=== PATIENT | female | born 1950 | race Caucasian/White ===

== ENCOUNTER 2020-04-28 13:29 | Inpatient (IN) | payer MEDICARE, OTHER ==
[~2020-04-28] VITALS: Ht 149 cm; Wt 90.7 kg
[~2020-04-28 13:29] MED LIST: CLN.1T PO; LISI1TAB46 PO; MTP25TSR PO; NF-METHI10 PO; OXYC1TAB87 PO; PROM25SU43 RC
[2020-04-28 13:55] LABS: BASOPHILS % (AUTO) 1 % (0-10); EOSINOPHILS # (AUTO) 0.2 10^3/uL (0.0-0.3); EOSINOPHILS % (AUTO) 2 % (0-10); HEMATOCRIT 46 % (35-52); HEMOGLOBIN 14.4 g/dL (11.5-16.0); LYMPHOCYTES % (AUTO) 31 % (12-44); MEAN CORPUSCULAR HEMOGLOBIN 28 pg (25-34); MEAN CORPUSCULAR HGB CONC 32 g/dL (32-36); MEAN CORPUSCULAR VOLUME 89 fL (80-99); MEAN PLATELET VOLUME 11.1 fL (9.0-12.2); MONOCYTES # (AUTO) 0.6 10^3/uL (0.0-1.0); MONOCYTES % (AUTO) 10 % (0-12); NEUTROPHILS # (AUTO) 3.7 10^3/uL (1.8-7.8); NEUTROPHILS % (AUTO) 56 % (42-75); PLATELET COUNT 276 10^3/uL (130-400); WHITE BLOOD COUNT 6.6 10^3/uL (4.3-11.0)
[2020-04-28 13:59] LABS: ALBUMIN 4.2 GM/DL (3.2-4.5); POTASSIUM 3.7 MMOL/L (3.6-5.0)
[2020-04-28 14:00] LABS: CALCIUM 9.6 MG/DL (8.5-10.1)
[2020-04-28 14:01] LABS: PROTHROMBIN TIME PATIENT 13.4 SEC (12.2-14.7)
[2020-04-28 14:02] LABS: TOTAL PROTEIN 7.5 GM/DL (6.4-8.2)
[2020-04-28 14:03] LABS: BILIRUBIN,TOTAL 0.3 MG/DL (0.1-1.0)
[2020-04-28 14:05] LABS: CREATININE SERUM 1.12 MG/DL (0.60-1.30)
--- NOTE | 2020-04-28 14:05 | Diagnostic Imaging Report ---
PROCEDURE: CT head without contrast. TECHNIQUE: Multiple contiguous axial images were obtained through the brain without the use of intravenous contrast. Auto Exposure Controls were utilized during the CT exam to meet ALARA standards for radiation dose reduction. INDICATION: Right-sided strokelike symptoms difficulty walking slurred speech FINDINGS: Noncontrast CT scan the head demonstrates mass effect midline shift hemorrhage or extra-axial fluid collections. Mason-white matter differentiation is normal. Ventricles cortical sulci and basilar cisterns appear normal. Osseous structures are normal. IMPRESSION: Normal noncontrast CT scan the head. Dictated by: Dictated on workstation # [id number]
--- NOTE | 2020-04-28 14:14 | Diagnostic Imaging Report ---
INDICATION: Stroke-like symptoms. FINDINGS: Frontal view of the chest demonstrates heart size to be borderline enlarged with normal vascularity. The lungs are clear. There are no pleural effusions. IMPRESSION: There is borderline cardiomegaly. No acute findings are present. Dictated by: Dictated on workstation # [id number]
--- NOTE | 2020-04-28 14:37 | ED Neurological Problem ---
General Chief Complaint: Neuro-Stroke Like Symptoms Stated Complaint: STROKE Nursing Triage Note: PT PRESENTS TO ED VIA EMS FROM HOME WITH COMPLAINTS OF R HAND AND R FOOT WEAKNESS AND SLURRED SPEACH STARTING SOMETIME LAST NIGHT AFTER SHE WENT TO BED AROUND 1030. PT REPORTS SHE WOKE UP AT 0300 THIS AM TO USE THE RESTROOM AND NOTICED HER R ARM FELT NUMB. Nursing Sepsis Screen: No Definite Risk History of Present Illness Date Seen by Provider: Apr 28, 2020 Time Seen by Provider: 13:32 Initial Comments Patient is a 77-year-old female who presents to the emergency department today with a chief complaint of right arm and right leg weakness. Patient states that she went to bed at around 1030 feeling completely normal. She woke up at 3:00 in the morning to go to the bathroom and noticed that she had some right leg weakness and possibly some right arm weakness at that time. Patient states she went back to bed and got up at around 7:00 this morning and was able to go about her daily activities with a little bit of a limp and noticed that her right arm coordination was a little bit off. Her noted some slurred speech later in the day and decided that they should call an ambulance. Patient denies any type of headache. She denies any recent fevers, chills, congestion or URI symptoms. No Covid concerns. Patient denies any history of trauma. She denies any visual problems. She does note that her speech is a little off. All other review of systems reviewed and negative except as stated. Timing/Duration: other (Since at least 3 AM in the morning this morning) Severity: moderate Associated Symptoms: weakness (Focal weakness right arm and right leg) Allergies and Home Medications Allergies Coded Allergies: Fish Containing Products (Unverified Allergy, Unknown, Rash, 05/01/20) adhesive tape (Verified Allergy, Unknown, HIVES, 12/11/14) cheese (Unverified Allergy, Unknown, Rash, 05/01/20) peanut (Unverified Allergy, Unknown, Rash, 05/01/20) Home Medications Acetaminophen 500 Mg Tablet, 500 MG PO for PAIN-MILD (1-4), (Reported) Aspirin 81 Mg Tablet.dr, 81 MG PO DAILY, (Reported) Cholecalciferol (Vitamin D3) 50 Mcg Capsule, 50 MCG PO SAT, (Reported) Clonidine HCl 0.1 Mg Tablet, 0.1 MG PO HS, (Reported) Fenofibrate Nanocrystallized 145 Mg Tablet, 145 MG PO HS, (Reported) Levothyroxine Sodium 112 Mcg Tablet, 112 MCG PO DAILY, (Reported) Lisinopril 40 Mg Tablet, 40 MG PO DAILY, (Reported) Loratadine 10 Mg Tablet, 10 MG PO DAILY, (Reported) Metoprolol Succinate 25 Mg Tab.er.24h, 25 MG PO DAILY, (Reported) Patient Home Medication List Home Medication List Reviewed: Yes Review of Systems Review of Systems Constitutional: see HPI Eyes: No Symptoms Reported Ears, Nose, Mouth, Throat: no symptoms reported Respiratory: no symptoms reported Cardiovascular: no symptoms reported Gastrointestinal: no symptoms reported Genitourinary: no symptoms reported Musculoskeletal: no symptoms reported Skin: no symptoms reported Psychiatric/Neurological: Weakness (Focal weakness right arm right leg) Past Glptjtv-Mchvcl-Ggoawj Hx Patient Social History Alcohol Use: Denies Use Smoking Status: Never a Smoker Recent Infectious Disease Expo: No Past Medical History Surgeries: Yes (RIGHT KIDNEY REMOVED, L MASTECTOMY, ) Hysterectomy Respiratory: Yes Sleep Apnea Currently Using CPAP: Yes Cardiac: Yes High Cholesterol, Hypertension Neurological: No Reproductive Disorders: No Genitourinary: No Gastrointestinal: No Musculoskeletal: No Endocrine: No (GETTING THYROID CHECKED OUT 12/12/14) Hypothyroidsim Cancer: Yes Breast Psychosocial: No Integumentary: Yes (SENSITIVE SKIN) Blood Disorders: No Family Medical History Arthritis 19 MOTHER Cataracts 19 MOTHER Colon cancer 19 MOTHER G8 SISTER Diabetes mellitus 19 MOTHER Psychosocial problem G8 BROTHER Thyroid disease 19 MOTHER Physical Exam Vital Signs Vital Signs - First Documented 04/28/20 13:33 Temp 36.9 Pulse 86 Resp 18 B/P (MAP) 201/113 (142) Pulse Ox 96 Capillary Refill : Less Than 3 Seconds Height, Weight, BMI Height: 5'0.00" Weight: 195lbs. oz. 88.658102tl; 40.00 BMI Method: General Appearance: WD/WN, no apparent distress HEENT: PERRL/EOMI Neck: full range of motion Respiratory: lungs clear, normal breath sounds, no respiratory distress, no accessory muscle use Cardiovascular: regular rate, rhythm, no murmur Gastrointestinal: non tender, soft Back: normal inspection Extremities: normal inspection, no pedal edema, no calf tenderness Neurologic/Psychiatric: alert, normal mood/affect, oriented x 3, abnormal cerebellar tests, motor weakness (Right arm right leg) Crainal Nerves: normal hearing, abnormal speech (Very mild dysarthria), tongue deviation to L Coordination/Gait: negative Romberg's sign, ABN nose to finger (R) Motor/Sensory: no sensory deficit, no pronator drift, negative Babinski's sign Skin: normal color, warm/dry Stroke NIH Stroke Scale Assessment Level of Consciousness: 0=Alert (0), Level of Consciousness-Questions: 0=Answers both month/age (0), LOC Commands: 0=Performs both tasks (0), Visual Ureña: 0=No visual loss (0), Facial Movement (Facial Paresis): 0=Normal symmetrical mnt (0), Motor Function-Arms Right: 1=Drift (1), Motor Function- Arms Left: 0=No drift (0), Motor Function-Legs Right: 2=Some effort/gravity (2), Motor Function-Legs Left: 0=No drift (0), Limb Ataxia: 1=Present in one limb (1), Sensory: 0=Normal:no loss (0), Best Language: 0=No aphasia (0), Dysarthria: 1=Mild to moderate loss (1), Extinction & Inattention: 0=No abnormality (0), Total: 5 Progress/Results/Core Measures Results/Orders Lab Results Laboratory Tests Test 04/28/20 13:35 04/28/20 13:39 Range/Units Glucometer 116 H 70-110 MG/DL White Blood Count 6.6 4.3-11.0 10^3/uL Red Blood Count 5.11 3.80-5.11 10^6/uL Hemoglobin 14.4 11.5-16.0 g/dL Hematocrit 46 35-52 % Mean Corpuscular Volume 89 80-99 fL Mean Corpuscular Hemoglobin 28 25-34 pg Mean Corpuscular Hemoglobin Concent 32 32-36 g/dL Red Cell Distribution Width 13.2 10.0-14.5 % Platelet Count 276 130-400 10^3/uL Mean Platelet Volume 11.1 9.0-12.2 fL Immature Granulocyte % (Auto) 1 % Neutrophils (%) (Auto) 56 42-75 % Lymphocytes (%) (Auto) 31 12-44 % Monocytes (%) (Auto) 10 0-12 % Eosinophils (%) (Auto) 2 0-10 % Basophils (%) (Auto) 1 0-10 % Neutrophils # (Auto) 3.7 1.8-7.8 10^3/uL Lymphocytes # (Auto) 2.0 1.0-4.0 10^3/uL Monocytes # (Auto) 0.6 0.0-1.0 10^3/uL Eosinophils # (Auto) 0.2 0.0-0.3 10^3/uL Basophils # (Auto) 0.0 0.0-0.1 10^3/uL Immature Granulocyte # (Auto) 0.0 0.0-0.1 10^3/uL Prothrombin Time 13.4 12.2-14.7 SEC INR Comment 1.0 0.8-1.4 Activated Partial Thromboplast Time 22 L 24-35 SEC Sodium Level 139 135-145 MMOL/L Potassium Level 3.7 3.6-5.0 MMOL/L Chloride Level 106 98-107 MMOL/L Carbon Dioxide Level 22 21-32 MMOL/L Anion Gap 11 5-14 MMOL/L Blood Urea Nitrogen 16 7-18 MG/DL Creatinine 1.12 0.60-1.30 MG/DL Estimat Glomerular Filtration Rate 48 BUN/Creatinine Ratio 14 Glucose Level 167 H 70-105 MG/DL Calcium Level 9.6 8.5-10.1 MG/DL Corrected Calcium 9.4 8.5-10.1 MG/DL Total Bilirubin 0.3 0.1-1.0 MG/DL Aspartate Amino Transf (AST/SGOT) 38 H 5-34 U/L Alanine Aminotransferase (ALT/SGPT) 58 H 0-55 U/L Alkaline Phosphatase 73 40-136 U/L Total Protein 7.5 6.4-8.2 GM/DL Albumin 4.2 3.2-4.5 GM/DL Triglycerides Level 231 H <150 MG/DL Cholesterol Level 186 < 200 MG/DL LDL Cholesterol Direct 132 H 1-129 MG/DL VLDL Cholesterol 46 H 5-40 MG/DL HDL Cholesterol 41 40-60 MG/DL My Orders Orders - JEREMIAH CASTANON MD Ct Head Wo (04/28/20 13:48) Cbc With Automated Diff (04/28/20 13:48) Comprehensive Metabolic Panel (04/28/20 13:48) Ekg Tracing (04/28/20 13:48) Chest 1 View, Ap/Pa Only (04/28/20 13:48) Protime With Inr (04/28/20 13:48) Partial Thromboplastin Time (04/28/20 13:48) Aspirin Tablet (Aspirin Tablet) (04/28/20 15:00) Ns (Ivpb) (Sodium C... W/Nicardipine Iv (04/28/20 15:00) Medications Given in ED Vital Signs/I&O 04/28/20 13:33 Temp 36.9 Pulse 86 Resp 18 B/P (MAP) 201/113 (142) Pulse Ox 96 Blood Pressure Mean: 142 Progress Progress Note : Time: 14:34 Progress Note Case discussed with Dr. Foster at neurology. Patient at this time she believes has a very low likelihood of large vessel occlusion. And as the patient is so far outside any TPA window at this time would have nothing to offer this patient. She recommends MRI of the head and MRA of the head and neck tomorrow. She also cautioned on any significant interventions regarding her blood pressure. Case will be discussed with Dr. Dave on for the hospitalist service. Patient's blood pressure is currently 201/113 Initial ECG Impression Date: Apr 28, 2020 Initial ECG Impression Time: 14:15 Initial ECG Rate: 79 Initial ECG Rhythm: Normal Sinus Initial ECG Intervals: Normal Initial ECG Impression: Nonspecific Changes Diagnostic Imaging Diagonstic Imaging: CT Plain Films/CT/US/NM/MRI: head Comments [place], [place] NAME: ADE PIÑA [facility] REC#: [id number] PT STATUS: REG ER : 1950 PHYSICIAN: JEREMIAH CASTANON MD ADMIT DATE: 04/28/20/ER Signed Date of Exam:04/28/20 CT HEAD WO PROCEDURE: CT head without contrast. TECHNIQUE: Multiple contiguous axial images were obtained through the brain without the use of intravenous contrast. Auto Exposure Controls were utilized during the CT exam to meet ALARA standards for radiation dose reduction. INDICATION: Right-sided strokelike symptoms difficulty walking slurred speech FINDINGS: Noncontrast CT scan the head demonstrates mass effect midline shift hemorrhage or extra-axial fluid collections. Mason-white matter differentiation is normal. Ventricles cortical sulci and basilar cisterns appear normal. Osseous structures are normal. IMPRESSION: Normal noncontrast CT scan the head. Dictated by: Dictated on workstation # [id number] Dict: 04/28/20 1404 Trans: 04/28/201403 [id number] Interpreted by: MIRELLA WOOD MD Electronically signed by: MIRELLA WOOD MD 04/28/20 1404 [facility] [place], [place] NAME: ADE PIÑA [facility] REC#: [id number] PT STATUS: REG ER : 1950 PHYSICIAN: JEREMIAH CASTANON MD ADMIT DATE: 04/28/20/ER Signed Date of Exam:04/28/20 CHEST 1 VIEW, AP/PA ONLY INDICATION: Stroke-like symptoms. FINDINGS: Frontal view of the chest demonstrates heart size to be borderline enlarged with normal vascularity. The lungs are clear. There are no pleural effusions. IMPRESSION: There is borderline cardiomegaly. No acute findings are present. Dictated by: Dictated on workstation # [id number] Dict: 04/28/20 140 Trans: 04/28/20 143 [facility] [id number] Interpreted by: MIRELLA WOOD MD Electronically signed by: MIRELLA WOOD MD 04/28/20 143 Departure Communication (Admissions) Time/Spoke to Admitting Phy: 14:[address] Dave Impression Primary Impression: Acute CVA (cerebrovascular accident) Additional Impression: Hypertension Qualified Codes: I10 - Essential (primary) hypertension Disposition: ADMITTED INPATIENT Condition: Stable Admissions Decision to Admit Reason: Admit from ER (General) Decision to Admit/Date: Apr 28, 2020 Time/Decision to Admit Time: 14:47 Departure-Patient Inst. Referrals: JOSETTE BIGGS MD (PCP) Primary Care Physician JEREMIAH CASTANON MD Apr 28, 2020 14:37
[2020-04-28] MEDS ORDERED: ASPIRIN 325 MG (5 GR) TABLET PO ONE (15:00)
[2020-04-28] MEDS ORDERED: niCARdipine IV 50 MG in NS (IVPB) 230 ML IV SCH (15:00)
[2020-04-28 16:00] VITALS: BP 173/97
[2020-04-28 16:23] LABS: TRIGLYCERIDES 231 MG/DL (<150); VLDL CHOLESTEROL 46 MG/DL (5-40)
[2020-04-28 16:28] LABS: CHOLESTEROL 186 MG/DL (< 200); HDL CHOLESTEROL 41 MG/DL (40-60)
[2020-04-28] MEDS ORDERED: LEVO112T55 PO (16:34)
[2020-04-28] MEDS ORDERED: ACETAMINOPHEN 325 MG TABLET PO ONE (20:00)
[2020-04-29] MEDS ORDERED: niCARdipine IV 50 MG in NS (IVPB) 230 ML IV SCH (02:00)
[2020-04-29 03:20] LABS: BASOPHILS % (AUTO) 0 % (0-10); EOSINOPHILS # (AUTO) 0.2 10^3/uL (0.0-0.3); EOSINOPHILS % (AUTO) 2 % (0-10); HEMATOCRIT 45 % (35-52); HEMOGLOBIN 14.3 g/dL (11.5-16.0); LYMPHOCYTES # (AUTO) 2.3 10^3/uL (1.0-4.0); LYMPHOCYTES % (AUTO) 25 % (12-44); MEAN CORPUSCULAR HEMOGLOBIN 28 pg (25-34); MEAN CORPUSCULAR HGB CONC 32 g/dL (32-36); MEAN CORPUSCULAR VOLUME 88 fL (80-99); MEAN PLATELET VOLUME 11.5 fL (9.0-12.2); MONOCYTES # (AUTO) 0.9 10^3/uL (0.0-1.0); MONOCYTES % (AUTO) 10 % (0-12); NEUTROPHILS # (AUTO) 5.6 10^3/uL (1.8-7.8); NEUTROPHILS % (AUTO) 63 % (42-75); PLATELET COUNT 274 10^3/uL (130-400); WHITE BLOOD COUNT 8.9 10^3/uL (4.3-11.0)
[2020-04-29 03:35] LABS: POTASSIUM 3.8 MMOL/L (3.6-5.0)
[2020-04-29 03:36] LABS: CALCIUM 9.5 MG/DL (8.5-10.1)
[2020-04-29 03:40] LABS: CREATININE SERUM 1.06 MG/DL (0.60-1.30); PHOSPHORUS 3.5 MG/DL (2.3-4.7)
[2020-04-29 03:43] LABS: MAGNESIUM 2.1 MG/DL (1.6-2.4)
--- NOTE | 2020-04-29 04:49 | Pulmonary Consultation ---
History of Present Illness History of Present Illness Date Seen by Provider: Apr 29, 2020 Time Seen by Provider: 04:45 Date of Admission Allergies and Home Medications Allergies Coded Allergies: adhesive tape (Verified Allergy, Unknown, HIVES, 12/11/14) Home Medications Clonidine HCl 0.1 Mg Tablet, 0.1 MG PO DAILY, (Reported) Levothyroxine Sodium 112 Mcg Tablet, 115 MCG PO DAILY, (Reported) Metoprolol Succinate 25 Mg Tab.er.24h, 25 MG PO DAILY, (Reported) Past Fieskky-Loewze-Dzaveb Hx Patient Social History Alcohol Use: Denies Use Smoking Status: Never a Smoker Recent Infectious Disease Expo: No Past Medical History Surgeries: Yes (RIGHT KIDNEY REMOVED, L MASTECTOMY, ) Hysterectomy Respiratory: Yes Sleep Apnea Currently Using CPAP: Yes Cardiac: Yes High Cholesterol, Hypertension Neurological: No Reproductive Disorders: No Genitourinary: No Gastrointestinal: No Musculoskeletal: No Endocrine: No (GETTING THYROID CHECKED OUT 12/12/14) Hypothyroidsim Cancer: Yes Breast Psychosocial: No Integumentary: Yes (SENSITIVE SKIN) Blood Disorders: No Family Medical History Arthritis 19 MOTHER Cataracts 19 MOTHER Colon cancer 19 MOTHER G8 SISTER Diabetes mellitus 19 MOTHER Psychosocial problem G8 BROTHER Thyroid disease 19 MOTHER Review of Systems Time Seen by Provider: 04:49 Sepsis Event Evaluation Height, Weight, BMI Height: 5'0.00" Weight: 195lbs. oz. 88.946310pb; 40.85 BMI Method: Exam Exam Vital Signs Date Time Temp Pulse Resp B/P (MAP) Pulse Ox O2 Delivery O2 Flow Rate FiO2 04/29/20 04:00 93 Room Air 04/29/20 01:00 83 04/29/20 00:04 37.0 04/29/20 00:00 97 Room Air 04/28/20 23:00 85 18 179/93 (121) 94 Room Air 04/28/20 21:00 89 29 161/98 (119) 95 Room Air 04/28/20 20:00 98 Room Air 04/28/20 20:00 96 32 152/93 (112) 94 Room Air 04/28/20 19:17 36.5 88 18 147/86 (106) 96 Room Air 04/28/20 19:00 94 04/28/20 19:00 94 30 145/95 (112) 96 Room Air 04/28/20 18:00 91 11 153/93 (113) 96 Room Air 04/28/20 17:05 87 04/28/20 17:00 86 24 135/80 (98) 98 Room Air 04/28/20 16:29 86 17 150/94 (112) 99 Room Air 04/28/20 16:00 36.9 84 18 173/97 (142) 96 04/28/20 16:00 98 Room Air 04/28/20 13:33 36.9 86 18 201/113 (142) 96 I & O 04/29/20 07:00 Intake Total 1000 ml Output Total 2950 ml Balance -1950 ml Height & Weight Height: 5'0.00" Weight: 195lbs. oz. 88.437180lg; 40.85 BMI Method: Capillary Refill: Less Than 3 Seconds Gastrointestinal: non tender, soft Results Lab Laboratory Tests 04/28/20 13:39 04/29/20 02:39 Assessment/Plan Assessment/Plan Acute CVA with right sided weakness -Was not a candidate for TPA -[facility] neurology consulted while in the ED -Head CT is negative -Head MRI head and neck scheduled for this morning -Speech and PT/ot consulted -Pt passed bedside swallow eval HTNE -Cardene gtt is now off -Monitor -Restart home meds Hypothyroid -home meds restart FRANCINE MIKE DO Apr 29, 2020 04:49
[2020-04-29] MEDS ORDERED: ACETAMINOPHEN 325 MG TABLET PO PRN (06:00)
--- NOTE | 2020-04-29 07:26 | Diagnostic Imaging Report ---
INDICATION: Dyspnea. COMPARISON: 04/28/2020 FINDINGS: Single frontal radiograph view of the chest was obtained and shows normal cardiac silhouette and pulmonary vasculature. Evaluation of lung damian show asymmetric elevation right hemidiaphragm. Lungs are otherwise clear. There is no large effusion or pneumothorax. Osseous structures show no acute adverse interval change. IMPRESSION: 1. No acute cardiopulmonary process. Dictated by: Dictated on workstation # [id number]
[2020-04-29] MEDS ORDERED: LISI40TA PO (08:27)
[2020-04-29] MEDS ORDERED: FENO145T26 PO (08:27)
[2020-04-29] MEDS ORDERED: ASPI-1238 PO (08:27)
[2020-04-29] MEDS ORDERED: LORA10TA76 PO (08:27)
[2020-04-29] MEDS ORDERED: CHOL20002 PO (08:27)
[2020-04-29] MEDS ORDERED: ACET-2267 PO (08:27)
--- NOTE | 2020-04-29 08:28 | NUR ---
SPOKE WITH THE PT AND WENT THRU THE EXT MED HISTORY TO COMPLETE THE MED REC PT WAS ABLE TO TELL ME HOW/WHEN SHE TAKES EACH MED OTC MEDS: CLARITIN TYLENOL EXTRA STRENGTH ASPIRIN 81MG VIT D3 2000IU ACCORDING TO THE PT SHE TAKES AN OTC VITAMIN D3 2000 ONCE WEEKLY ON WEDNESDAY
[2020-04-29] MEDS: ASPIRIN 325 MG (5 GR) TABLET PO SCH (08:32)
--- NOTE | 2020-04-29 09:04 | History & Physical-Hospitalist ---
GLORIA BAJWA,MED STUDENT 04/29/20 0904: History of Present Illness HPI/Chief Complaint Patient is a 69yo female with a PMH of hypertension, hyperlipidemia and hypothyroidism presenting to [facility] ED via EMS c/o right arm and leg weakness that began yesterday morning. She states she went to bed around 2230 the night before and felt normal. She got up around 0300 to go to the bathroom and noticed she "didn't feel right" and noticed weakness of her right arm and leg. She states she got up around 0700 to make breakfast and walk her dog and noticed her balance and coordination was slightly off. She also notes her noticed some slurred speech. She denies headache, changes in vision or hearing, dizziness or lightheadedness, or chest pain. Source: patient Exam Limitations: no limitations Date Seen 04/29/20 Attending Physician Dawna Dave MD PCP Elke Hood MD Referring Physician Date of Admission Apr 28, 2020 at 14:54 Home Medications & Allergies Home Medications Reviewed patient Home Medication Reconciliation performed by pharmacy medication reconciliations master automotive glass technician and/or nursing. Patients Allergies have been reviewed. Allergies Allergies Coded Allergies adhesive tape (Verified Allergy, Unknown, HIVES, 12/11/14) Past Gwpoeai-Pyszfc-Wrfrvn Hx Patient Social History Marrital Status: Alcohol Use: Denies Use Recreational Drug Use: No Smoking Status: Never a Smoker Recent Foreign Travel: No Contact w/other who traveled: No Recent Infectious Disease Expo: No Past Medical History Surgeries: Hysterectomy Currently Using CPAP: Yes Cardiac: High Cholesterol, Hypertension Reproductive: No Endocrine: Hypothyroidsim Cancer: Breast History of Blood Disorders: No Family History Arthritis 19 MOTHER Cataracts 19 MOTHER Colon cancer 19 MOTHER G8 SISTER Diabetes mellitus 19 MOTHER Psychosocial problem G8 BROTHER Thyroid disease 19 MOTHER Review of Systems Constitutional: see HPI; No chills, No dizziness, No fever; weakness EENTM: No hearing loss, No blurred vision, No double vision, No vision loss Respiratory: No cough, No short of breath, No wheezing Cardiovascular: No chest pain, No edema, No palpitations, No syncope Gastrointestinal: No abdominal pain, No constipation, No diarrhea, No nausea, No vomiting Genitourinary: No dysuria, No frequency, No hematuria Musculoskeletal: see HPI Skin: no symptoms reported Physical Exam Physical Exam Vital Signs Vital Signs - First Documented 04/28/20 13:33 Temp 36.9 Pulse 86 Resp 18 B/P (MAP) 201/113 (142) Pulse Ox 96 Capillary Refill : Less Than 3 Seconds Height, Weight, BMI Height: 5'0.00" Weight: 195lbs. oz. 88.233746uu; 40.85 BMI Method: General Appearance: No Apparent Distress, WD/WN HEENT: PERRL/EOMI, Pharynx Normal, Moist Mucous Membranes Neck: Full Range of Motion, Non Tender, Supple Respiratory: Lungs Clear, No Accessory Muscle Use, No Respiratory Distress Cardiovascular: Regular Rate, Rhythm, No Edema, No Murmur, Normal Peripheral Pulses Gastrointestinal: Normal Bowel Sounds, Non Tender, Soft Extremity: Normal Capillary Refill, Non Tender, No Calf Tenderness, No Pedal Edema Neurologic/Psychiatric: Alert, Oriented x3, Normal Mood/Affect; No Facial Droop; Motor Weakness; No Sensory Deficit Skin: Normal Color, Warm/Dry Results Results/Procedures Labs Laboratory Tests 04/28/20 13:39 04/29/20 02:39 Patient resulted labs reviewed. Assessment/Plan Assessment and Plan Acute CVA with right-sided motor weakness Not a candidate for TPA due to time from onset of symptoms Head CT negative for hemorrhage Scheduled for MRI this morning Passed bedside swallow evaluation [facility] neurology consulted, believed low likelihood of large vessel occlusion, did not recommend transfer PT and OT Telemetry Hypertension Now off Cardene Restart home medications Hypothyroidism Restart levothyroxine Hyperlipidemia Restart home medications CLOVIS REARDON MD 04/29/20 1657: History of Present Illness Time Seen by a Provider: 14:36 Past Vcsysag-Qlrnpe-Iakowf Hx Past Med/Social Hx: Reviewed Nursing Past Med/Soc Hx Family History Arthritis 19 MOTHER Cataracts 19 MOTHER Colon cancer 19 MOTHER G8 SISTER Diabetes mellitus 19 MOTHER Psychosocial problem G8 BROTHER Thyroid disease 19 MOTHER Results Results/Procedures Imaging: Reviewed Imaging Report Imaging [facility] [place], [place] NAME: ADE PIÑA MED REC#: [id number] PT STATUS: REG ER : 1950 PHYSICIAN: JEREMIAH CASTANON MD ADMIT DATE: 04/28/20/ER Signed Date of Exam:04/28/20 CT HEAD WO PROCEDURE: CT head without contrast. TECHNIQUE: Multiple contiguous axial images were obtained through the brain without the use of intravenous contrast. Auto Exposure Controls were utilized during the CT exam to meet ALARA standards for radiation dose reduction. INDICATION: Right-sided strokelike symptoms difficulty walking slurred speech FINDINGS: Noncontrast CT scan the head demonstrates mass effect midline shift hemorrhage or extra-axial fluid collections. Mason-white matter differentiation is normal. Ventricles cortical sulci and basilar cisterns appear normal. Osseous structures are normal. IMPRESSION: Normal noncontrast CT scan the head. Dictated by: Dictated on workstation # [id number] Dict: 04/28/20 1404 Trans: 04/28/20 140 [id number] Interpreted by: MIRELLA WOOD MD Electronically signed by: MIRELLA WOOD MD 04/28/20 1404 Assessment/Plan Admission Diagnosis Acute CVA Admission Status: Inpatient Order (span 2 midnights) Reason for Inpatient Admission: see below Assessment and Plan Pt admitted with acute onset right sided weakness. Unfortunately presented outside of the window for TPA. ER discussed the case with [facility] stroke neurology who agreed with management here as not interventions were recommended. MRI ordered for definitive diagnosis. PT/OT consulted. Passed bedside swallow evaluation. Continue aspirin. Will start on statin. IRU consult placed. BP improved off cardene gtt. Slowly return to normal range given acute infarct. Supervisory-Addendum Brief Verification & Attestation Participated in pt care: history, MDM, physical Personally performed: exam, history, MDM, supervision of care Care discussed with: Medical Student Procedures: n/a Results interpretation: Verified all documentation Verification and Attestation of Medical Student E/M Service A medical student performed and documented this service in my presence. I reviewed and verified all information documented by the medical student and made modifications to such information, when appropriate. I personally performed the physical exam and medical decision making. Clovis Reardon, Apr 30, 2020,14:37 GLORIA BAJWA,MED STUDENT Apr 29, 2020 09:04 CLOVIS REARDON MD Apr 29, 2020 16:57
--- NOTE | 2020-04-29 09:57 | Physical Therapy Evaluation ---
PT Evaluation-General Medical Diagnosis Admission Date Apr 28, 2020 at 14:54 Medical Diagnosis: acute CVA Onset Date: Apr 28, 2020 Therapy Diagnosis Therapy Diagnosis: generalized weakness/debility Height/Weight Height (Feet): 5 Height (Inches): 0.00 Weight (Pounds): 195 Precautions Precautions/Isolations: Fall Prevention, Standard Precautions Referral Physician: Jolie Reason for Referral: Evaluation/Treatment Medical History Pertinent Medical History: HTN, Hypothroidism Current History EMS secondary to right UE and LE weakness and slurred speech Reviewed History: Yes Social History Home: Single Level Current Living Status: Spouse Prior Prior Level of Function SCALE: Activities may be completed with or without assistive devices. 2-Hmkgrensyc-qykvmnj completes the activity by him/herself with no assistance from a helper. 5-Set-up or Clean-up Assistance-helper sets up or cleans up; patient completes activity. [place] assists only prior to or following the activity. 4-Supervision or Touching Assistance-helper provides verbal cues and/or touching/steadying and/or contact guard assistance as patient completes activity. Assistance may be provided throughout the activity or intermittently. 3-Partial/Moderate Assistance-helper does LESS THAN HALF the effort. [place] lifts, holds or supports trunk or limbs, but provides less than half the effort. 2-Substantial/Maximal Assistance-helper does MORE THAN HALF the effort. [place] lifts or holds trunk or limbs and provides more than half the effort. 3-Hqbhiclcj-opqqor does ALL the effort. Patient does none of the effort to complete the activity. Or, the assistance of 2 or more helpers is required for the patient to complete the activity. If activity was not attempted, code reason: 7-Patient Refused. 9-Not Applicable-not attempted and the patient did not perform the activity before the current illness, exacerbation or injury. 10-Not Attempted due to Environmental Limitations-(lack of equipment, weather restraints, etc.). 88-Not Attempted due to Medical Conditions or Safety Concerns. Bed Mobility: 6 Transfers (B,C,W/C): 6 Gait: 6 Stairs: 6 Indoor Mobility (Ambulation): Independent Stairs: Independent Prior Devices Use: None PT Evaluation-Current Subjective Patient agrees to PT. Objective Patient Orientation: Normal For Age ROM/Strength ROM Lower Extremities bilateral LE WFL Strength Lower Extremities left LE 4-/5 grossly/right knee flexion/extension 3-/5; hip flexion 2-/5; DF/PF 2/5 Integumentary/Posture Integumentary refer to nursing notes Bowel Incontinence: No Bladder Incontinence: Manrique Cath Posture WFL Neuromuscular (Tone, Coordination, Reflexes) severely diminished coordination and proprioception right UE/LE Sensory Vision: Functional Hearing: Functional Transfers Lying to Sitting/Side of Bed(Q: 3 Sit to Stand (QC): 2 Chair/Mpv-be-Hyixu Xfer(QC): 2 difficulty with weight bearing right LE with SPT Gait Does the Patient Walk?: No and Walking Goal IS indicated Balance Sitting Static: Fair Sitting Dynamic: Fair Standing Static: Poor Standing Dynamic: Poor Picking up an Object (QC): 88 Assessment/Needs 69 y.o. female, will benefit from skilled PT to address functional strength and mobility to improve current LOF to safely return to home with spouse at maximum LOF. Rehab Potential: Fair PT Short Term Goals Short Term Goals Time Frame: May 10, 2020 Roll Left & Right: 4 Sit to lyin Lying to sitting on side of be: 4 Sit to stand: 4 Chair/seb-wm-iagwl transfer: 4 Toilet transfer: 4 Walk 10 feet: 4 Walk 50 feet with two turns: 4 PT Mcc Goals Mcc Goals PT Mcc Goals Time Frame: May 18, 2020 Roll Left & Right (QC): 5 Sit to Lying (QC): 5 Lying-Sitting on Side/Bed(QC): 5 Sit to Stand (QC): 5 Chair/Enz-fv-Owrvo Xfer(QC): 5 Toilet Transfer (QC): 5 Car Transfer (QC): 5 Does the Patient Walk: Yes Walk 10 feet (QC): 5 Walk 50ft with 2 Turns (QC): 5 Walk 150 ft (QC): 5 PT Plan Problem List Problem List: Activity Tolerance, Functional Strength, Safety, Balance, Gait, Transfer, Bed Mobility Treatment/Plan Treatment Plan: Continue Plan of Care Treatment Plan: Bed Mobility, Education, Functional Strength, Gait, Safety, Therapeutic Exercise, Transfers Treatment Duration: May 18, 2020 Frequency: 6 times per week Estimated Hrs Per Day: .5 hour per day Patient and/or Family Agrees t: Yes Discharge Recommendations Therapy Discharge Recommendati: Other, See Comments (ARU) Time/GCodes Time In: 820 Time Out: 843 Total Billed Treatment Time: 23 Total Billed Treatment 1 visit EVMod 23 min JOHN ZAMORA PT Apr 29, 2020 09:57
--- NOTE | 2020-04-29 10:07 | Occ Therapy Progress Note ---
Therapy Progress Note OT talked with pt's nurse who states pt on hold at this time due to BP issues. OT will check back later today. [id number] ASHOK CORREIA OT Apr 29, 2020 10:07
[2020-04-29] MEDS ORDERED: VITAMIN D3 25 MCG (1,000 UNITS) TABLET PO SCH (10:15)
[2020-04-29] MEDS ORDERED: lisINopril 40 MG (PRINIVIL) TABLET ONE (10:23)
[2020-04-29] MEDS: lisINopril 40 MG (PRINIVIL) TABLET PO SCH (10:29)
--- NOTE | 2020-04-29 11:41 | NUR ---
Pt is Druze and consented to Communion but is currently going for test.
[2020-04-29] MEDS ORDERED: GADOBUTROL 10 MMOL/10 ML (GADAVIST) VIAL IV ONE (11:45)
[2020-04-29] MEDS ORDERED: LEVO112T68 PO (13:04)
--- NOTE | 2020-04-29 13:06 | Speech Therapy Progress Note ---
Therapy Progress Note ST attempted to complete evaluation order this afternoon. Patient does not exhibit facial droop at this time. Speech is also noted to be intelligible without slurring noted. Patient's ST order is being discharged at this time. ST will follow up on Wednesday. ANTHONY REY Apr 29, 2020 13:06
--- NOTE | 2020-04-29 13:16 | Diagnostic Imaging Report ---
PROCEDURE: MR imaging of the brain without contrast. TECHNIQUE: Multiplanar, multisequence MR imaging of the brain was performed without contrast. INDICATION: Acute CVA. No prior MRI brain studies are available for comparison. Diffusion weighted images demonstrate a small area of diffusion restriction just lateral to the thalamus on the left side consistent with an acute infarct. No other areas of diffusion restriction are seen. Ventricular size and sulcal pattern are normal. There is no midline shift. The normal expected flow-voids within the carotid siphons are seen. There is periventricular and subcortical white matter signal abnormalities consistent with chronic microvascular ischemia. No acute intra-axial or extra-axial hemorrhage is detected. Corpus callosum is unremarkable. The sella and parasellar structures are unremarkable. IMPRESSION: 1. Acute lacunar infarct just lateral to the left thalamus in the region of the posterior basal ganglia. No acute intercranial hemorrhage is detected. 2. Changes of chronic microvascular ischemia. Dictated by: Dictated on workstation # [id number]
--- NOTE | 2020-04-29 14:01 | Diagnostic Imaging Report ---
PROCEDURE: MR angiography of the brain without the use of contrast. TECHNIQUE: 3D emvt-vp-zuuniq non contrast enhanced MR angiography of the head was performed. A source data was reformatted into rotating MIP projections. INDICATION: Possible stroke. No prior studies are available for comparison. There is flow in the distal internal carotid arteries. There is normal visualization of the middle cerebral arteries bilaterally. Right and left anterior cerebral arteries are patent. Right and left posterior cerebral arteries as well as the basilar artery are patent. There is flow in the distal vertebral arteries. No definite intracranial stenosis is seen. No aneurysm is identified. IMPRESSION: Unremarkable MRA of the head. Dictated by: Dictated on workstation # [id number]
--- NOTE | 2020-04-29 14:17 | Occupational Therapy Eval ---
OT Evaluation-General/PLF Medical Diagnosis Admission Date Apr 28, 2020 at 14:54 Medical Diagnosis: acute CVA Onset Date: Apr 28, 2020 Therapy Diagnosis Therapy Diagnosis: weakness, decreased ADL status. Height/Weight Height (Feet): 5 Height (Inches): 0.00 Weight (Pounds): 195 Precautions Precautions/Isolations: Fall Prevention, Standard Precautions Referral Physician: Jolie Referral Reason: Evaluation/Treatment Medical History Pertinent Medical History: HTN, Hypothroidism Additional Medical History HTN, hyperlipidemia, hypothyroidism, breast cancer Current History ED with c/o R arm weakness. Reviewed History: Yes Social History Home: Single Level Current Living Status: Spouse ADL-Prior Level of Function SCALE: Activities may be completed with or without assistive devices. 4-Mznccyxjxk-jlncctp completes the activity by him/herself with no assistance from a helper. 5-Set-up or Clean-up Assistance-helper sets up or cleans up; patient completes activity. [place] assists only prior to or following the activity. 4-Supervision or Touching Assistance-helper provides verbal cues and/or touching/steadying and/or contact guard assistance as patient completes activity. Assistance may be provided throughout the activity or intermittently. 3-Partial/Moderate Assistance-helper does LESS THAN HALF the effort. [place] lifts, holds or supports trunk or limbs, but provides less than half the effort. 2-Substantial/Maximal Assistance-helper does MORE THAN HALF the effort. [place] lifts or holds trunk or limbs and provides more than half the effort. 6-Lgyyslhcq-zynlor does ALL the effort. Patient does none of the effort to complete the activity. Or, the assistance of 2 or more helpers is required for the patient to complete the activity. If activity was not attempted, code reason: 7-Patient Refused. 9-Not Applicable-not attempted and the patient did not perform the activity before the current illness, exacerbation or injury. 10-Not Attempted due to Environmental Limitations-(lack of equipment, weather restraints, etc.). 88-Not Attempted due to Medical Conditions or Safety Concerns. ADL PLOF Comments Pt reports being independent at PLOF with all ADLS and functional mobility, no AD. She has a walk in shower, no chair and she does not think that a shower chair will fit. Self Care: Independent Functional Cognition: Independent DME/Equipment: Shower OT Current Status Subjective Pt laying in bed, at bedside. Pt agreeable to OT evaluation and tx. Mental Status/Objective Patient Orientation: Person, Place, Time, Situation Current Glasses/Contacts: Yes Hearing Aids: No Dentures/Partials: No Hand Dominance: Right Upper Extremity ROM WFL BUEs. Pt's RUE slightly slower with movements but full ROM. Upper Extremity Coordination slightly decreased RUE. Upper Extremity Sensation pt denies tingling/numbness BUEs ADL-Treatment Eating (QC): 6 (Pt reports independent with eating, able to feed self using primarily non dominant hand, but also able to cut food as needed using bilateral UEs.) Other Treatments Pt laying in bed, agreeable to OT tx. Nurse states pt okay to be seen at this time at bed level as pt is fatigued from sitting up in chair this AM. OT educated pt on purpose and benefit of OT, she verbalized understanding. Pt provided information about PLOF and home setup, then participated in UE screen. OT educated pt on completing UE exercises in order to increase BUE strength and activity tolerance. OT instructed pt to complete throughout the day as tolerated, with the following AROM: shoulder flexion, elbow flexion/extension, wrist flexion/extension and finger flexion/extension. Pt demo'd understanding, completing x5 reps each. Post tx, pt laying in bed, call light in reach and all needs met. Education OT Patient Education: Correct positioning, Modified ADL techniques, Progress toward Goal/Update tx plan, Purpose of tx/functional activities, Rehab process Teaching Recipient: Patient, Significant Other Teaching Methods: Demonstration, Discussion Response to Teaching: Verbalize Understanding, Return Demonstration OT Detention Goals Detention Goals Time Frame: May 17, 2020 Eating (QC): 6 Oral Hygiene (QC): 6 Toileting Hygiene (QC): 4 Shower/Bathe Self (QC): 4 Upper Body Dressing (QC): 5 Lower Body Dressing (QC): 4 On/Off Footwear (QC): 4 Additional Goals: 1-Demonstrate ADL Tasks, 2-Verbalize Understanding, 3- ImproveStrength/Vanesa 1=Demonstrate adherence to instructed precautions during ADL tasks. 2=Patient will verbalize/demonstrate understanding of assistive devices/modifications for ADL. 3=Patient will improve strength/tolerance for activity to enable patient to perform ADL's. OT Education/Plan Problem List/Assessment Assessment: Decreased Activ Tolerance, Decreased UE Strength, Impaired Funct Balance, Impaired I ADL's, Impaired Self-Care Skills Discharge Recommendations Plan/Recommendations: Continue POC Therapy Discharge Recommendati: Post Acute OT Treatment Plan/Plan of Care Patient would benefit from OT for education, treatment and training to promote independence in ADL's, mobility, safety and/or upper extremity function for ADL's. Plan of Care: ADL Retraining, Functional Mobility, UE Funct Exercise/Act Treatment Duration: May 17, 2020 Frequency: 5 times per week Estimated Hrs Per Day: .25 hour per day Rehab Potential: Good Time/GCodes Start Time: 13:52 Stop Time: 14:00 Total Time Billed (hr/min): 8 Billed Treatment Time 1, ASHOK CHAMBERLAIN OT Apr 29, 2020 14:17
--- NOTE | 2020-04-29 14:30 | Diagnostic Imaging Report ---
PROCEDURE: MR angiography neck with contrast. TECHNIQUE: Contrast-enhanced MR angiography of the neck was performed. Source data was reformatted into rotating MIP projection. INDICATION: Possible stroke. Both common carotid arteries appeared widely patent. Carotid bifurcations are unremarkable. The internal carotid arteries appear to be patent with no definite carotid stenosis is seen. Bilateral vertebral arteries appear to be patent. No vertebral stenosis is identified. Basilar artery is patent. IMPRESSION: Unremarkable MRA of the neck with contrast. Dictated by: Dictated on workstation # [id number]
--- NOTE | 2020-04-29 15:49 | NUR ---
Anointed by Fr Valera.
[2020-04-29] MEDS ORDERED: cloNIDine 0.1 MG (CATAPRES) TAB PO SCH (21:00)
[2020-04-29] MEDS ORDERED: FENOFIBRATE 134 MG (LOFIBRA) CAPSULE PO SCH (21:00)
--- NOTE | 2020-04-30 03:43 | Pulmonary Progress Note ---
ALEX LYN MED STUDENT 04/30/20 0343: Subjective Date Seen by a Provider: Apr 30, 2020 Time Seen by a Provider: 03:38 Subjective/Events-last exam Pt denies headache this morning. Pt states she feels stronger than yesterday. Sepsis Event Evaluation Height, Weight, BMI Height: 5'0.00" Weight: 195lbs. oz. 88.140954ma; 40.85 BMI Method: Exam Exam Vital Signs Date Time Temp Pulse Resp B/P (MAP) Pulse Ox O2 Delivery O2 Flow Rate FiO2 04/30/20 02:00 90 26 152/90 (110) 92 Room Air 04/30/20 01:00 94 37 145/84 (104) 92 Room Air 04/30/20 01:00 94 04/30/20 00:00 91 37 143/82 (102) 93 Room Air 04/29/20 23:00 88 30 137/82 (100) 94 Room Air 04/29/20 22:00 85 12 141/101 (114) 93 Room Air 04/29/20 21:00 93 Room Air 04/29/20 21:00 87 153/82 (105) 94 Room Air 04/29/20 20:30 91 34 165/83 (110) 93 Room Air 04/29/20 19:29 36.0 04/29/20 19:00 101 13 180/102 (128) 95 Room Air 04/29/20 19:00 101 04/29/20 18:00 101 9 169/140 (150) 96 Room Air 04/29/20 17:00 98 25 182/113 (136) 94 Room Air 04/29/20 16:12 36.4 04/29/20 16:00 91 7 175/106 (129) 97 Room Air 04/29/20 15:00 98 22 177/114 (135) 98 Room Air 04/29/20 14:00 93 16 170/97 (121) 98 Room Air 04/29/20 13:00 89 14 193/112 (139) 97 Room Air 04/29/20 12:39 90 04/29/20 12:00 93 25 185/114 (137) 98 Room Air 04/29/20 11:00 98 25 190/133 (152) 98 Room Air 04/29/20 08:00 92 20 165/95 (118) 95 Room Air 04/29/20 08:00 97 Room Air 04/29/20 07:54 35.9 04/29/20 06:38 86 04/29/20 06:00 82 12 153/95 (114) 93 Room Air 04/29/20 05:00 85 22 149/97 (114) 92 Room Air 04/29/20 04:00 87 23 151/92 (111) 93 Room Air 04/29/20 04:00 93 Room Air I & O 04/30/20 07:00 Intake Total 2150 ml Output Total 1800 ml Balance 350 ml Height & Weight Height: 5'0.00" Weight: 195lbs. oz. 88.947947um; 40.85 BMI Method: General Appearance: No Apparent Distress, WD/WN HEENT: PERRL/EOMI, Pharynx Normal, Moist Mucous Membranes Neck: Full Range of Motion, Non Tender, Supple Respiratory: Lungs Clear, No Accessory Muscle Use, No Respiratory Distress Cardiovascular: Regular Rate, Rhythm, No Edema, No Murmur, Normal Peripheral Pulses Capillary Refill: Less Than 3 Seconds Gastrointestinal: non tender, soft Extremity: Normal Capillary Refill, Non Tender, No Calf Tenderness, No Pedal Edema Neurologic/Psychiatric: Alert, Oriented x3, Normal Mood/Affect; No Facial Droop; Motor Weakness (Right arm and leg); No Sensory Deficit Skin: Normal Color, Warm/Dry Results Lab Laboratory Tests 04/28/20 13:39 04/29/20 02:39 Assessment/Plan Assessment/Plan Acute CVA with right sided weakness -Was not a candidate for TPA -[facility] neurology consulted while in the ED -MRI brain -Acute lacunar infarct lateral to left thalamus in posterior basal ganglia -Head CT is negative -Head and neck MRA unremarkable -Speech and PT/ot consulted -Pt passed bedside swallow eval HTNE -Cardene gtt is now off -Monitor -Restart home meds Hypothyroid -home meds restart FRANCINE MIKE DO 04/30/20 0401: Assessment/Plan Assessment/Plan Acute CVA with right sided weakness -Was not a candidate for TPA -[facility] neurology consulted while in the ED -MRI brain -Acute lacunar infarct lateral to left thalamus in posterior basal ganglia -Head CT is negative -Head and neck MRA unremarkable -Speech and PT/ot consulted -Pt passed bedside swallow eval HTNE -Cardene gtt is now off -Monitor -Restart home meds Hypothyroid -home meds restart Supervisory-Addendum Brief Verification & Attestation Participated in pt care: history, MDM, physical Personally performed: exam, history, MDM, supervision of care Care discussed with: Medical Student Procedures: n/a Results interpretation: Verified all documentation Verification and Attestation of Medical Student E/M Service A medical student performed and documented this service in my presence. I reviewed and verified all information documented by the medical student and made modifications to such information, when appropriate. I personally performed the physical exam and medical decision making. Francine Mike, Apr 30, 2020,04:01 ALEX LYN MED STUDENT Apr 30, 2020 03:43 FRANCINE MIKE DO Apr 30, 2020 04:01
[2020-04-30 03:46] LABS: BASOPHILS % (AUTO) 0 % (0-10); EOSINOPHILS # (AUTO) 0.1 10^3/uL (0.0-0.3); EOSINOPHILS % (AUTO) 1 % (0-10); HEMATOCRIT 44 % (35-52); LYMPHOCYTES # (AUTO) 2.2 10^3/uL (1.0-4.0); LYMPHOCYTES % (AUTO) 23 % (12-44); MEAN CORPUSCULAR HEMOGLOBIN 28 pg (25-34); MEAN CORPUSCULAR HGB CONC 32 g/dL (32-36); MEAN CORPUSCULAR VOLUME 88 fL (80-99); MEAN PLATELET VOLUME 11.1 fL (9.0-12.2); MONOCYTES # (AUTO) 0.9 10^3/uL (0.0-1.0); MONOCYTES % (AUTO) 9 % (0-12); NEUTROPHILS # (AUTO) 6.3 10^3/uL (1.8-7.8); NEUTROPHILS % (AUTO) 66 % (42-75); PLATELET COUNT 264 10^3/uL (130-400); WHITE BLOOD COUNT 9.6 10^3/uL (4.3-11.0)
[2020-04-30 03:59] LABS: POTASSIUM 3.9 MMOL/L (3.6-5.0)
[2020-04-30 04:00] LABS: CALCIUM 8.9 MG/DL (8.5-10.1)
[2020-04-30 04:05] LABS: CREATININE SERUM 1.04 MG/DL (0.60-1.30); PHOSPHORUS 3.6 MG/DL (2.3-4.7)
[2020-04-30] MEDS ORDERED: LEVOTHYROXINE 112 MCG (LEVOTHROID) TAB PO SCH (06:30)
--- NOTE | 2020-04-30 07:01 | NUR ---
PT TRANSFERRED FROM ICU VIA BED.CALL LIGHT WITHIN REACH. VOICES NOT NEED AT THIS TIME
[2020-04-30] MEDS: lisINopril 40 MG (PRINIVIL) TABLET PO SCH (08:10)
[2020-04-30] MEDS: ASPIRIN 325 MG (5 GR) TABLET PO SCH (08:10)
--- NOTE | 2020-04-30 08:28 | Diagnostic Imaging Report ---
CHEST 1 VIEW, AP/PA ONLY Indication: Dyspnea Comparison: 04/29/2020 Findings: Stable asymmetric elevation right hemidiaphragm. Visualized portions of the lungs are clear. Posterior lower lobes are poorly evaluated by portable radiography. No pleural effusion or pneumothorax. Stable cardiomediastinal silhouette. Impression: 1. No acute cardiopulmonary process by portable radiography. Dictated by: Dictated on workstation # [id number]
[2020-04-30] MEDS ORDERED: lisINopril 40 MG (PRINIVIL) TABLET PO SCH (09:00)
[2020-04-30] MEDS ORDERED: LORATADINE (CLARITIN) 10 MG TAB PO SCH (09:00)
[2020-04-30] MEDS ORDERED: ATOR40TA PO (09:28)
--- NOTE | 2020-04-30 09:40 | Physical Therapy Daily Note ---
PT Daily Note-Current Subjective Patient much improved from yesterday. Very alert and agreeable to participate with therapy. Mental Status Patient Orientation: Normal For Age Transfers SCALE: Activities may be completed with or without assistive devices. 7-Pcyrzbfuae-kozapju completes the activity by him/herself with no assistance from a helper. 5-Set-up or Clean-up Assistance-helper sets up or cleans up; patient completes activity. [place] assists only prior to or following the activity. 4-Supervision or Touching Assistance-helper provides verbal cues and/or touching/steadying and/or contact guard assistance as patient completes activity. Assistance may be provided throughout the activity or intermittently. 3-Partial/Moderate Assistance-helper does LESS THAN HALF the effort. [place] lifts, holds or supports trunk or limbs, but provides less than half the effort. 2-Substantial/Maximal Assistance-helper does MORE THAN HALF the effort. [place] lifts or holds trunk or limbs and provides more than half the effort. 3-Tzmvaunia-hkpbog does ALL the effort. Patient does none of the effort to complete the activity. Or, the assistance of 2 or more helpers is required for the patient to complete the activity. If activity was not attempted, code reason: 7-Patient Refused. 9-Not Applicable-not attempted and the patient did not perform the activity before the current illness, exacerbation or injury. 10-Not Attempted due to Environmental Limitations-(lack of equipment, weather restraints, etc.). 88-Not Attempted due to Medical Conditions or Safety Concerns. Sit to Stand (QC): 3 Gait Training Does the Patient Walk?: Yes Distance: 100' Walk 10 feet (QC): 3 Walk 50 ft with 2 Turns(QC): 3 Walk 150 ft (QC): 88 Gait Assistive Device: FWW right LE lag due to weakness with FWW Assessment Patient requires time to complete tasks. From a PT standpoint, patient would benefit from ARU to return to home with family safely. PT Short Term Goals Short Term Goals Time Frame: May 10, 2020 Roll Left & Right: 4 Sit to lyin Lying to sitting on side of be: 4 Sit to stand: 4 Chair/fuh-zx-dtlsm transfer: 4 Toilet transfer: 4 Walk 10 feet: 4 Walk 50 feet with two turns: 4 PT Jail Goals Jail Goals PT Jail Goals Time Frame: May 18, 2020 Roll Left & Right (QC): 5 Sit to Lying (QC): 5 Lying-Sitting on Side/Bed(QC): 5 Sit to Stand (QC): 5 Chair/Mtx-gd-Rgmjr Xfer(QC): 5 Toilet Transfer (QC): 5 Car Transfer (QC): 5 Does the Patient Walk: Yes Walk 10 feet (QC): 5 Walk 50ft with 2 Turns (QC): 5 Walk 150 ft (QC): 5 PT Plan Treatment/Plan Treatment Plan: Continue Plan of Care Treatment Plan: Bed Mobility, Education, Functional Strength, Gait, Safety, Therapeutic Exercise, Transfers Treatment Duration: May 18, 2020 Frequency: 6 times per week Estimated Hrs Per Day: .5 hour per day Patient and/or Family Agrees t: Yes Time/GCodes Time In: 845 Time Out: 900 Total Billed Treatment Time: 15 Total Billed Treatment 1 visit GT 15 min JOHN ZAMORA PT Apr 30, 2020 09:40
--- NOTE | 2020-04-30 10:19 | NUR ---
IRF Evaluation Determination: Accepted Chart review complete and findings discussed with Dr. Mays - patient accepted. Dr. Reardon notified. Met with patient to discuss details related to rehabilitation program. Patient is agreeable to admission and required therapy regimen. Anticipate admission, 04/30/20. Thank you for this referral.
--- NOTE | 2020-04-30 10:39 | NUR ---
provided prayer and Communion.
--- NOTE | 2020-04-30 10:41 | Consultation-Cardiology ---
HPI-Cardiology Cardiology Consultation: Date of Consultation 04/30/20 Time Seen by a Provider: 10:30 Date of Admission 04-28-20 Attending Physician Dawna Dave MD Admitting Physician Elke Hood MD Consulting Physician Hong Reyes MD HPI: Chief Complaint: Cryptogenic CVA Ms. Reed is a 69 yr old female who I have seen in 418. She reports on Wednesday she woke up early in the morning to use the BR and she felt a little unsteady, but went back to bed. As the day progressed on she continued to have progressive right UE and LE weakness. She then presented to the ED and was found to have had a CVA. She denies any c/o CP or SOB. She reports for the last 6 months she has had episodes of palpitations which last for approx 10-15 sec. The episodes present typically with activity and resolve on their own. S he has them several times a week. No syncope or near syncope. She feels her right sided weakness is improving. Review of Systems-Cardiology Review of Systems Constitutional: No chills, No fever Eyes: No vision change Ears/Nose/Throat: No epistaxis, No recent hearing loss Respiratory: As described under HPI Cardiovascular: As described under HPI Gastrointestinal: No constipation, No diarrhea, No nausea, No vomiting Genitourinary: No dysuria, No hematuria Musculoskeletal: no symptoms reported Skin: No rash on exposed areas, No ulcerations on exposed areas Psychiatric/Neurological: As described under HPI Hematologic: No bleeding abnormalities AOP-Fgosqy-Yyytra Hx Patient Social History Marrital Status: Smoking Status: Never a Smoker Past Medical History PMH As described under Assessment. Family Medical History Family Medical History: She reports her mother had "heart trouble" but does not know any details. She reports a younger brother with CAD. Family History: Arthritis 19 MOTHER Cataracts 19 MOTHER Colon cancer 19 MOTHER G8 SISTER Diabetes mellitus 19 MOTHER Psychosocial problem G8 BROTHER Thyroid disease 19 MOTHER Allergies and Home Medications Allergies Coded Allergies: adhesive tape (Verified Allergy, Unknown, HIVES, 12/11/14) Home Medications Acetaminophen 500 Mg Tablet, 500 MG PO for PAIN-MILD (1-4), (Reported) Aspirin 81 Mg Tablet., 81 MG PO DAILY, (Reported) Atorvastatin Calcium 40 Mg Tablet, 40 MG PO HS Prescribed by: CLOVIS MADRID on 04/30/20927 Cholecalciferol (Vitamin D3) 50 Mcg Capsule, 50 MCG PO SAT, (Reported) Clonidine HCl 0.1 Mg Tablet, 0.1 MG PO HS, (Reported) Fenofibrate Nanocrystallized 145 Mg Tablet, 145 MG PO HS, (Reported) Levothyroxine Sodium 112 Mcg Tablet, 112 MCG PO DAILY, (Reported) Lisinopril 40 Mg Tablet, 40 MG PO DAILY, (Reported) Loratadine 10 Mg Tablet, 10 MG PO DAILY, (Reported) Metoprolol Succinate 25 Mg Tab.er.24h, 25 MG PO DAILY, (Reported) Patient Home Medication List Home Medication List Reviewed: Yes Physical Exam-Cardiology Physical Exam Vital Signs/I&O 04/29/20 04/30/20 04/30/20 04/30/20 23:00 00:00 01:00 01:00 Pulse 88 91 94 94 Resp 30 37 37 B/P (MAP) 137/82 (100) 143/82 (102) 145/84 (104) Pulse Ox 94 93 92 O2 Delivery Room Air Room Air Room Air 04/30/20 04/30/20 04/30/20 04/30/20 02:00 03:00 04:00 05:00 Pulse 90 87 86 82 Resp 26 11 16 14 B/P (MAP) 152/90 (110) 136/82 (100) 148/83 (104) 152/91 (111) Pulse Ox 92 96 94 92 O2 Delivery Room Air Room Air Room Air Room Air 04/30/20 04/30/20 04/30/20 06:00 06:52 08:00 Temp 36.1 Pulse 84 89 85 Resp 16 16 B/P (MAP) 144/91 (108) 196/113 (140) Pulse Ox 95 91 O2 Delivery Room Air Room Air 04/29/20 23:59 Intake Total 1875 ml Output Total 1200 ml Balance 675 ml Capillary Refill : Less Than 3 Seconds Constitutional: AAO x 3, well-developed, well-nourished HEENT: PERRL, hearing is well preserved, oral hygience is good Neck: No carotid bruit; carotid pulses are 2 + bilaterally Respiratory: No accessory muscle use; chest expansion is symmetric, chest is bilaterally symmetric, lungs clear to auscultation Cardiovascular: regular rate-rhythm; No JVD; S1 and S2 Gastrointestinal: No tender; soft, round, audible bowel sounds Extremities: no lower extremity edema bilateral Neurologic/Psychiatric: other (RUE and RLE 3/5) Skin: No rash on exposed areas, No ulcerations on exposed areas Data Review Labs Laboratory Tests 04/30/20 03:33: White Blood Count 9.6, Red Blood Count 4.98, Hemoglobin 14.0, Hematocrit 44, Mean Corpuscular Volume 88, Mean Corpuscular Hemoglobin 28, Mean Corpuscular Hemoglobin Concent 32, Red Cell Distribution Width 13.2, Platelet Count 264, Mean Platelet Volume 11.1, Immature Granulocyte % (Auto) 0, Neutrophils (%) (Au to) 66, Lymphocytes (%) (Auto) 23, Monocytes (%) (Auto) 9, Eosinophils (%) (Auto) 1, Basophils (%) (Auto) 0, Neutrophils # (Auto) 6.3, Lymphocytes # (Auto) 2.2, Monocytes # (Auto) 0.9, Eosinophils # (Auto) 0.1, Basophils # (Auto) 0.0, Immature Granulocyte # (Auto) 0.0, Sodium Level 139, Potassium Level 3.9, Chloride Level 108H, Carbon Dioxide Level 21, Anion Gap 10, Blood Urea Nitrogen 14, Creatinine 1.04, Estimat Glomerular Filtration Rate 52, BUN/Creatinine Ratio 13, Glucose Level 134H, Calcium Level 8.9, Phosphorus Level 3.6, Magnesium Level 2.0 Microbiology 04/28/20 MRSA Screen - Final, Complete MRSA not isolated Laboratory Tests 04/28/20 13:39 04/29/20 02:39 04/30/20 03:33 A/P-Cardiology Assessment/Admission Diagnosis 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 Mays Continue current regimen We would like to thank Dr. Mays for this consult MILE WHEAT Apr 30, 2020 10:41
--- NOTE | 2020-04-30 11:32 | Discharge Summary ---
Diagnosis/Chief Complaint Date of Admission Apr 28, 2020 at 14:54 Date of Discharge Discharge Date: Apr 30, 2020 Admission Diagnosis Acute CVA Primary Care Elke Hood MD Discharge Summary Discharge Physical Exam Allergies: Coded Allergies: adhesive tape (Verified Allergy, Unknown, HIVES, 12/11/14) Vitals & I&Os Vital Signs Date Time Temp Pulse Resp B/P (MAP) Pulse Ox O2 Delivery O2 Flow Rate FiO2 04/30/20 09:00 Room Air 04/30/20 08:00 36.1 85 16 196/113 (140) 91 General Appearance: No Apparent Distress, WD/WN HEENT: PERRL/EOMI, Pharynx Normal Respiratory: Lungs Clear, No Accessory Muscle Use, No Respiratory Distress Cardiovascular: Regular Rate, Rhythm, No Edema, No Murmur, Normal Peripheral Pulses Gastrointestinal: Normal Bowel Sounds, Non Tender, Soft Extremity: Normal Capillary Refill, No Calf Tenderness, No Pedal Edema Skin: Normal Color, Warm/Dry Neurologic/Psychiatric: Alert, Oriented x3, Normal Mood/Affect, Motor Weakness (Right side) Hospital Course Patient is a 69yo female with a PMH of hypertension, hyperlipidemia and hypothyroidism who presented to [facility] ED on 04/28 due to right arm and leg weakness that began the morning before. She had gone to bed feeling normal and woke up with right arm and leg weakness and mild dysarthria. Her called EMS when he noticed the slight dysarthria. She was diagnosed with a suspected stroke, and neurology was consulted. She was well outside the window for TPA, and did not recommend intervention due to the low likelihood of a large vessel occlusion. MRI confirmed the presence of an acute lacunar infarct lateral to the left thalamus in the posterior basal ganglia. She was started on statin therapy, and blood pressure continued to improve off Cardene gtt. She passed a bedside swallow evaluation, began working with PT and OT, and will be evaluated for admission to IRF. Labs (last 24 hrs) Laboratory Tests 04/30/20 03:33: White Blood Count 9.6, Red Blood Count 4.98, Hemoglobin 14.0, Hematocrit 44, Mean Corpuscular Volume 88, Mean Corpuscular Hemoglobin 28, Mean Corpuscular Hemoglobin Concent 32, Red Cell Distribution Width 13.2, Platelet Count 264, Mean Platelet Volume 11.1, Immature Granulocyte % (Auto) 0, Neutrophils (%) (Auto) 66, Lymphocytes (%) (Auto) 23, Monocytes (%) (Auto) 9, Eosinophils (%) (Auto) 1, Basophils (%) (Auto) 0, Neutrophils # (Auto) 6.3, Lymphocytes # (Auto) 2.2, Monocytes # (Auto) 0.9, Eosinophils # (Auto) 0.1, Basophils # (Auto) 0.0, Immature Granulocyte # (Auto) 0.0, Sodium Level 139, Potassium Level 3.9, Chloride Level 108H, Carbon Dioxide Level 21, Anion Gap 10, Blood Urea Nitrogen 14, Creatinine 1.04, Estimat Glomerular Filtration Rate 52, BUN/Creatinine Ratio 13, Glucose Level 134H, Calcium Level 8.9, Phosphorus Level 3.6, Magnesium Level 2.0 Microbiology 04/28/20 MRSA Screen - Final, Complete MRSA not isolated Patient resulted labs reviewed. Pending Labs Laboratory Tests 04/30/20 03:33: White Blood Count 9.6, Red Blood Count 4.98, Hemoglobin 14.0, Hematocrit 44, Mean Corpuscular Volume 88, Mean Corpuscular Hemoglobin 28, Mean Corpuscular Hemoglobin Concent 32, Red Cell Distribution Width 13.2, Platelet Count 264, Mean Platelet Volume 11.1, Immature Granulocyte % (Auto) 0, Neutrophils (%) (Auto) 66, Lymphocytes (%) (Auto) 23, Monocytes (%) (Auto) 9, Eosinophils (%) (Auto) 1, Basophils (%) (Auto) 0, Neutrophils # (Auto) 6.3, Lymphocytes # (Auto) 2.2, Monocytes # (Auto) 0.9, Eosinophils # (Auto) 0.1, Basophils # (Auto) 0.0, Immature Granulocyte # (Auto) 0.0, Sodium Level 139, Potassium Level 3.9, Chlo ride Level 108, Carbon Dioxide Level 21, Anion Gap 10, Blood Urea Nitrogen 14, Creatinine 1.04, Estimat Glomerular Filtration Rate 52, BUN/Creatinine Ratio 13, Glucose Level 134, Calcium Level 8.9, Phosphorus Level 3.6, Magnesium Level 2.0 Discharge Home Medications: Active Scripts Active Lipitor (Atorvastatin Calcium) 40 Mg Tablet 40 Mg PO HS Reported Euthyrox (Levothyroxine Sodium) 112 Mcg Tablet 112 Mcg PO DAILY Aspirin EC (Aspirin) 81 Mg Tablet.dr 81 Mg PO DAILY Tylenol Extra Strength (Acetaminophen) 500 Mg Tablet 500 Mg PO PRN Claritin (Loratadine) 10 Mg Tablet 10 Mg PO DAILY Vitamin D3 (Cholecalciferol (Vitamin D3)) 50 Mcg Capsule 50 Mcg PO SAT Lisinopril 40 Mg Tablet 40 Mg PO DAILY Fenofibrate (Fenofibrate Nanocrystallized) 145 Mg Tablet 145 Mg PO HS Clonidine HCl 0.1 Mg Tablet 0.1 Mg PO HS Metoprolol Succinate 25 Mg Tab.er.24h 25 Mg PO DAILY Instructions to patient/family Please see electronic discharge instructions given to patient. GLORIA BAJWA,MED STUDENT Apr 30, 2020 11:32
--- NOTE | 2020-04-30 17:46 | Consultation-Cardiology ---
HPI-Cardiology Cardiology Consultation: Date of Consultation 04/30/20 Time Seen by a Provider: 17:10 Date of Admission Attending Physician Dawna Dave MD Admitting Physician Elke Hood MD Consulting Physician TERRI BECKHAM MD, MA, FACP, FACC, FSCAI, CCDS HPI: Chief Complaint: Reason for Cardiology consultation: Cryptogenic CVA Physician requesting consult: Dr Reardon HPI Ms. Reed is a 69 yr old female who I have seen in 418. She reports on Wednesday she woke up early in the morning to use the BR and she felt a little unsteady, but went back to bed. As the day progressed on she continued to have progressi ve right UE and LE weakness. She then presented to the ED and was found to have had a CVA. She denies any c/o CP or SOB. She reports for the last 6 months she has had episodes of palpitations which last for approx 10-15 sec. The episodes present typically with activity and resolve on their own. She has them several times a week. No syncope or near syncope. She feels her right sided weakness is improving. Review of Systems-Cardiology Review of Systems Constitutional: No chills, No fever Eyes: No vision change Ears/Nose/Throat: No epistaxis, No recent hearing loss Respiratory: As described under HPI Cardiovascular: As described under HPI Gastrointestinal: No constipation, No diarrhea, No nausea, No vomiting Genitourinary: No dysuria, No hematuria Musculoskeletal: no symptoms reported Skin: No rash on exposed areas, No ulcerations on exposed areas Psychiatric/Neurological: As described under HPI Hematologic: No bleeding abnormalities [id number] Hx Patient Social History Marrital Status: Smoking Status: Never a Smoker Past Medical History PMH As described under Assessment. Family Medical History Family Medical History: She reports her mother had "heart trouble" but does not know any details. She reports a younger brother with CAD. Family History: Arthritis 19 MOTHER Cataracts 19 MOTHER Colon cancer 19 MOTHER G8 SISTER Diabetes mellitus 19 MOTHER Psychosocial problem G8 BROTHER Thyroid disease 19 MOTHER Allergies and Home Medications Allergies Coded Allergies: adhesive tape (Verified Allergy, Unknown, HIVES, 12/11/14) Home Medications Acetaminophen 500 Mg Tablet, 500 MG PO for PAIN-MILD (1-4), (Reported) Aspirin 81 Mg Tablet., 81 MG PO DAILY, (Reported) Atorvastatin Calcium 40 Mg Tablet, 40 MG PO HS Prescribed by: CLOVIS REARDON on 04/30/20927 Cholecalciferol (Vitamin D3) 50 Mcg Capsule, 50 MCG PO SAT, (Reported) Clonidine HCl 0.1 Mg Tablet, 0.1 MG PO HS, (Reported) Fenofibrate Nanocrystallized 145 Mg Tablet, 145 MG PO HS, (Reported) Levothyroxine Sodium 112 Mcg Tablet, 112 MCG PO DAILY, (Reported) Lisinopril 40 Mg Tablet, 40 MG PO DAILY, (Reported) Loratadine 10 Mg Tablet, 10 MG PO DAILY, (Reported) Metoprolol Succinate 25 Mg Tab.er.24h, 25 MG PO DAILY, (Reported) Patient Home Medication List Home Medication List Reviewed: Yes Physical Exam-Cardiology Physical Exam Vital Signs/I&O 04/30/20 04/30/20 04/30/20 04/30/20 06:00 06:52 08:00 09:00 Temp 36.1 Pulse 84 89 85 Resp 16 16 B/P (MAP) 144/91 (108) 196/113 (140) Pulse Ox 95 91 O2 Delivery Room Air Room Air Room Air 04/30/20 00:00 Intake Total 1875 ml Output Total 1200 ml Balance 675 ml Capillary Refill : Less Than 3 Seconds Constitutional: AAO x 3, well-developed, well-nourished HEENT: PERRL, hearing is well preserved, oral hygience is good Neck: No carotid bruit; carotid pulses are 2 + bilaterally Respiratory: No accessory muscle use; chest expansion is symmetric, chest is bilaterally symmetric, lungs clear to auscultation Cardiovascular: regular rate-rhythm; No JVD; S1 and S2 Gastrointestinal: No tender; soft, round, audible bowel sounds Extremities: no lower extremity edema bilateral Neurologic/Psychiatric: other (RUE and RLE 3/5) Skin: No rash on exposed areas, No ulcerations on exposed areas Data Review Labs Laboratory Tests 04/30/20 03:33: White Blood Count 9.6, Red Blood Count 4.98, Hemoglobin 14.0, Hematocrit 44, Mean Corpuscular Volume 88, Mean Corpuscular Hemoglobin 28, Mean Corpuscular Hemoglobin Concent 32, Red Cell Distribution Width 13.2, Platelet Count 264, Mean Platelet Volume 11.1, Immature Granulocyte % (Auto) 0, Neutrophils (%) (Auto) 66, Lymphocytes (%) (Auto) 23, Monocytes (%) (Auto) 9, Eosinophils (%) (Auto) 1, Basophils (%) (Auto) 0, Neutrophils # (Auto) 6.3, Lymphocytes # (Auto) 2.2, Monocytes # (Auto) 0.9, Eosinophils # (Auto) 0.1, Basophils # (Auto) 0.0, Immature Granulocyte # (Auto) 0.0, Sodium Level 139, Potassium Level 3.9, Chloride Level 108H, Carbon Dioxide Level 21, Anion Gap 10, Blood Urea Nitrogen 14, Creatinine 1.04, Estimat Glomerular Filtration Rate 52, BUN/Creatinine Ratio 13, Glucose Level 134H, Calcium Level 8.9, Phosphorus Level 3.6, Magnesium Level 2.0 Microbiology 04/28/20 MRSA Screen - Final, Complete MRSA not isolated Laboratory Tests 04/29/20 02:39 04/30/20 03:33 A/P-Cardiology Assessment/Admission Diagnosis 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
--- NOTE | 2020-04-30 18:06 | Physician Query Clarification ---
"Physician Query-General Query to Physician: The medical record reflects the following clinical scenario: History/Risk factors: Sedentary, Hypothyroid Clinical Findings: Ht. 149 CM Wt 90.7 KG BMI 40.9 Treatment: Weight monitoring, Heart healthy diet/Recommendation for Wt. loss Question: What condition best reflects the above clinical scenario? Please document response in the Progress notes or Discharge Summary. 1. Obesity with BMI greater than 40 2. BMI 40.85 (as currently documented) 3. Other , with explanation of the clinical findings 4. Clinically undetermined, no explanation for the clinical findings Please remember a lack of response to the above will prompt a phone page by CDI/coding staff In responding to this query, please exercise your independent professional judgment. The purpose of this communication is to more accurately reflect the complexity of your patients condition. The fact that a question is asked does not imply that any particular answer is desired or expected. Thank you for timely response to this clarification. Salina Back, MSN, RN RN Specialist-Clinical Doc Improvement CD -Health Info Mgmt Operations [address] [facility] t: [phone] | f: [phone] If you are unable to reach me at my extension, I may be working from home. Please contact me at [phone] PHYSICIAN RESPONSE: Based on the clinical findings in the record, please respond to the query above on this document as an addendum. Physician Response: Physician Response 1 If you have questions please contact: Zookeeper: Ext: Thank you for your time and cooperation. Clinical Commodity Broker/Zookeeper This is a permanent part of the medical record SALINA BACK Apr 30, 2020 18:06 CLOVIS MADRID MD May 01, 2020 15:16"
--- NOTE | 2020-04-30 18:13 | Physician Query Clarification ---
"Physician Query-General Query to Physician: The medical record reflects the following clinical scenario: History/Risk factors: CVA, HTN Clinical Findings: BP on admission 201/113 Treatment: BP monitoring, Cardene gtt, oral AntiHypertensives Question: What condition best reflects the above clinical scenario? Please document response in the Progress notes or Discharge Summary. 1. Hypertensive Emergency 2. Hypertension (as currently documented) 3. Other , with explanation of the clinical findings 4. Clinically undetermined, no explanation for the clinical findings Please remember a lack of response to the above will prompt a phone page by CDI/coding staff In responding to this query, please exercise your independent professional judgment. The purpose of this communication is to more accurately reflect the complexity of your patients condition. The fact that a question is asked does not imply that any particular answer is desired or expected. Thank you for timely response to this clarification. Salina Back, MSN, RN RN Specialist-Clinical Doc Improvement CD -Health Info Mgmt Operations [address] [facility] t: [phone] | f: [phone] If you are unable to reach me at my extension, I may be working from home. Please contact me at [phone] PHYSICIAN RESPONSE: Based on the clinical findings in the record, please respond to the query above on this document as an addendum. Physician Response: Physician Response 1 If you have questions please contact: Can Dragger: Ext: Thank you for your time and cooperation. Clinical Pit Furnace Melter/Can Dragger This is a permanent part of the medical record SALINA BACK Apr 30, 2020 18:13 CLOVIS MADRID MD May 01, 2020 15:18"
== END 2020-04-30 11:25 | DRG 65 ==
LOC: EDUNIT# 13:29 → ER 13:30 → ICU 14:54 → 4TH 04-29 11:52 → ICU 04-29 11:54 → 4TH 04-30 06:41
PROVIDERS: ADMIT Internal Medicine; ATTEND Internal Medicine
DX: I63.9 Cerebral infarction, unspecified (principal); I16.1 Hypertensive emergency; Z68.41 Body mass index [BMI] 40.0-44.9, adult; G81.91 Hemiplegia, unspecified affecting right dominant side; Q60.0 Renal agenesis, unilateral; E66.9 Obesity, unspecified; I10 Essential (primary) hypertension; E03.9 Hypothyroidism, unspecified; E78.00 Pure hypercholesterolemia, unspecified; Z85.3 Personal history of malignant neoplasm of breast; Z90.12 Acquired absence of left breast and nipple; Z90.49 Acquired absence of other specified parts of digestive tract
CPT/HCPCS: 36415; 70450; 70544; 70548; 70551; 71045; 80048; 80053; 80061; 82962; 83735; 84100; 85025; 85610; 85730; 87081; 93005

== ENCOUNTER 2020-04-30 09:49 | Inpatient (IN) | payer MEDICARE, OTHER ==
[~2020-04-30] VITALS: Ht 149 cm; Wt 90.7 kg
[~2020-04-30 09:49] MED LIST changes: +ACET-2267 PO; +ASPI-1238 PO; +ATOR40TA PO; +CHOL20002 PO; +FENO145T26 PO; +LEVO112T55 PO; +LEVO112T68 PO; +LISI40TA9 PO; +LORA10TA76 PO
[2020-04-30 11:00] VITALS: BP 164/93
[2020-04-30] MEDS ORDERED: LACTULOSE SYRUP 10GM/15ML (ENULOSE) 30ML UDC PO PRN (11:00)
[2020-04-30] MEDS ORDERED: MELATONIN 3 MG TABLET PO PRN (11:00)
[2020-04-30] MEDS ORDERED: diphenhydrAMINE 25 MG TAB (BENADRYL) PO PRN (11:00)
[2020-04-30] MEDS ORDERED: FLEET ENEMA ADULT 1 EA BTL PR PRN (11:00)
[2020-04-30] MEDS ORDERED: CALCIUM CARBONATE 500 MG (TUMS) TAB.CHEW PO PRN (11:00)
[2020-04-30] MEDS ORDERED: BISACODYL 10 MG SUPP (DULCOLAX) PR PRN (11:00)
[2020-04-30] MEDS ORDERED: DOCUSATE SODIUM 100 MG (COLACE) CAP PO PRN (11:00)
[2020-04-30] MEDS ORDERED: ONDANSETRON 4 MG (ZOFRAN) ORAL DISSOLVE TAB PO PRN (11:00)
[2020-04-30] MEDS ORDERED: ACETAMINOPHEN 500 MG TAB (TYLENOL) PO PRN (11:00)
[2020-04-30] MEDS ORDERED: LOPERAMIDE 2 MG (IMODIUM) TABLET PO PRN (11:00)
[2020-04-30] MEDS ORDERED: guaiFENesin/CODEINE (ROBITUSSIN AC) 10ML UDC PO PRN (11:00)
[2020-04-30] MEDS ORDERED: ALPRAZolam 0.25 MG (XANAX) TAB PO PRN (11:00)
--- NOTE | 2020-04-30 11:13 | PM&R Post Admission Assessment ---
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 Cardiology was consulted and she suffered right sided weakness due to acute CVA. Pt is in need of strengthening the right side arm and leg and she will be admitted to inpatient rehab to return to baseline. Prior level of functioning was the use of no assistive devices and independent and working. Past Hgdftvx-Zylsvf-Xoplth Hx Past Med/Social Hx: Reviewed Nursing Past Med/Soc Hx, Reviewed and Corrections made Patient Social History Marrital Status: single Employed/Student: employed Alcohol Use: Denies Use Smoking Status: Never a Smoker Past Medical History Surgeries: Hysterectomy Currently Using CPAP: Yes Cardiac: High Cholesterol, Hypertension Reproductive: No Endocrine: Hypothyroidsim Cancer: Breast History of Blood Disorders: No Family History Arthritis 19 MOTHER Cataracts 19 MOTHER Colon cancer 19 MOTHER G8 SISTER Diabetes mellitus 19 MOTHER Psychosocial problem G8 BROTHER Thyroid disease 19 MOTHER PM&R Allergy/Meds/Data Review Allergies Coded Allergies: adhesive tape (Verified Allergy, Unknown, HIVES, 12/11/14) Home Medications Scheduled Aspirin (Aspirin EC), 81 MG PO DAILY, (Reported) Atorvastatin Calcium (Lipitor), 40 MG PO HS Cholecalciferol (Vitamin D3) (Vitamin D3), 50 MCG PO SAT, (Reported) Clonidine HCl (Clonidine HCl), 0.1 MG PO HS, (Reported) Fenofibrate Nanocrystallized (Fenofibrate), 145 MG PO HS, (Reported) Levothyroxine Sodium (Euthyrox), 112 MCG PO DAILY, (Reported) Lisinopril (Lisinopril), 40 MG PO DAILY, (Reported) Loratadine (Claritin), 10 MG PO DAILY, (Reported) Metoprolol Succinate (Metoprolol Succinate), 25 MG PO DAILY, (Reported) Scheduled PRN Acetaminophen (Tylenol Extra Strength), 500 MG PO for PAIN-MILD (1-4), (Reported) Discontinued Medications Levothyroxine Sodium (Levothyroxine Sodium), 115 MCG PO DAILY, (Reported) Discontinued Reason: Duplicate Order Lisinopril/Hydrochlorothiazide (Lisinopril-Hctz 20-12.5 mg Tab), 1 EACH PO DAILY, (Reported) Discontinued Reason: No Longer Taking Methimazole (Methimazole), 20 MG PO DAILY, (Reported) Discontinued Reason: No Longer Taking Oxycodone HCl/Acetaminophen (Percocet 5-325 mg Tablet), 2 EACH PO Q4H Discontinued Reason: No Longer Taking Promethazine HCl (Phenergan), 25 MG RC Q8H Discontinued Reason: No Longer Taking Current Medications Current Medications Reviewed Review of Systems Constitutional: see HPI, malaise, weakness EENTM: no symptoms reported Respiratory: no symptoms reported Cardiovascular: no symptoms reported Gastrointestinal: no symptoms reported Genitourinary: no symptoms reported Musculoskeletal: back pain Skin: no symptoms reported Psychiatric/Neurological: Weakness All Other Systems Reviewed Negative Unless Noted: Yes Physical Exam Physical Exam Vital Signs Capillary Refill : Height, Weight, BMI Height: 5'0.00" Weight: 195lbs. oz. 88.475343tn; 40.85 BMI Method: General Appearance: No Apparent Distress, WD/WN, Chronically ill, Obese Eyes: Bilateral Eye Normal Inspection, Bilateral Eye PERRL HEENT: PERRL/EOMI, Normal ENT Inspection, Pharynx Normal Neck: Full Range of Motion, Normal Inspection, Non Tender, Supple, Carotid Bruit Respiratory: Chest Non Tender, Lungs Clear, Normal Breath Sounds, No Accessory Muscle Use, No Respiratory Distress Cardiovascular: Regular Rate, Rhythm, No Edema, No Gallop, No JVD, No Murmur, Normal Peripheral Pulses Gastrointestinal: Normal Bowel Sounds, No Organomegaly, No Pulsatile Mass, Non Tender, Soft Back: Normal Inspection, No CVA Tenderness, No Vertebral Tenderness Extremity: Normal Capillary Refill, Normal Inspection, Normal Range of Motion, Non Tender, No Calf Tenderness, No Pedal Edema Neurologic/Psychiatric: Alert, Oriented x3, Normal Mood/Affect, Abnormal Gait, Motor Weakness (right upper extremity 3/5, right lower extremity 4/5) Skin: Normal Color, Warm/Dry Lymphatic: No Adenopathy PM&R Medical Assessment & Plan REHAB/MEDICAL ASSESSMENT AND PLAN: REHAB IMPAIRMENT GROUP: CVA ETIOLOGIC DIAGNOSIS: CVA The comorbidities that impact the patients function and/or functional outcome by: severe HTN, right side dominant weakness, fall risk REHAB PLAN: The patient is being admitted to our comprehensive inpatient rehabilitation facility and can tolerate the intensity of service consisting of at least: 180 minutes of therapy a day, 5 out of 7 days a week Rehab treatment will consist of: PT OT will focus on regaining function of right dominant side and use assistive devices in order to return home to live independently The patient/family has a good understanding of our discharge process and will benefit from an interdisciplinary inpatient rehabilitation program. The patient has potential to make improvement and is in need of at least two of the following multidisciplinary therapies including but not limited to physical, occupational, speech, and prosthetics and orthotics. Additionally the patient will need services from respiratory, nutritional services, wound care, psychology, etc. (Customize this to each patient). Given the patients complex condition and risk of further medical complications, rehabilitation services cannot be safely or effectively provided at a lower level of care such as a fci facility. BARRIERS TO DISCHARGE: Right side dominant weakness ESTIMATED LOS: 14 days DISPOSITION: Home RELEVANT CHANGES SINCE PREADMISSION SCREENING: I have compared the patients medical and functional status at the time of the preadmission screening and there are: no changes PROGNOSIS: Good REHABILITATION GOALS: 1. PT OT will focus on regaining function of right dominant side and use assistive devices in order to return home to live independently All the above goals were reviewed with the patient and he/she is in agreement. By signing this document, I acknowledge that I have personally performed a full physical examination on this patient within 24 hours of admission to this inpatient rehabilitation facility and have determined the patient to be able to tolerate the above course of treatment at an intensive level for a reasonable period of time. I will be completing a detailed individualized Plan of Care for this patient by day #4 of the patients stay based upon the Preadmission Screen, the Post-Admission Evaluation, and the therapy evaluations. Admission Dx/Comorbidities: (1) Acute CVA (cerebrovascular accident) Status: Acute ICD Codes: I63.9 - Cerebral infarction, unspecified (2) Hypertension Status: Acute ICD Codes: I10 - Essential (primary) hypertension Assessment/Plan Assessment and Plan Assess & Plan/Chief Complaint Assessment: CVA with right sided weakness HTN malignant type Hypothyroidism HLP Obesity Plan: IRF protocol Monitor BP Fall risk SUSI BAR DO Apr 30, 2020 11:13
[2020-04-30] MEDS ORDERED: ACETAMINOPHEN 325 MG TABLET PO PRN ×2 (12:00→19:15)
--- NOTE | 2020-04-30 12:26 | Occupational Therapy Eval ---
OT Evaluation-General/PLF Medical Diagnosis Admission Date Apr 30, 2020 at 11:20 Medical Diagnosis: CVA; R side weakness Onset Date: Apr 28, 2020 Therapy Diagnosis Therapy Diagnosis: Decreased ADL status Height/Weight Height (Feet): 5 Height (Inches): 0.00 Weight (Pounds): 195 Precautions Precautions/Isolations: Fall Prevention, Standard Precautions Weight Bear Status Weight Bearing Restriction: Weight Bearing/Tolerated Referral Physician: Tabatha Referral Reason: Activity Tolerance, Self Care, Evaluation/Treatment, Strengthening/ROM Medical History Pertinent Medical History: HTN, Hypothroidism Additional Medical History Hysterectomy, hihg cholesterol, HTN, hypothyroidism, breast ca. Current History Pt admits Friday 04/28 with R side weakness. L side CVA found. Reviewed History: Yes Social History Home: Single Level Current Living Status: Spouse Pt lives with spouse (retired) and grandson who has Autism. Pt's grandson high- level, works outside the home and does not require ADL assistance. However, requires transportation needs. ADL-Prior Level of Function SCALE: Activities may be completed with or without assistive devices. 3-Opjmvkzxpz-oeclnnd completes the activity by him/herself with no assistance from a helper. 5-Set-up or Clean-up Assistance-helper sets up or cleans up; patient completes activity. [place] assists only prior to or following the activity. 4-Supervision or Touching Assistance-helper provides verbal cues and/or touching/steadying and/or contact guard assistance as patient completes activity. Assistance may be provided throughout the activity or intermittently. 3-Partial/Moderate Assistance-helper does LESS THAN HALF the effort. [place] lifts, holds or supports trunk or limbs, but provides less than half the effort. 2-Substantial/Maximal Assistance-helper does MORE THAN HALF the effort. [place] lifts or holds trunk or limbs and provides more than half the effort. 2-Afrnfnhez-ayvoqa does ALL the effort. Patient does none of the effort to complete the activity. Or, the assistance of 2 or more helpers is required for the patient to complete the activity. If activity was not attempted, code reason: 7-Patient Refused. 9-Not Applicable-not attempted and the patient did not perform the activity before the current illness, exacerbation or injury. 10-Not Attempted due to Environmental Limitations-(lack of equipment, weather restraints, etc.). 88-Not Attempted due to Medical Conditions or Safety Concerns. ADL PLOF Comments Pt states IND without use of AD. Drives, works, cleans/ cooks. Self Care: Independent Functional Cognition: Independent DME/Equipment: Shower, Tub/Shower DME/Equipment Comments Has tub/shower and walk in. Pt is questioned on sc/ tub transfer bench, states the shower is too small for sc. Pt has room for tub transfer bench in tub/ shower bathroom. No gbs and no extended shower sprayer- pt is educated on use of these and pt states son is in town and can complete. Has walker available. Occupation: [employer] Self: Yes OT Current Status Subjective [id number]: Pt seen on 4th. AxO, sitting upright in chair. Pt denies pain, agrees to OT tx. [id number]: Pt seen with lunch in front of pt. Pt agrees to tx. Pt denies pain. OT/ PT co-treat from [id number] (15 min) to address higher level fx activity/ balance tasks in stance. OT addresses UE movement/ scanning/ problem solving; PT addresses gait/ balance/ LE movement. Mental Status/Objective Patient Orientation: Person, Place, Situation, Normal For Age Current Glasses/Contacts: Yes Hearing Aids: No Dentures/Partials: No Hand Dominance: Right Upper Extremity ROM WLF BUE Upper Extremity Coordination R side delay: 9 hole peg test: R 70.1 sec with 2 instances of dropping; L: 28.06 sec. Upper Extremity Sensation decreased Bilateral thumb per pt at PLOF. WFL/ no change since CVA. Upper Extremity Strength WFL BUE shoulder flexion: 4/5 bilaterally elbow flexion: 4/5 bilaterally rigger third strength: R: 52/48/47 lbs with 49 lb avg; L: 44/50/54 with 49.3 lb average. pinch strength: 3 jaw/ lateral pinch/ tip to tip: R: ; L: Edema: none ADL-Treatment Eating (QC): 6 (completes eating, requires assist from LUE to press through RUE intermittently for strength. ) Oral Hygiene (QC): 6 (seated, per clinical judgment.) Shower/Bathe Self (QC): 4 (SBA/ CGA in stance. Per pt and clinical judgement as pt refuses shower this afternoon (pt has already showered).) Upper Body Dressing (QC): 5 (per clinical judgment) Lower Body Dressing (QC): 3 (Pt able to thread BLE with increased time, requires min A to rod puller and coiler R hip. ) On/Off Footwear (QC): 3 (min A to stabilize RLE ) Toileting Hygiene (QC): 4 (CGA in stance per clinical judgment.) Other Treatments Pt completes SPT from chair to L side with CGA. Pt is pushed to 2nd floor ARU, completes hx and MMT/ ROM. Pt is brought to room, introduced to surroundings. Pt ambulates to gym (R LE slight delay) though requires rest break once in gym (w/c follows, pt sits). Pt states R LE fatigues. Sits EOM, completes rigger third/ pinch/ 9 hole peg test as outlined prior. Pt is educated on each result, educated on CVA and recovery process. Pt educated on ARU expectations and OT role. Pt states has ordered lunch for 1215, OT to return after lunch. Pt agrees, left with PT EOM end of session. [id number]: Pt completes feeding task (R assisted by L intermittently). Pt denies fatigue of RUE. Pt educated on HEP/ theraband and rigger third sponge task while feeding. Pt states no questions. Pt completes dressing task as outlined above, requiring min A for stabilization of RLE while dressing sock and hiking over R hip. Pt ambulates to gym, completing R UE reaching/ balance task/ midline crossing in stance with PT assist. Pt requires rest breaks intermittently. Pt leaning more on R side than L side, slight LOB at times though able to self regulate. Pt left with PT end of session. Education OT Patient Education: Correct positioning, Disease process, Exercise program, Purpose of tx/functional activities, Rehab process, Safety issues, Transfer techniques Teaching Recipient: Patient Teaching Methods: Demonstration, Discussion Response to Teaching: Verbalize Understanding, Return Demonstration, Reinforcement Needed OT Short Term Goals Short Term Goals Toileting hygiene: 5 Shower/bathe self: 5 Upper body dressin Lower body dressin Putting on/taking off footwear: 4 OT Console Attendant Goals Console Attendant Goals Time Frame: May 14, 2020 Eating (QC): 6 Oral Hygiene (QC): 6 Toileting Hygiene (QC): 6 Shower/Bathe Self (QC): 6 Upper Body Dressing (QC): 6 Lower Body Dressing (QC): 6 On/Off Footwear (QC): 6 Additional Goals: 1-Demonstrate ADL Tasks, 2-Verbalize Understanding, 3- ImproveStrength/Vanesa 1=Demonstrate adherence to instructed precautions during ADL tasks. 2=Patient will verbalize/demonstrate understanding of assistive devices/modifications for ADL. 3=Patient will improve strength/tolerance for activity to enable patient to perform ADL's. OT Education/Plan Problem List/Assessment Assessment: Decreased Activ Tolerance, Decreased UE Strength, Dependent Transfers, Impaired Coordination, Impaired Funct Balance, Impaired I ADL's, Impaired Self-Care Skills Discharge Recommendations Plan/Recommendations: Continue POC Therapy Discharge Recommendati: Home & Family, Post Acute OT Equpiment Recommendations-D/C: Extended Bath Bench, Rails on Tub/Shower, Extended Shower Sprayer Treatment Plan/Plan of Care Treatment,Training & Education: Yes Patient would benefit from OT for education, treatment and training to promote independence in ADL's, mobility, safety and/or upper extremity function for ADL's. Plan of Care: ADL Retraining, Caregiver Training, Concurrent Therapy, Functional Mobility, Group Exercise/Act as Ind, Orthotic Fitting/Training, UE Funct Exercise/Act, UE Neuromus Re-Ed/Coord Treatment Duration: May 14, 2020 Frequency: At least 5 of 7 days/Wk (IRF) Estimated Hrs Per Day: 1.5 hours per day Agreement: Yes Rehab Potential: Good Time/GCodes Start Time: 11:20 (1235) Stop Time: 12:00 (1325) Total Time Billed (hr/min): 90 (40+50) Billed Treatment Time [id number]: 1, EVM (10), EX 2 (30)=40 4062-6366: 1, ADL 2, NM (50) OT/ PT co-treat from [id number] (15 min) to address higher level fx activity/ balance tasks in stance. OT addresses UE movement/ scanning/ problem solving; PT addresses gait/ balance/ LE movement. Total: 90 KANG ODONNELL OTR Apr 30, 2020 12:26
--- NOTE | 2020-04-30 14:57 | Physical Therapy Evaluation ---
PT Evaluation-General Medical Diagnosis Admission Date Apr 30, 2020 at 11:20 Medical Diagnosis: CVA Onset Date: Apr 28, 2020 Therapy Diagnosis Therapy Diagnosis: impaired mobility, strength, endurance, balance Height/Weight Height (Feet): 5 Height (Inches): 0.00 Weight (Pounds): 195 Precautions Precautions/Isolations: Fall Prevention, Standard Precautions Referral Physician: Norma Mays DO Reason for Referral: Evaluation/Treatment Medical History Pertinent Medical History: HTN, Hypothroidism Reviewed History: Yes Social History Home: Single Level Current Living Status: Spouse Entry Into Home: Stairs Without Railing PT Steps Into Home: 1 Prior Prior Level of Function SCALE: Activities may be completed with or without assistive devices. 5-Iyusaadieg-plpxlzb completes the activity by him/herself with no assistance from a helper. 5-Set-up or Clean-up Assistance-helper sets up or cleans up; patient completes activity. [place] assists only prior to or following the activity. 4-Supervision or Touching Assistance-helper provides verbal cues and/or touching/steadying and/or contact guard assistance as patient completes activity. Assistance may be provided throughout the activity or intermittently. 3-Partial/Moderate Assistance-helper does LESS THAN HALF the effort. [place] lift s, holds or supports trunk or limbs, but provides less than half the effort. 2-Substantial/Maximal Assistance-helper does MORE THAN HALF the effort. [place] lifts or holds trunk or limbs and provides more than half the effort. 0-Yigusajap-nypccr does ALL the effort. Patient does none of the effort to complete the activity. Or, the assistance of 2 or more helpers is required for the patient to complete the activity. If activity was not attempted, code reason: 7-Patient Refused. 9-Not Applicable-not attempted and the patient did not perform the activity before the current illness, exacerbation or injury. 10-Not Attempted due to Environmental Limitations-(lack of equipment, weather restraints, etc.). 88-Not Attempted due to Medical Conditions or Safety Concerns. Bed Mobility: 6 Transfers (B,C,W/C): 6 Gait: 6 Stairs: 6 Indoor Mobility (Ambulation): Independent Stairs: Independent PT Evaluation-Current Subjective Patient in therapy gym pre tx, agrees to PT, has no complaints of pain. Pt/Family Goals to be independent at home Objective Patient Orientation: Person, Place, Situation ROM/Strength ROM Lower Extremities WNL Strength Lower Extremities LLE (hip flexion 4/5, knee flexion 5/5, knee extension 5/5, dorsiflexion 5/5), RLE (hip flexion 3/5, knee flexion 4/5, knee extension 5/5, dorsiflexion 5/5) Neuromuscular (Tone, Coordination, Reflexes) Patient has intact peripheral vision, good tracking Sensory Vision: Wears Glasses Hearing: Functional Hand Dominance: Right Sensation Right Lower Extremit: Intact Sensation Left Lower Extremity: Intact Transfers Roll Left & Right (QC): 6 Sit to Lying (QC): 6 Lying to Sitting/Side of Bed(Q: 3 Sit to Stand (QC): 4 Chair/Qdy-qk-Sxvjo Xfer(QC): 4 Toilet Transfer (QC): 4 Car Transfer (QC): 4 Patient performs bed mobility with independence, supine to sit min assist, sit t o supine independent, sit <-> stand CGA, transfers CGA, car transfer CGA. Occasional cue for safety and hand placement. Patient seems to have mild right neglect, her right hand has less of a environmental studies professor on walker and other surfaces during functional mobility. Gait Does the Patient Walk?: Yes Mode of Locomotion: Walk Anticipated Mode of Locomotion: Walk Walk 10 feet (QC): 4 Walk 50 ft with 2 Turns(QC): 4 Walk 150 ft (QC): 88 Walking 10ft/uneven surface-QC: 4 Distance: 120' Gait Assistive Device: FWW Comments/Gait Description Patient can ambulate 120' with a rolling walker with CGA (including 50' with at least 2 turns of 90 degrees and 10' over an uneven surface). Patient has occasional difficulty advancing her right foot, tends to lean a little to the right side. Wheelchair Training Does the Pt Use a Wheelchair?: No Wheel 50 ft with 2 turns (QC): 9 Wheel 150 ft (QC): 9 Stairs #of Steps: 1 1 Step (curb) (QC): 4 4 Steps (QC): 88 12 Steps (QC): 88 Walking Assistive Device: Walker Patient can go up and down 1 step using a rolling walker with CGA, with slow detailed cues for foot placement and safety. Balance Sitting Static: Normal Sitting Dynamic: Normal Standing Static: Fair Standing Dynamic: Fair Picking up an Object (QC): 4 Assessment/Needs Patient has impaired mobility, strength, endurance, balance. Patient in chair at bedside post tx with nurse call, phone, ariana, all needs met, patient instructed to use nurse call if she needed to get up due to her impaired balance, patient said she understood and would comply. Patient has mild right neglect and leans to the right with standing and ambulation. Rehab Potential: Fair PT Short Term Goals Short Term Goals Time Frame: May 07, 2020 Roll Left & Right: 6 Sit to lyin Lying to sitting on side of be: 6 Sit to stand: 4 Chair/jqd-rg-djczr transfer: 4 Walk 10 feet: 4 Walk 50 feet with two turns: 4 Walk 150 feet: 4 PT Retirement Goals Imaging Science Professor Goals PT Retirement Goals Time Frame: May 21, 2020 Roll Left & Right (QC): 6 Sit to Lying (QC): 6 Lying-Sitting on Side/Bed(QC): 6 Sit to Stand (QC): 6 Chair/Dcn-np-Yzpef Xfer(QC): 6 Toilet Transfer (QC): 6 Car Transfer (QC): 6 Does the Patient Walk: Yes Walk 10 feet (QC): 6 Walk 50ft with 2 Turns (QC): 6 Walk 150 ft (QC): 6 Walking 10ft on Uneven Surface: 6 1 Step (curb) (QC): 4 4 Steps (QC): 4 12 Steps (QC): 88 Picking up an Object (QC): 5 Wheel 50 feet with 2 turns (QC: 9 Wheel 150 feet: 9 PT Plan Problem List Problem List: Activity Tolerance, Functional Strength, Safety, Balance, Gait, Transfer, Bed Mobility, ROM Treatment/Plan Treatment Plan: Continue Plan of Care Treatment Plan: Bed Mobility, Education, Functional Activity Vanesa, Functional Strength, Group Therapy, Gait, Safety, Therapeutic Exercise, Transfers Treatment Duration: May 21, 2020 Frequency: At least 5 of 7 days/Wk (IRF) Estimated Hrs Per Day: 1.5 hours per day Patient and/or Family Agrees t: Yes Safety Risks/Education Patient Education: Gait Training, Transfer Techniques, Steps, Correct Positioning, Safety Issues Teaching Recipient: Patient Teaching Methods: Demonstration, Discussion Response to Teaching: Reinforcement Needed Discharge Recommendations Plan Patient will perform bed mobility and transfer training, balance and endurance training, functional strengthening, stair training, gait training, and education, to improve functional mobility and independence at home. Therapy Discharge Recommendati: Home & Family Time/GCodes Time In: 1200 Time Out: 1220 Total Billed Treatment Time: 20 Total Billed Treatment 1 visit ELIZ 20' ELISABETH RODRIGUEZ PT Apr 30, 2020 14:57
--- NOTE | 2020-04-30 15:12 | Physical Therapy Daily Note ---
PT Daily Note-Current Subjective Patient in room pre tx, agrees to PT, no complaints of pain, will be co-treating with OT for part of tx for balance training, and due to poor patient mobility, strength, endurance, balance, coordinate UE and LE during activity, safety and reduce risk of falls. Appearance Patient in chair at bedside post tx with family in the room, has nurse call, phone, tray, all needs met. Mental Status Patient Orientation: Person, Place, Situation Transfers SCALE: Activities may be completed with or without assistive devices. 8-Cwqriqcvhm-znecslf completes the activity by him/herself with no assistance from a helper. 5-Set-up or Clean-up Assistance-helper sets up or cleans up; patient completes activity. [place] assists only prior to or following the activity. 4-Supervision or Touching Assistance-helper provides verbal cues and/or touching/steadying and/or contact guard assistance as patient completes activity. Assistance may be provided throughout the activity or intermittently. 3-Partial/Moderate Assistance-helper does LESS THAN HALF the effort. [place] lifts, holds or supports trunk or limbs, but provides less than half the effort. 2-Substantial/Maximal Assistance-helper does MORE THAN HALF the effort. [place] lifts or holds trunk or limbs and provides more than half the effort. 2-Cwifumlkg-xcylul does ALL the effort. Patient does none of the effort to complete the activity. Or, the assistance of 2 or more helpers is required for the patient to complete the activity. If activity was not attempted, code reason: 7-Patient Refused. 9-Not Applicable-not attempted and the patient did not perform the activity b efore the current illness, exacerbation or injury. 10-Not Attempted due to Environmental Limitations-(lack of equipment, weather restraints, etc.). 88-Not Attempted due to Medical Conditions or Safety Concerns. Sit to Stand (QC): 4 Chair/Tqk-co-Zpasm Xfer(QC): 4 cues for safety and balance Gait Training Distance: 300', 120' Walk 10 feet (QC): 4 Walk 50 ft with 2 Turns(QC): 4 Walk 150 ft (QC): 4 Gait Persons Needed: 1 Gait Assistive Device: FWW right hand occasionally slips off walker, leans to the right side, occasionally drifts to the right side Exercises Standing: Hip Abduction, Hamstring curls, Heel/toe raises, Marching, Mini squats Standing Reps: 15 LAQ alternating for 5 min NuStep Minutes: 15 NuStep Workload: 4 Neuromuscular standing balance training in parallel bars reaching for rings with one hand, switching hands, working on limits of stability Treatments OT worked on balance training, PT worked on balance training, functional strengthening, gait training, and transfers Assessment Current Status: Fair Progress Patient needs rest breaks between exercises due to fatigue PT Short Term Goals Short Term Goals Time Frame: May 07, 2020 Roll Left & Right: 6 Sit to lyin Lying to sitting on side of be: 6 Sit to stand: 4 Chair/yhn-iq-fsdrl transfer: 4 Walk 10 feet: 4 Walk 50 feet with two turns: 4 Walk 150 feet: 4 PT Media Marketing Manager Goals Shelter Goals PT Shelter Goals Time Frame: May 21, 2020 Roll Left & Right (QC): 6 Sit to Lying (QC): 6 Lying-Sitting on Side/Bed(QC): 6 Sit to Stand (QC): 6 Chair/Lhc-ep-Bvppr Xfer(QC): 6 Toilet Transfer (QC): 6 Car Transfer (QC): 6 Does the Patient Walk: Yes Walk 10 feet (QC): 6 Walk 50ft with 2 Turns (QC): 6 Walk 150 ft (QC): 6 Walking 10ft on Uneven Surface: 6 1 Step (curb) (QC): 4 4 Steps (QC): 4 12 Steps (QC): 88 Picking up an Object (QC): 5 Wheel 50 feet with 2 turns (QC: 9 Wheel 150 feet: 9 PT Plan Problem List Problem List: Activity Tolerance, Functional Strength, Safety, Balance, Gait, Transfer, Bed Mobility, ROM Treatment/Plan Treatment Plan: Continue Plan of Care Treatment Plan: Bed Mobility, Education, Functional Activity Vanesa, Functional Strength, Group Therapy, Gait, Safety, Therapeutic Exercise, Transfers Treatment Duration: May 21, 2020 Frequency: At least 5 of 7 days/Wk (IRF) Estimated Hrs Per Day: 1.5 hours per day Patient and/or Family Agrees t: Yes Safety Risks/Education Patient Education: Gait Training, Transfer Techniques, Correct Positioning, Safety Issues Teaching Recipient: Patient Teaching Methods: Demonstration, Discussion Response to Teaching: Reinforcement Needed Time/GCodes Time In: 1310 Time Out: 1420 Total Billed Treatment Time: 70 Total Billed Treatment 1 visit NM 15' EX 30' GT 25' co-treat with OT from [id number], PT tx from [id number] ELISABETH RODRIGUEZ PT Apr 30, 2020 15:12
[2020-04-30 16:00] VITALS: BP 179/102
[2020-04-30 18:41] VITALS: BP 189/106
[2020-04-30] MEDS ORDERED: cloNIDine 0.1 MG (CATAPRES) TAB PO PRN (19:15)
[2020-04-30] MEDS ORDERED: amLODIPine 5 MG (NORVASC) TAB PO NR (19:15)
[2020-04-30] MEDS ORDERED: hydrALAZINE (APRESOLINE) 25 MG TAB PO PRN (19:15)
[2020-04-30] MEDS: polyethylene glycoL POWDER 17 GM (MIRALAX) PACK PO SCH (20:44)
[2020-04-30] MEDS: FENOFIBRATE 134 MG (LOFIBRA) CAPSULE PO SCH (20:46)
[2020-04-30] MEDS: SENNA W/DOCUSATE (SENOKOT S) TABLET PO SCH (20:50)
[2020-04-30] MEDS: DOCUSATE SODIUM 100 MG (COLACE) CAP PO SCH (20:50)
[2020-04-30] MEDS ORDERED: cloNIDine 0.1 MG (CATAPRES) TAB PO SCH (21:00)
[2020-05-01 05:35] LABS: BASOPHILS % (AUTO) 0 % (0-10); EOSINOPHILS # (AUTO) 0.2 10^3/uL (0.0-0.3); EOSINOPHILS % (AUTO) 3 % (0-10); HEMATOCRIT 43 % (35-52); HEMOGLOBIN 13.7 g/dL (11.5-16.0); LYMPHOCYTES # (AUTO) 2.4 10^3/uL (1.0-4.0); LYMPHOCYTES % (AUTO) 29 % (12-44); MEAN CORPUSCULAR HEMOGLOBIN 28 pg (25-34); MEAN CORPUSCULAR HGB CONC 32 g/dL (32-36); MEAN CORPUSCULAR VOLUME 88 fL (80-99); MEAN PLATELET VOLUME 12.3 fL (9.0-12.2); MONOCYTES % (AUTO) 12 % (0-12); NEUTROPHILS # (AUTO) 4.7 10^3/uL (1.8-7.8); NEUTROPHILS % (AUTO) 56 % (42-75); PLATELET COUNT 217 10^3/uL (130-400); WHITE BLOOD COUNT 8.4 10^3/uL (4.3-11.0)
[2020-05-01] MEDS: LEVOTHYROXINE 112 MCG (LEVOTHROID) TAB PO SCH (05:39)
[2020-05-01 05:42] LABS: ALBUMIN 3.6 GM/DL (3.2-4.5); POTASSIUM 3.9 MMOL/L (3.6-5.0)
[2020-05-01 05:43] LABS: CALCIUM 8.9 MG/DL (8.5-10.1)
[2020-05-01 05:45] LABS: TOTAL PROTEIN 6.2 GM/DL (6.4-8.2)
[2020-05-01 05:46] LABS: BILIRUBIN,TOTAL 0.3 MG/DL (0.1-1.0)
[2020-05-01 05:48] LABS: CREATININE SERUM 1.02 MG/DL (0.60-1.30)
[2020-05-01 05:55] VITALS: BP 156/79
[2020-05-01 08:00] VITALS: BP 158/99
[2020-05-01] MEDS: polyethylene glycoL POWDER 17 GM (MIRALAX) PACK PO SCH ×2 (09:00→20:25)
[2020-05-01] MEDS: SENNA W/DOCUSATE (SENOKOT S) TABLET PO SCH ×2 (09:00→20:25)
[2020-05-01] MEDS: DOCUSATE SODIUM 100 MG (COLACE) CAP PO SCH ×2 (09:00→20:25)
--- NOTE | 2020-05-01 09:08 | Occupational Ther Daily Note ---
OT Current Status-Daily Note Subjective Pt in bathroom upon entry. BM completed and self cleaning with IND. Pt AxO, denies pain, states feels better (energy/ movement) than yesterday. Pt states she desires to d/c as soon as she safely can. Pt and OT discuss home environment and home modifications this date and needs prior to d/c. Mental Status/Objective Patient Orientation: Person, Place, Situation, Normal For Age Attachments: Telemetry ADL-Treatment Therapy Code Descriptions/Definitions Functional [place] Measure: 0=Not Assessed/NA 4=Minimal Assistance 1=Total Assistance 5=Supervision or Setup 2=Maximal Assistance 6=Modified [place] 3=Moderate Assistance 7=Complete IndependenceSCALE: Activities may be completed with or without assistive devices. 8-[place]-ctdfhqu completes the activity by him/herself with no assistance from a helper. 5-Set-up or Clean-up Assistance-helper sets up or cleans up; patient completes activity. [place] assists only prior to or following the activity. 4-Supervision or Touching Assistance-helper provides verbal cues and/or touching/steadying and/or contact guard assistance as patient completes activity. Assistance may be provided throughout the activity or intermittently. 3-Partial/Moderate Assistance-helper does LESS THAN HALF the effort. [place] lifts, holds or supports trunk or limbs, but provides less than half the effort. 2-Substantial/Maximal Assistance-helper does MORE THAN HALF the effort. [place] lifts or holds trunk or limbs and provides more than half the effort. 8-Muirtimnl-vedgho does ALL the effort. Patient does none of the effort to complete the activity. Or, the assistance of 2 or more helpers is required for the patient to complete the activity. If activity was not attempted, code reason: 7-Patient Refused. 9-Not Applicable-not attempted and the patient did not perform the activity before the current illness, exacerbation or injury. 10-Not Attempted due to Environmental Limitations-(lack of equipment, weather restraints, etc.). 88-Not Attempted due to Medical Conditions or Safety Concerns. Eating (QC): 6 (states ate breakfast with use of R UE only. ) Shower/Bathe Self (QC): 7 Upper Body Dressing (QC): 5 (s/u) Lower Body Dressing (QC): 4 (completes threading with IND, sit to stand and pulls over hips with SBA> ) On/Off Footwear: 4 (SUP) Toileting Hygiene (QC): 6 (IND in sit on standard toilet. ) Toilet Transfer (QC): 4 (SBA, use of walker. ) Other Treatment Pt completes toileting and hand washing with SBA. Use of walker for transfer, increased stabilization noted this date/ less RLE dragging. Pt ambulates to chair, dresses as outlined. Pt and OT discuss home environment (states has garden tub, tall (ledge ~5" taller than our standard tub/ shower ledge), pt is educated on use of tub transfer bench vs shower chair. Recommendations of grab bars in tub/ shower at first. Pt then completes ambulation to laundry room, educated on use of RUE support on washer and walker positioning during task. SUP during this. Pt ambulates to shower room, completes tub transfer bench with cues and CGA (increased difficulty bringing LEs over ledge, increased difficulty noted during 5" increase at home). Pt educated on in/out with help/ use of sc inside shower and gbs. Completes this with CGA and cues in/out with clearance of ~1/2" ledge. Pt states limited room in walk in shower, however, OT/ pt discuss that this may be the safest/ most appropriate option with asssist, sc placed, and gb outside of shower. Pt agrees. Plans to shower in stance during next shower with SBA. Pt completes ambulation to gym, CGA. Completes 15 min min-mod resistance arm bike ex with intermittent R hand slipping from handle. Pt educated on reaching/ dynamic balance task within kitchen, minimal cues for stabilizing while reaching at counter level/ opens fridge to reach different shelving. Pt is educated on use of Tupperware and walker basket/ bag to bring food items to table safely. Pt completes ~4-5 min of this ambulation/ dynamic balance task, then has slight LOB, requiring rest break. Pt sits in chair, states fatigue was "all of a sudden," pt educated on pt's standing tolerance and insurance that pt takes rest break/ checks energy level every 5 min or so. Pt rests, returns to room. Dynamic IADL/ bed making task completed with CGA on one side of bed. no LOB. Pt returns to chair, educated on red theraputty ex, all needs met, call light in reach. Education OT Patient Education: Correct positioning, Energy conservation, Exercise program, Home exercise program, Modified ADL techniques, Progress toward Goal/Update tx plan, Purpose of tx/functional activities, Reviewed precautions, Rehab process, Safety issues, Transfer techniques, Use of adapted equipment Teaching Recipient: Patient Teaching Methods: Demonstration, Discussion Response to Teaching: Verbalize Understanding, Return Demonstration, Reinforcement Needed OT Short Term Goals Short Term Goals Toileting hygiene: 5 Shower/bathe self: 5 Upper body dressin Lower body dressin Putting on/taking off footwear: 4 OT Care Home Goals Care Home Goals Time Frame: May 14, 2020 Eating (QC): 6 Oral Hygiene (QC): 6 Toileting Hygiene (QC): 6 Shower/Bathe Self (QC): 6 Upper Body Dressing (QC): 6 Lower Body Dressing (QC): 6 On/Off Footwear (QC): 6 Additional Goals: 1-Demonstrate ADL Tasks, 2-Verbalize Understanding, 3- ImproveStrength/Vanesa 1=Demonstrate adherence to instructed precautions during ADL tasks. 2=Patient will verbalize/demonstrate understanding of assistive devices/modifications for ADL. 3=Patient will improve strength/tolerance for activity to enable patient to perform ADL's. OT Education/Plan Problem List/Assessment Assessment: Decreased Activ Tolerance, Decreased UE Strength, Dependent Transfers, Impaired Funct Balance, Impaired I ADL's, Impaired Self-Care Skills Discharge Recommendations Plan/Recommendations: Continue POC Therapy Discharge Recommendati: Home & Family Treatment Plan/Plan of Care Treatment,Training & Education: Yes Patient would benefit from OT for education, treatment and training to promote independence in ADL's, mobility, safety and/or upper extremity function for ADL's. Plan of Care: ADL Retraining, Caregiver Training, Concurrent Therapy, Functional Mobility, Group Exercise/Act as Ind, Orthotic Fitting/Training, UE Funct Exercise/Act, UE Neuromus Re-Ed/Coord Treatment Duration: May 14, 2020 Frequency: At least 5 of 7 days/Wk (IRF) Estimated Hrs Per Day: 1.5 hours per day Agreement: Yes Rehab Potential: Fair Time/GCodes Start Time: 08:00 Stop Time: 09:30 Total Time Billed (hr/min): 90 Billed Treatment Time 1, ADL 3 (45), EX 3 (45)= 90 KANG ODONNELL OTR May 01, 2020 09:08
--- NOTE | 2020-05-01 09:23 | PM&R Progress Note ---
Subjective HPI/CC On Admission Date Seen by Provider: May 01, 2020 Time Seen by Provider: 09:30 Subjective/Events-last exam 05/01/20: Pt doing pretty well BP 158/99 On telemetry Voiding okay after catheter removed Right arm is improved, was able to eat breakfast with her arm and hand Cardiology appreciated Review of Systems General: Fatigue, Malaise Neurological: Weakness, Incoordination Objective Exam Vital Signs Vital Signs Date Time Temp Pulse Resp B/P (MAP) Pulse Ox O2 Delivery O2 Flow Rate FiO2 05/02/20 01:00 88 05/01/20 20:00 94 Room Air 05/01/20 17:59 36.6 18 156/94 (114) Capillary Refill : General Appearance: No Apparent Distress, WD/WN, Chronically ill, Obese HEENT: PERRL/EOMI, Normal ENT Inspection, Pharynx Normal Neck: Full Range of Motion, Normal Inspection, Non Tender, Supple, Carotid Bruit Respiratory: Chest Non Tender, Lungs Clear, Normal Breath Sounds, No Accessory Muscle Use, No Respiratory Distress Cardiovascular: Regular Rate, Rhythm, No Edema, No Gallop, No JVD, No Murmur, Normal Peripheral Pulses Gastrointestinal: Normal Bowel Sounds, No Organomegaly, No Pulsatile Mass, Non Tender, Soft Back: Normal Inspection, No CVA Tenderness, No Vertebral Tenderness Extremity: Normal Capillary Refill, Normal Inspection, Normal Range of Motion, Non Tender, No Calf Tenderness, No Pedal Edema Neurologic/Psychiatric: Alert, Oriented x3, Normal Mood/Affect, Abnormal Gait, Motor Weakness (right upper extremity 3/5, right lower extremity 4/5) Skin: Normal Color, Warm/Dry Lymphatic: No Adenopathy Results/Procedures Lab Patient resulted labs reviewed. FIM Transfers Therapy Code Descriptions/Definitions Functional [place] Measure: 0=Not Assessed/NA 4=Minimal Assistance 1=Total Assistance 5=Supervision or Setup 2=Maximal Assistance 6=Modified [place] 3=Moderate Assistance 7=Complete IndependenceSCALE: Activities may be completed with or without assistive devices. 1-Mkrdkjkbyo-wwqktww completes the activity by him/herself with no assistance from a helper. 5-Set-up or Clean-up Assistance-helper sets up or cleans up; patient completes activity. [place] assists only prior to or following the activity. 4-Supervision or Touching Assistance-helper provides verbal cues and/or touching/steadying and/or contact guard assistance as patient completes activity. Assistance may be provided throughout the activity or intermittently. 3-Partial/Moderate Assistance-helper does LESS THAN HALF the effort. [place] lifts, holds or supports trunk or limbs, but provides less than half the effort. 2-Substantial/Maximal Assistance-helper does MORE THAN HALF the effort. [place] lifts or holds trunk or limbs and provides more than half the effort. 6-Tqypxqygm-dcjhqy does ALL the effort. Patient does none of the effort to complete the activity. Or, the assistance of 2 or more helpers is required for the patient to complete the activity. If activity was not attempted, code reason: 7-Patient Refused. 9-Not Applicable-not attempted and the patient did not perform the activity before the current illness, exacerbation or injury. 10-Not Attempted due to Environmental Limitations-(lack of equipment, weather restraints, etc.). 88-Not Attempted due to Medical Conditions or Safety Concerns. Roll Left to Right (QC): 6 Sit to Lying (QC): 6 Sit to Stand (QC): 4 Chair/Jme-td-Kaqlb Xfer(QC): 4 Car Transfer (QC): 4 Gait Training Does the Patient Walk?: Yes Distance: 300', 120' Walk 10 feet (QC): 4 Walk 50 ft with 2 Turns(QC): 4 Walk 150 ft (QC): 4 Walking 10ft/uneven surface-QC: 4 Gait Persons Needed: 1 Gait Assistive Device: FWW Wheelchair Training Does the Pt Use a Wheelchair?: No Wheel 50 ft with 2 turns (QC): 9 Wheel 150 ft (QC): 9 Stair Training #of Steps: 1 1 Step (curb) (QC): 4 4 Steps (QC): 88 12 Steps (QC): 88 Balance Picking up an Object (QC): 4 ADL-Treatment Eating (QC): 6 (states ate breakfast with use of R UE only. ) Oral Hygiene (QC): 6 (seated, per clinical judgment.) Shower/Bathe Self (QC): 7 Upper Body Dressing (QC): 5 (s/u) Lower Body Dressing (QC): 4 (completes threading with IND, sit to stand and pulls over hips with SBA> ) On/Off Footwear (QC): 4 (SUP) Toileting Hygiene (QC): 6 (IND in sit on standard toilet. ) Toilet Transfer (QC): 4 (SBA, use of walker. ) Assessment/Plan Assessment and Plan Assess & Plan/Chief Complaint Assessment: CVA with right sided weakness HTN malignant type Hypothyroidism HLP Obesity Plan: IRF protocol Monitor BP Fall risk 05/01/20: Progressing rapidly Doing well Monitor BP Tely (1) Acute CVA (cerebrovascular accident) Status: Acute (2) Hypertension Status: Acute SUSI BAR DO May 01, 2020 09:23
--- NOTE | 2020-05-01 09:24 | Individualized Plan of Care ---
Individualized Plan of Care Rehab Nursing IPOC Order Admission Date Apr 30, 2020 at 11:20 Current Orders Orders Admission Order(Inpt,Obs,Sdc) (04/30/20 10:55) Vital Signs: Per Unit Policy ( 16,00 (04/30/20 10:55) Yosvany Delong (04/30/20 10:55) Sequential Compression Device Q4H (04/30/20 10:55) Video Game Maker-Inpt Rehab Con (04/30/20 10:55) Rehab Nursing Orders-Ipoc (04/30/20 10:55) Physical Therapy Rehab Orders (04/30/20 10:55) Occupational Therapy Rehab Ord (04/30/20 10:55) Speech Therapy Rehab Orders (04/30/20 10:55) Cbc With Automated Diff (05/01/20 06:00) Comprehensive Metabolic Panel (05/01/20 06:00) Intake & Output 06,14,22 (04/30/20 10:55) Precautions (Aru) (04/30/20 10:55) Weekly Weight WEEK (04/30/20 10:55) Rehab-Intensity Of Therapy (04/30/20 10:55) Initiate Admission Nursing Pro .admission (04/30/20 10:55) Acetaminophen Tablet (Tylenol Tablet) (04/30/20 11:00) Alprazolam Tablet (Xanax Tablet) (04/30/20 11:00) Calcium Carbonate Chew Tablet (Antacid C (04/30/20 11:00) Diphenhydramine Tablet (Benadryl Tablet) (04/30/20 11:00) Docusate Sodium Capsule (Colace Capsule) (04/30/20 21:00) Docusate Sodium Capsule (Colace Capsule) (04/30/20 11:00) Bisacodyl Suppository (Dulcolax Supposit (04/30/20 11:00) Lactulose Oral Solution (Enulose Oral So (04/30/20 11:00) Na Phos/Na Biphos Enema (Fleet Enema Idris (04/30/20 11:00) Guaifenesin/Codeine Syrup (Robitussin Ac (04/30/20 11:00) Loperamide Tablet (Imodium Tablet) (04/30/20 11:00) Melatonin Tablet (Melatonin Tablet) (04/30/20 11:00) Polyethylene Glycol Powder Pkt (Miralax (04/30/20 21:00) Ondansetron Oral Dissolve Tab (Zofran (04/30/20 11:00) Senna S Tablet (Senokot S Tablet) (04/30/20 21:00) Code/Resuscitation (04/30/20 10:55) Initiate Admission Nursing Pro .admission (04/30/20 10:55) Telemetry (04/30/20 10:55) Telemetry Nursing Assessment ( (04/30/20 10:55) Admission Arrival Bed Request (04/30/20 11:37) Acetaminophen Tablet/Caplet (Tylenol T (04/30/20 12:00) General/Regular (04/30/20 Lunch) Patient Visit (04/30/20 ) Pt Eval Moderate Complexity (04/30/20 ) Ex Neuromuscular, Ea 15 Min (04/30/20 ) Exercise Therap, Ea 15 Min (04/30/20 ) Gait Training, Ea 15 Min (04/30/20 ) Code/Resuscitation (04/30/20 19:05) Sequential Compression Device Q4H (04/30/20 19:05) Telemetry (04/30/20 19:05) General/Regular (04/30/20 Dinner) Acetaminophen Tablet/Caplet (Tylenol T (04/30/20 19:15) Aspirin Tablet (Aspirin Tablet) (05/01/20 09:00) Atorvastatin Tablet (Lipitor) (04/30/20 21:00) Fenofibrate,Micronized Capsule (Lofibra (04/30/20 21:00) Levothyroxine Tablet (Synthroid Tablet) (05/01/20 06:30) Loratadine Tablet (Claritin Tablet) (05/01/20 09:00) Clonidine Tablet (Catapres Tablet) (04/30/20 21:00) Lisinopril Tablet (Zestril Tablet) (05/01/20 09:00) Metoprolol Succinate (Xl) Tab (Toprol Xl (05/01/20 09:00) Consult Cardiology (04/30/20 19:05) Telemetry Nursing Assessment ( (04/30/20 19:05) Amlodipine Tablet (Norvasc Tablet) (04/30/20 19:15) Amlodipine Tablet (Norvasc Tablet) (05/01/20 09:00) Clonidine Tablet (Catapres Tablet) (04/30/20 19:15) Hydralazine Tablet (Apresoline Tablet) (04/30/20 19:15) Cholecalciferol Capsule/Tablet (Vitamin (05/04/20 09:00) Metoprolol Succinate (Xl) Tab (Toprol Xl (05/02/20 09:00) Metoprolol Succinate (Xl) Tab (Toprol Xl (05/01/20 11:30) Patient Visit (05/01/20 ) Gait Training, Ea 15 Min (05/01/20 ) Exercise Therap, Ea 15 Min (05/01/20 ) Functional Activities, Ea 15 (05/01/20 ) Patient Visit (05/01/20 ) Speech Sound Lang Comp (05/01/20 ) Sodium Chloride Flush (Catheter Flush Sy (05/01/20 16:45) Sodium Chloride Flush (Catheter Flush Sy (05/01/20 22:00) Rehab Nursing Orders: Ongoing Assess. of Function Status, Disease Management & Educaiton, Fall Prevention, Safety Management Intensity of Therapy to be met Patient to be seen: Min.3h per day/5 of 7d PT IPOC Problem List: Activity Tolerance, Functional Strength, Safety, Balance, Gait, Transfer, Bed Mobility, ROM Treatment Plan: Continue Plan of Care Bed Mobility, Education, Functional Activity Vanesa, Functional Strength, Group Therapy, Gait, Safety, Therapeutic Exercise, Transfers Treatment Duration: May 21, 2020 Frequency: At least 5 of 7 days/Wk (IRF) Estimated Hrs Per Day: 1.5 hours per day OT IPOC Problems: Decreased Safety Aware, Impaired Coordination, Impaired I ADL's, Impaired Self-Care Skills OT Treatment, Training and Edu: Yes Plan of Care: ADL Retraining, Caregiver Training, Concurrent Therapy, Functional Mobility, Group Exercise/Act as Ind, Orthotic Fitting/Training, UE Funct Exercise/Act, UE Neuromus Re-Ed/Coord Treatment Duration: May 14, 2020 Frequency: At least 5 of 7 days/Wk (IRF) Estimated Hrs Per Day: 1.[address] IPOC Speech Therapy Treatment Plan: Discontinue ST Treatment Duration: May 01, 2020 Frequency: Modified Program (IRF) Estimated Hrs Per Day: Other Video Game Maker/Case Mgmt Video Game Maker/Case Managemen: Discharge Planning Dietitian/Patient Case Coordinator Dietitian/Patient Case Coordinator to monitor nutritional status and make changes and/or recommendations as needed and work with speech pathology on dietary upgrades as the occur. Physician IPOC Medical Issues being managed closely and that require the 24 hour availability of a physician: Recent CVA from HTN urgency will require close monitoring for recurrent expansion of CVA Medical Issues: Falls Precautions Brief Synthesis of Preadmission Screen, Post-Admission Evaluation, and Therapy Evaluations: PT OT will focus on regaining function and increasing ambulation and ADL independence Medical Prognosis: Good Anticipated Length of Stay: 7 days SUSI BAR DO May 01, 2020 09:24
[2020-05-01] MEDS: lisINopril 40 MG (PRINIVIL) TABLET PO SCH (11:13)
[2020-05-01] MEDS: ASPIRIN 325 MG (5 GR) TABLET PO SCH (11:13)
[2020-05-01] MEDS: LORATADINE (CLARITIN) 10 MG TAB PO SCH (11:13)
[2020-05-01] MEDS: amLODIPine 5 MG (NORVASC) TAB PO SCH (11:14)
--- NOTE | 2020-05-01 11:25 | ST Cognitive Linguistic Eval ---
Speech Evaluation-General Medical Diagnosis CVA Onset Date: Apr 28, 2020 Therapy Diagnosis Therapy Diagnosis: Cognitive-communication Precautions Precautions/Isolations: Fall Prevention, Standard Precautions Referral Referring Physician: Dr. Mays Medical History Pertinent Medical History: HTN, Hypothroidism Reviewed History: Yes Social History Current Living Status: Spouse Speech PLF-Current Status Prior Level of Function Patient lived at home with her where she was independent for her daily needs. Subjective Patient was pleasant and cooperative with the cognitive assessment. Language Eval: Auditory Comprehends Simple Yes/No Ques: Functional Indent/Objects Multiple Ureña: Functional Ident/Pics in Multiple Ureña: Functional Follows 1-Step Commands: Functional Follows Complex Directions: Functional Follows General Conversations: Functional Language Eval: Verbal Language Completes Spontaneous Greeting: Functional Produces Auto, Serial Info: Functional Imitates Simple Words/Phrases: Functional Word Finding: Functional Requests Basic Needs: Functional States Basic Personal Info: Functional Expresses Complex Ideas: Functional Objective Cognitive Domain Attention: WNL Memory: WNL Problem Solving: Functional Executive Functions: WNL Visuospatial Skills: WNL Composite Severity Rating: WNL Clock Drawing Severity Rating: WNL Objective Formal/Standardized Tests [facility] Status ([facility]) Results 29/30, within normal range of function Oral Motor/Speech Production Within normal limits Impression The patient is a 69 y/o female who was admitted to the ARU s/p CVA. Patient's speech and cognitive function are WNL. The patient was given the SLUMS with a score of 29/30 obtained. This score is within normal range of function and does not indicate further need for ST. Speech Patient Assess Expression of Ideas/Wants: Expression (4) Understanding Verbal Content: Understands (4) Brief Interview-Mental Status: Yes Repetition of Three Words: Three (3) Temporal Orientation: Year: Correct (3) Temporal Orientation: Month: Accurate within 5 days(2) Temporal Orientation: Day: Correct (1) Recall : Wear to say "Sock": Yes, no cue required (2) Recall : Color: Yes, no cue required (2) Recall : Bed: Yes, no cue required (2) Memory/Recall Ability: Current season, Location of own room, Staff names and faces, That he or she is in a hsp/hsp unit Speech-Plan Patient/Family Goals Patient/Family Goals: Patient plans on discharging to her home where she lives with her . Treatment Plan Speech Therapy Treatment Plan: Discontinue ST Treatment Duration: May 01, 2020 Frequency: 1 time per week Estimated Hrs Per Day: .25 hour per day Rehab Potential: Fair Barriers to Learning: None identified Pt/Family Agrees to Plan: Yes Safety Risks/Education Teaching Recipient: Patient Teaching Methods: Discussion Response to Teaching: Verbalize Understanding Education Topics Provided: Safety within her room and communication of wants/needs Time Speech Therapy Time In: 11:00 Speech Therapy Time Out: 11:15 Total Billed Time: 15 Billed Treatment Time 1, SPSNDCOMP ANTHONY Omer May 01, 2020 11:25
--- NOTE | 2020-05-01 11:29 | Progress Note - Cardiology ---
Cardiology SOAP Progress Note Objective: I&O/Vital Signs 05/02/20 05/02/20 05/02/20 05/02/20 01:00 06:05 07:43 09:17 Temp 36.3 Pulse 88 88 100 Resp 20 B/P (MAP) 156/97 (116) Pulse Ox 97 94 O2 Delivery Room Air Room Air 05/02/20 00:00 Intake Total 1520 ml Balance 1520 ml Weight (Pounds): 195 Weight (Calculated Kilograms): 88.144498 Constitutional: AAO x 3, well-developed, well-nourished Cardiovascular: regular rate-rhythm Gastrointestional: No tender; soft, round, audible bowel sounds Extremities: no lower extremity edema bilateral Neurologic/Psychiatric: other (RUE and RLE 4/5) Skin: No rash on exposed areas, No ulcerations on exposed areas Results/Procedures: Labs Laboratory Tests 05/01/20 11:00: Glucometer 103 A/P: Assessment: 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
--- NOTE | 2020-05-01 12:12 | Physical Therapy Daily Note ---
PT Daily Note-Current Subjective Pt sitting in recliner upon arrival. Pt agrees to PT and asks to use BR. Pain Location: No Pain Reported Mental Status Patient Orientation: Person, Place, Situation Transfers SCALE: Activities may be completed with or without assistive devices. 6-Klchnxprng-uszscbd completes the activity by him/herself with no assistance from a helper. 5-Set-up or Clean-up Assistance-helper sets up or cleans up; patient completes activity. [place] assists only prior to or following the activity. 4-Supervision or Touching Assistance-helper provides verbal cues and/or touching/steadying and/or contact guard assistance as patient completes activity. Assistance may be provided throughout the activity or intermittently. 3-Partial/Moderate Assistance-helper does LESS THAN HALF the effort. [place] lifts, holds or supports trunk or limbs, but provides less than half the effort. 2-Substantial/Maximal Assistance-helper does MORE THAN HALF the effort. [place] lifts or holds trunk or limbs and provides more than half the effort. 2-Rpbkcvquq-gnjzmp does ALL the effort. Patient does none of the effort to complete the activity. Or, the assistance of 2 or more helpers is required for the patient to complete the activity. If activity was not attempted, code reason: 7-Patient Refused. 9-Not Applicable-not attempted and the patient did not perform the activity before the current illness, exacerbation or injury. 10-Not Attempted due to Environmental Limitations-(lack of equipment, weather restraints, etc.). 88-Not Attempted due to Medical Conditions or Safety Concerns. Sit to Stand (QC): 5 Toilet Transfer (QC): 5 Weight Bearing Full Weight Bearing Full Weight Bearing Gait Training Does the Patient Walk?: Yes Distance: 125' x2 Walk 10 feet (QC): 5 Walk 50 ft with 2 Turns(QC): 5 Walk 150 ft (QC): 5 Gait Persons Needed: 1 Gait Assistive Device: FWW Exercises Seated Therapy Exercises: Ankle pumps, Long arc quads, Hip flexion, Kicking activity Seated Reps: 15 Standing: Hamstring curls, Marching Standing Reps: 15 NuStep Minutes: 15 NuStep Workload: 4 Treatments TF to standing and uses BR. Pt amb. in hallway then uses NuStep for 15m at WL 4. Pt completes Standing EX at //bars then Seated Ex in chair before returning to room to rest in chair. All needs met, call light in hand. Assessment Current Status: Good Progress Pt betito. tx well. PT Short Term Goals Short Term Goals Time Frame: May 07, 2020 Roll Left & Right: 6 Sit to lyin Lying to sitting on side of be: 6 Sit to stand: 4 Chair/bry-qm-fqkki transfer: 4 Walk 10 feet: 4 Walk 50 feet with two turns: 4 Walk 150 feet: 4 PT Fci Goals Smoking Tobacco Cutter Operator Goals PT Smoking Tobacco Cutter Operator Goals Time Frame: May 21, 2020 Roll Left & Right (QC): 6 Sit to Lying (QC): 6 Lying-Sitting on Side/Bed(QC): 6 Sit to Stand (QC): 6 Chair/Lkg-ld-Hufhp Xfer(QC): 6 Toilet Transfer (QC): 6 Car Transfer (QC): 6 Does the Patient Walk: Yes Walk 10 feet (QC): 6 Walk 50ft with 2 Turns (QC): 6 Walk 150 ft (QC): 6 Walking 10ft on Uneven Surface: 6 1 Step (curb) (QC): 4 4 Steps (QC): 4 12 Steps (QC): 88 Picking up an Object (QC): 5 Wheel 50 feet with 2 turns (QC: 9 Wheel 150 feet: 9 PT Plan Problem List Problem List: Activity Tolerance Treatment/Plan Treatment Plan: Continue Plan of Care Treatment Plan: Bed Mobility, Education, Functional Activity Vanesa, Functional Strength, Group Therapy, Gait, Safety, Therapeutic Exercise, Transfers Treatment Duration: May 21, 2020 Frequency: At least 5 of 7 days/Wk (IRF) Estimated Hrs Per Day: 1.5 hours per day Patient and/or Family Agrees t: Yes Safety Risks/Education Patient Education: Gait Training, Transfer Techniques, Correct Positioning, Safety Issues Teaching Recipient: Patient Teaching Methods: Discussion Response to Teaching: Verbalize Understanding Time/GCodes Time In: 1000 Time Out: 1100 Total Billed Treatment Time: 60 Total Billed Treatment 1, GT (15m), EX x2 (30m) & FA (15m) IVIS DUPREE PERFORMANCE ENGINEER May 01, 2020 12:12
--- NOTE | 2020-05-01 14:04 | Physical Therapy Daily Note ---
PT Daily Note-Current Subjective Pt sitting in chair visiting with SP upon arrival. Pt agrees to PT. Pain Location: No Pain Reported Mental Status Patient Orientation: Person, Place, Situation Transfers SCALE: Activities may be completed with or without assistive devices. 1-Udhheyelus-wprxbgc completes the activity by him/herself with no assistance from a helper. 5-Set-up or Clean-up Assistance-helper sets up or cleans up; patient completes activity. [place] assists only prior to or following the activity. 4-Supervision or Touching Assistance-helper provides verbal cues and/or touching/steadying and/or contact guard assistance as patient completes activity. Assistance may be provided throughout the activity or intermittently. 3-Partial/Moderate Assistance-helper does LESS THAN HALF the effort. [place] lifts, holds or supports trunk or limbs, but provides less than half the effort. 2-Substantial/Maximal Assistance-helper does MORE THAN HALF the effort. [place] lifts or holds trunk or limbs and provides more than half the effort. 1-Vcqjsjcor-kfzccu does ALL the effort. Patient does none of the effort to c omplete the activity. Or, the assistance of 2 or more helpers is required for the patient to complete the activity. If activity was not attempted, code reason: 7-Patient Refused. 9-Not Applicable-not attempted and the patient did not perform the activity before the current illness, exacerbation or injury. 10-Not Attempted due to Environmental Limitations-(lack of equipment, weather restraints, etc.). 88-Not Attempted due to Medical Conditions or Safety Concerns. Sit to Stand (QC): 5 Toilet Transfer (QC): 5 Weight Bearing Full Weight Bearing Full Weight Bearing Gait Training Does the Patient Walk?: Yes Distance: 250' Walk 10 feet (QC): 5 Walk 50 ft with 2 Turns(QC): 5 Walk 150 ft (QC): 5 Gait Persons Needed: 1 Treatments TF to standing then uses BR. Pt amb. in hallway before returning to room to rest. All needs met, call light in hand. Assessment Current Status: Good Progress Pt fatigues, needing a couple short standing RB but recovers quickly. PT Short Term Goals Short Term Goals Time Frame: May 07, 2020 Roll Left & Right: 6 Sit to lyin Lying to sitting on side of be: 6 Sit to stand: 4 Chair/adj-lr-exxon transfer: 4 Walk 10 feet: 4 Walk 50 feet with two turns: 4 Walk 150 feet: 4 PT Senior Living Goals Senior Living Goals PT Senior Living Goals Time Frame: May 21, 2020 Roll Left & Right (QC): 6 Sit to Lying (QC): 6 Lying-Sitting on Side/Bed(QC): 6 Sit to Stand (QC): 6 Chair/Rrj-yj-Mufia Xfer(QC): 6 Toilet Transfer (QC): 6 Car Transfer (QC): 6 Does the Patient Walk: Yes Walk 10 feet (QC): 6 Walk 50ft with 2 Turns (QC): 6 Walk 150 ft (QC): 6 Walking 10ft on Uneven Surface: 6 1 Step (curb) (QC): 4 4 Steps (QC): 4 12 Steps (QC): 88 Picking up an Object (QC): 5 Wheel 50 feet with 2 turns (QC: 9 Wheel 150 feet: 9 PT Plan Problem List Problem List: Activity Tolerance Treatment/Plan Treatment Plan: Continue Plan of Care Treatment Plan: Bed Mobility, Education, Functional Activity Vanesa, Functional Strength, Group Therapy, Gait, Safety, Therapeutic Exercise, Transfers Treatment Duration: May 21, 2020 Frequency: At least 5 of 7 days/Wk (IRF) Estimated Hrs Per Day: 1.5 hours per day Patient and/or Family Agrees t: Yes Safety Risks/Education Patient Education: Gait Training, Correct Positioning, Safety Issues Teaching Recipient: Patient Teaching Methods: Discussion Response to Teaching: Verbalize Understanding Time/GCodes Time In: 1330 Time Out: 1400 Total Billed Treatment Time: 30 Total Billed Treatment 1, FA (10m) & GT (20m) IVIS DUPREE PRICER BAGGER May 01, 2020 14:04
--- NOTE | 2020-05-01 14:09 | Physical Therapy Daily Note ---
PT Daily Note-Current Subjective Pt sitting in recliner upon arrival. Pt agrees to PT/OT co-treat to test for whether pt is capable of Ad chelsea in room. Transfers SCALE: Activities may be completed with or without assistive devices. 9-Rtbbrldxlh-ocjicuh completes the activity by him/herself with no assistance from a helper. 5-Set-up or Clean-up Assistance-helper sets up or cleans up; patient completes activity. [place] assists only prior to or following the activity. 4-Supervision or Touching Assistance-helper provides verbal cues and/or touching/steadying and/or contact guard assistance as patient completes activity. Assistance may be provided throughout the activity or intermittently. 3-Partial/Moderate Assistance-helper does LESS THAN HALF the effort. [place] lifts, holds or supports trunk or limbs, but provides less than half the effort. 2-Substantial/Maximal Assistance-helper does MORE THAN HALF the effort. [place] lifts or holds trunk or limbs and provides more than half the effort. 6-Vndkbneam-prjlvl does ALL the effort. Patient does none of the effort to complete the activity. Or, the assistance of 2 or more helpers is required for the patient to complete the activity. If activity was not attempted, code reason: 7-Patient Refused. 9-Not Applicable-not attempted and the patient did not perform the activity before the current illness, exacerbation or injury. 10-Not Attempted due to Environmental Limitations-(lack of equipment, weather restraints, etc.). 88-Not Attempted due to Medical Conditions or Safety Concerns. Weight Bearing Full Weight Bearing Full Weight Bearing PT Short Term Goals Short Term Goals Time Frame: May 07, 2020 Roll Left & Right: 6 Sit to lyin Lying to sitting on side of be: 6 Sit to stand: 4 Chair/bqd-bh-agvqm transfer: 4 Walk 10 feet: 4 Walk 50 feet with two turns: 4 Walk 150 feet: 4 PT Fish Boning Machine Feeder Goals Fish Boning Machine Feeder Goals PT Fish Boning Machine Feeder Goals Time Frame: May 21, 2020 Roll Left & Right (QC): 6 Sit to Lying (QC): 6 Lying-Sitting on Side/Bed(QC): 6 Sit to Stand (QC): 6 Chair/Niv-re-Dlkbz Xfer(QC): 6 Toilet Transfer (QC): 6 Car Transfer (QC): 6 Does the Patient Walk: Yes Walk 10 feet (QC): 6 Walk 50ft with 2 Turns (QC): 6 Walk 150 ft (QC): 6 Walking 10ft on Uneven Surface: 6 1 Step (curb) (QC): 4 4 Steps (QC): 4 12 Steps (QC): 88 Picking up an Object (QC): 5 Wheel 50 feet with 2 turns (QC: 9 Wheel 150 feet: 9 PT Plan Treatment/Plan Treatment Plan: Bed Mobility, Education, Functional Activity Vanesa, Functional Strength, Group Therapy, Gait, Safety, Therapeutic Exercise, Transfers Treatment Duration: May 21, 2020 Frequency: At least 5 of 7 days/Wk (IRF) Estimated Hrs Per Day: 1.5 hours per day Patient and/or Family Agrees t: Yes IVIS DUPREE PTA May 01, 2020 14:09
[2020-05-01] MEDS ORDERED: CATHETER FLUSH 10 ML SYR IV PRN (16:45)
[2020-05-01 17:59] VITALS: BP 156/94
--- NOTE | 2020-05-01 18:16 | Progress Note - Cardiology ---
Cardiology SOAP Progress Note Subjective: Gen malaise R-sided weakness No cp or palp or syncope or shortness of breath at rest No swelling No n/v/d Objective: I&O/Vital Signs 05/01/20 05/01/20 05/01/20 05/01/20 06:30 08:00 09:00 12:28 Pulse 93 95 101 B/P (MAP) 158/99 (118) O2 Delivery Room Air 05/01/20 17:59 Temp 36.6 Pulse 84 Resp 18 B/P (MAP) 156/94 (114) Pulse Ox 94 O2 Delivery Room Air 05/01/20 00:00 Intake Total 600 ml Output Total 700 ml Balance -100 ml Weight (Pounds): 195 Weight (Calculated Kilograms): 88.053305 Constitutional: AAO x 3, well-developed, well-nourished Cardiovascular: regular rate-rhythm Gastrointestional: No tender; soft, round, audible bowel sounds Extremities: no lower extremity edema bilateral Neurologic/Psychiatric: other (RUE and RLE 4/5) Skin: No rash on exposed areas, No ulcerations on exposed areas Results/Procedures: Labs Laboratory Tests 05/01/20 04:35: White Blood Count 8.4, Red Blood Count 4.85, Hemoglobin 13.7, Hematocrit 43, Mean Corpuscular Volume 88, Mean Corpuscular Hemoglobin 28, Mean Corpuscular Hem oglobin Concent 32, Red Cell Distribution Width 13.2, Platelet Count 217, Mean Platelet Volume 12.3H, Immature Granulocyte % (Auto) 0, Neutrophils (%) (Auto) 56, Lymphocytes (%) (Auto) 29, Monocytes (%) (Auto) 12, Eosinophils (%) (Auto) 3, Basophils (%) (Auto) 0, Neutrophils # (Auto) 4.7, Lymphocytes # (Auto) 2.4, Monocytes # (Auto) 1.0, Eosinophils # (Auto) 0.2, Basophils # (Auto) 0.0, Immature Granulocyte # (Auto) 0.0, Sodium Level 141, Potassium Level 3.9, Chlo ride Level 110H, Carbon Dioxide Level 21, Anion Gap 10, Blood Urea Nitrogen 18, Creatinine 1.02, Estimat Glomerular Filtration Rate 54, BUN/Creatinine Ratio 18, Glucose Level 136H, Calcium Level 8.9, Corrected Calcium 9.2, Total Bilirubin 0.3, Aspartate Amino Transf (AST/SGOT) 26, Alanine Aminotransferase (ALT/SGPT) 42, Alkaline Phosphatase 71, Total Protein 6.2L, Albumin 3.6 05/01/20 11:00: Glucometer 103 Laboratory Tests 05/01/20 04:35 A/P: Assessment: 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
[2020-05-01] MEDS: FENOFIBRATE 134 MG (LOFIBRA) CAPSULE PO SCH (20:28)
[2020-05-01] MEDS: CATHETER FLUSH 10 ML SYR IV SCH (20:28)
--- NOTE | 2020-05-02 05:55 | PM&R Progress Note ---
Subjective HPI/CC On Admission Date Seen by Provider: May 02, 2020 Time Seen by Provider: 10:00 Subjective/Events-last exam 05/02/20: Function has improved dramatically BP elevated still managed by Dr Reyes No pain reported Loop recorder discussed CPAP brought in from home 05/01/20: Pt doing pretty well BP 158/99 On telemetry Voiding okay after catheter removed Right arm is improved, was able to eat breakfast with her arm and hand Cardiology appreciated Review of Systems Neurological: Weakness, Incoordination Objective Exam Vital Signs Vital Signs Date Time Temp Pulse Resp B/P (MAP) Pulse Ox O2 Delivery O2 Flow Rate FiO2 05/03/20 01:00 70 05/02/20 20:15 Room Air 05/02/20 17:40 36.2 18 155/102 (119) 99 Capillary Refill : General Appearance: No Apparent Distress, WD/WN, Chronically ill, Obese HEENT: PERRL/EOMI, Normal ENT Inspection, Pharynx Normal Neck: Full Range of Motion, Normal Inspection, Non Tender, Supple, Carotid Bruit Respiratory: Chest Non Tender, Lungs Clear, Normal Breath Sounds, No Accessory Muscle Use, No Respiratory Distress Cardiovascular: Regular Rate, Rhythm, No Edema, No Gallop, No JVD, No Murmur, Normal Peripheral Pulses Gastrointestinal: Normal Bowel Sounds, No Organomegaly, No Pulsatile Mass, Non Tender, Soft Back: Normal Inspection, No CVA Tenderness, No Vertebral Tenderness Extremity: Normal Capillary Refill, Normal Inspection, Normal Range of Motion, Non Tender, No Calf Tenderness, No Pedal Edema Neurologic/Psychiatric: Alert, Oriented x3, Normal Mood/Affect, Abnormal Gait, Motor Weakness (right upper extremity 3/5, right lower extremity 4/5) Skin: Normal Color, Warm/Dry Lymphatic: No Adenopathy Results/Procedures Lab Patient resulted labs reviewed. FIM Transfers Therapy Code Descriptions/Definitions Functional [place] Measure: 0=Not Assessed/NA 4=Minimal Assistance 1=Total Assistance 5=Supervision or Setup 2=Maximal Assistance 6=Modified [place] 3=Moderate Assistance 7=Complete IndependenceSCALE: Activities may be completed with or without assistive devices. 8-Kacgdzbocp-uuefrcq completes the activity by him/herself with no assistance from a helper. 5-Set-up or Clean-up Assistance-helper sets up or cleans up; patient completes activity. [place] assists only prior to or following the activity. 4-Supervision or Touching Assistance-helper provides verbal cues and/or touching/steadying and/or contact guard assistance as patient completes activity. Assistance may be provided throughout the activity or intermittently. 3-Partial/Moderate Assistance-helper does LESS THAN HALF the effort. [place] lifts, holds or supports trunk or limbs, but provides less than half the effort. 2-Substantial/Maximal Assistance-helper does MORE THAN HALF the effort. [place] lifts or holds trunk or limbs and provides more than half the effort. 9-Nwomakqco-skvjql does ALL the effort. Patient does none of the effort to complete the activity. Or, the assistance of 2 or more helpers is required for the patient to complete the activity. If activity was not attempted, code reason: 7-Patient Refused. 9-Not Applicable-not attempted and the patient did not perform the activity before the current illness, exacerbation or injury. 10-Not Attempted due to Environmental Limitations-(lack of equipment, weather restraints, etc.). 88-Not Attempted due to Medical Conditions or Safety Concerns. Roll Left to Right (QC): 6 Sit to Lying (QC): 6 Sit to Stand (QC): 5 Chair/Imr-hl-Lioww Xfer(QC): 4 Car Transfer (QC): 4 Gait Training Does the Patient Walk?: Yes Distance: 250' Walk 10 feet (QC): 5 Walk 50 ft with 2 Turns(QC): 5 Walk 150 ft (QC): 5 Walking 10ft/uneven surface-QC: 4 Gait Persons Needed: 1 Gait Assistive Device: FWW Wheelchair Training Does the Pt Use a Wheelchair?: No Wheel 50 ft with 2 turns (QC): 9 Wheel 150 ft (QC): 9 Stair Training #of Steps: 1 1 Step (curb) (QC): 4 4 Steps (QC): 88 12 Steps (QC): 88 Balance Picking up an Object (QC): 4 ADL-Treatment Eating (QC): 6 (states ate breakfast with use of R UE only. ) Oral Hygiene (QC): 6 (seated, per clinical judgment.) Shower/Bathe Self (QC): 7 Upper Body Dressing (QC): 5 (s/u) Lower Body Dressing (QC): 4 (completes threading with IND, sit to stand and pulls over hips with SBA> ) On/Off Footwear (QC): 4 (SUP) Toileting Hygiene (QC): 6 (IND in sit on standard toilet. ) Toilet Transfer (QC): 4 (SBA, use of walker. ) Assessment/Plan Assessment and Plan Assess & Plan/Chief Complaint Assessment: CVA with right sided weakness HTN malignant type Hypothyroidism HLP Obesity SUBHA on CPAP Plan: IRF protocol Monitor BP Fall risk 05/01/20: Progressing rapidly Doing well Monitor BP Tely 05/02/20: CPAP Loop recorder? Monitor BP (1) Acute CVA (cerebrovascular accident) Status: Acute (2) Hypertension Status: Acute SUSI BAR DO May 02, 2020 05:55
[2020-05-02 06:05] VITALS: BP 156/97
[2020-05-02] MEDS: CATHETER FLUSH 10 ML SYR IV SCH ×3 (06:49→20:13)
[2020-05-02] MEDS: LEVOTHYROXINE 112 MCG (LEVOTHROID) TAB PO SCH (06:49)
[2020-05-02] MEDS: DOCUSATE SODIUM 100 MG (COLACE) CAP PO SCH ×2 (08:15→19:25)
[2020-05-02] MEDS: polyethylene glycoL POWDER 17 GM (MIRALAX) PACK PO SCH ×2 (08:15→19:25)
[2020-05-02] MEDS: SENNA W/DOCUSATE (SENOKOT S) TABLET PO SCH ×2 (08:16→19:26)
[2020-05-02] MEDS: ASPIRIN 325 MG (5 GR) TABLET PO SCH (08:23)
[2020-05-02] MEDS: LORATADINE (CLARITIN) 10 MG TAB PO SCH (08:23)
[2020-05-02] MEDS: amLODIPine 5 MG (NORVASC) TAB PO SCH (08:23)
[2020-05-02] MEDS: lisINopril 40 MG (PRINIVIL) TABLET PO SCH (08:23)
[2020-05-02] MEDS ORDERED: meTOproloL SUCCINATE 50 MG (TOPROL XL) TAB PO SCH ×2 (09:00→17:45)
--- NOTE | 2020-05-02 09:34 | Occupational Ther Daily Note ---
OT Current Status-Daily Note Subjective Pt AxO, agrees to tx. Pt denies pain, states feels stronger. Toward end of session pt states she is feeling fatigued (RLE tired/ weak) Mental Status/Objective Patient Orientation: Person, Place, Situation, Normal For Age Attachments: Telemetry ADL-Treatment Therapy Code Descriptions/Definitions Functional [place] Measure: 0=Not Assessed/NA 4=Minimal Assistance 1=Total Assistance 5=Supervision or Setup 2=Maximal Assistance 6=Modified [place] 3=Moderate Assistance 7=Complete IndependenceSCALE: Activities may be completed with or without assistive devices. 9-Yxaoxeirgm-eojnvpf completes the activity by him/herself with no assistance from a helper. 5-Set-up or Clean-up Assistance-helper sets up or cleans up; patient completes activity. [place] assists only prior to or following the activity. 4-Supervision or Touching Assistance-helper provides verbal cues and/or touching/steadying and/or contact guard assistance as patient completes activity. Assistance may be provided throughout the activity or intermittently. 3-Partial/Moderate Assistance-helper does LESS THAN HALF the effort. [place] lifts, holds or supports trunk or limbs, but provides less than half the effort. 2-Substantial/Maximal Assistance-helper does MORE THAN HALF the effort. [place] lifts or holds trunk or limbs and provides more than half the effort. 8-Nxinqmdhs-wwjfbn does ALL the effort. Patient does none of the effort to complete the activity. Or, the assistance of 2 or more helpers is required for the patient to complete the activity. If activity was not attempted, code reason: 7-Patient Refused. 9-Not Applicable-not attempted and the patient did not perform the activity before the current illness, exacerbation or injury. 10-Not Attempted due to Environmental Limitations-(lack of equipment, weather restraints, etc.). 88-Not Attempted due to Medical Conditions or Safety Concerns. Eating (QC): 6 Oral Hygiene (QC): 4 (SUP at sink. ) Bathing Location: L Arm, R Arm, L Upper Leg, R Upper Leg, L Lower Leg (including foot), R Lower Leg (including foot), Chest, Abdomen, Buttocks, Perineal Area Shower/Bathe Self (QC): 4 (SBA in stance. Pt completes all showering in stance as does not have room for sc in shower, however, pt also states unable to install grab bars in shower (utilizes gbs 2x during session). ) Upper Body Dressing (QC): 6 (gathers and completes ) Lower Body Dressing (QC): 4 (SBA (completes in sitting/ standing with no LOB)) On/Off Footwear: 6 (IND on sc.) Toileting Hygiene (QC): 6 (IND) Toilet Transfer (QC): 4 (SUP, use of walker on standard toilet.) Other Treatment Pt completes showering/ dressing as outlined. Pt is questioned on what needs to work on to go home, pt states mainly strength in RLE and balance tasks. Pt stands in front of mirror to complete BUE/ standing balance task while blow drying hair. Completes with SUP. Pt states difficulty with writing tasks, given adaptive handle for penitentiary writing to increase endurance/ accuracy. Pt states much easier to hold on to, writes signature 10x with no c/o fatigue. Pt ambulates around section, to gym. Completes standing/ midline crossing/ in hand manipulation and hand strengthening tasks with no LOB. Pt states feels better than prior. Cab Worker strength assessed with avg of 55 (5 lb increase since evaluation 2 days ago). Pt is educated on this, ambulates to room to complete toileting/ returns to chair with all needs met, call light in reach. Education OT Patient Education: Correct positioning, Energy conservation, Exercise program, Home exercise program, Modified ADL techniques, Progress toward G oal/Update tx plan, Purpose of tx/functional activities, Safety issues, Use of adapted equipment Teaching Recipient: Patient Teaching Methods: Demonstration, Discussion Response to Teaching: Verbalize Understanding, Return Demonstration OT Short Term Goals Short Term Goals Toileting hygiene: 5 Shower/bathe self: 5 Upper body dressin Lower body dressin Putting on/taking off footwear: 4 OT Correction Goals Correction Goals Time Frame: May 14, 2020 Eating (QC): 6 Oral Hygiene (QC): 6 Toileting Hygiene (QC): 6 Shower/Bathe Self (QC): 6 Upper Body Dressing (QC): 6 Lower Body Dressing (QC): 6 On/Off Footwear (QC): 6 Additional Goals: 1-Demonstrate ADL Tasks, 2-Verbalize Understanding, 3- ImproveStrength/Vanesa 1=Demonstrate adherence to instructed precautions during ADL tasks. 2=Patient will verbalize/demonstrate understanding of assistive devices/ modifications for ADL. 3=Patient will improve strength/tolerance for activity to enable patient to perform ADL's. OT Education/Plan Problem List/Assessment Assessment: Decreased Activ Tolerance, Decreased UE Strength, Impaired I ADL's, Impaired Self-Care Skills Discharge Recommendations Plan/Recommendations: Continue POC Therapy Discharge Recommendati: Home & Family Treatment Plan/Plan of Care Treatment,Training & Education: Yes Patient would benefit from OT for education, treatment and training to promote independence in ADL's, mobility, safety and/or upper extremity function for ADL's. Plan of Care: ADL Retraining, Caregiver Training, Concurrent Therapy, Functional Mobility, Group Exercise/Act as Ind, Orthotic Fitting/Training, UE Funct Exercise/Act, UE Neuromus Re-Ed/Coord Treatment Duration: May 14, 2020 Frequency: At least 5 of 7 days/Wk (IRF) Estimated Hrs Per Day: 1.5 hours per day Agreement: Yes Rehab Potential: Fair Time/GCodes Start Time: 08:00 Stop Time: 09:30 Total Time Billed (hr/min): 90 Billed Treatment Time 1, ADL 4 (60), EX 2 (30)= 90 KANG ODONNELL OTR May 02, 2020 09:34
--- NOTE | 2020-05-02 10:56 | Progress Note - Cardiology ---
Cardiology SOAP Progress Note Subjective: Up to chair at the bedside States she feels good today Feels right sided weakness is improving No c/o palpitations, CP or SOB Objective: I&O/Vital Signs 05/06/20 05/06/20 05/06/20 05/06/20 01:00 05:52 06:28 09:00 Temp 36.2 Pulse 71 77 71 Resp 16 B/P (MAP) 117/63 (81) Pulse Ox 95 O2 Delivery Room Air Room Air 05/06/20 00:00 Intake Total 1400 ml Balance 1400 ml Weight (Pounds): 195 Weight (Calculated Kilograms): 88.631067 Constitutional: AAO x 3, well-developed, well-nourished Cardiovascular: regular rate-rhythm Gastrointestional: No tender; soft, round, audible bowel sounds Extremities: no lower extremity edema bilateral Neurologic/Psychiatric: other (RUE and RLE 4/5) Skin: No rash on exposed areas, No ulcerations on exposed areas Results/Procedures: Labs Laboratory Tests 05/06/20 05:35: White Blood Count 8.2, Red Blood Count 5.10, Hemoglobin 14.4, Hematocrit 45, Mean Corpuscular Volume 89, Mean Corpuscular Hemoglobin 28, Mean Corpuscular Hemoglobin Concent 32, Red Cell Distribution Width 12.9, Platelet Count 242, Mean Platelet Volume 12.1, Immature Granulocyte % (Auto) 0, Neutrophils (%) (Auto) 63, Lymphocytes (%) (Auto) 25, Monocytes (%) (Auto) 9, Eosinophils (%) (Auto) 3, Basophils (%) (Auto) 0, Neutrophils # (Auto) 5.1, Lymphocytes # (Auto) 2.0, Monocytes # (Auto) 0.8, Eosinophils # (Auto) 0.2, Basophils # (Auto) 0.0, Immature Granulocyte # (Auto) 0.0, Sodium Level 140, Potassium Level 4.3, Chlori de Level 109H, Carbon Dioxide Level 21, Anion Gap 10, Blood Urea Nitrogen 20H, Creatinine 1.10, Estimat Glomerular Filtration Rate 49, BUN/Creatinine Ratio 18, Glucose Level 128H, Calcium Level 9.3, Corrected Calcium 9.5, Total Bilirubin 0.3, Aspartate Amino Transf (AST/SGOT) 29, Alanine Aminotransferase (ALT/SGPT) 51, Alkaline Phosphatase 73, Total Protein 6.9, Albumin 3.8 A/P: Assessment: 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
[2020-05-02] MEDS ORDERED: meTOproloL SUCCINATE 50 MG (TOPROL XL) TAB PO NR (11:00)
--- NOTE | 2020-05-02 11:15 | Physical Therapy Daily Note ---
PT Daily Note-Current Subjective Pt sitting in chair upon arrival. Pt agrees to PT. Pain Location: No Pain Reported Mental Status Patient Orientation: Person, Place, Time, Situation Transfers SCALE: Activities may be completed with or without assistive devices. 3-Ilbrwxljma-qznwdkh completes the activity by him/herself with no assistance from a helper. 5-Set-up or Clean-up Assistance-helper sets up or cleans up; patient completes activity. [place] assists only prior to or following the activity. 4-Supervision or Touching Assistance-helper provides verbal cues and/or touching/steadying and/or contact guard assistance as patient completes activity. Assistance may be provided throughout the activity or intermittently. 3-Partial/Moderate Assistance-helper does LESS THAN HALF the effort. [place] lifts, holds or supports trunk or limbs, but provides less than half the effort. 2-Substantial/Maximal Assistance-helper does MORE THAN HALF the effort. [place] lifts or holds trunk or limbs and provides more than half the effort. 1-Lcpzxhmli-vithsq does ALL the effort. Patient does none of the effort to complete the activity. Or, the assistance of 2 or more helpers is required for the patient to complete the activity. If activity was not attempted, code reason: 7-Patient Refused. 9-Not Applicable-not attempted and the patient did not perform the activity before the current illness, exacerbation or injury. 10-Not Attempted due to Environmental Limitations-(lack of equipment, weather restraints, etc.). 88-Not Attempted due to Medical Conditions or Safety Concerns. Sit to Stand (QC): 5 Toilet Transfer (QC): 5 Weight Bearing Full Weight Bearing Full Weight Bearing Gait Training Does the Patient Walk?: Yes Distance: 100', 175' Walk 10 feet (QC): 5 Walk 50 ft with 2 Turns(QC): 5 Walk 150 ft (QC): 5 Gait Persons Needed: 1 Gait Assistive Device: FWW Wheelchair Training Does the Pt Use a Wheelchair?: No Exercises NuStep Minutes: 15 NuStep Workload: 4 Treatments TF to standing and amb to BR. Pt then amb. in hallway. Pt uses NuStep for 15m at WL 4. Pt returns to room to rest at end of tx with all needs met, call light in hand. Assessment Current Status: Good Progress Pt betito. tx well. PT Short Term Goals Short Term Goals Time Frame: May 07, 2020 Roll Left & Right: 6 Sit to lyin Lying to sitting on side of be: 6 Sit to stand: 4 Chair/iwc-sm-qmmoh transfer: 4 Walk 10 feet: 4 Walk 50 feet with two turns: 4 Walk 150 feet: 4 PT Care Home Goals Internet Application Developer Goals PT Care Home Goals Time Frame: May 21, 2020 Roll Left & Right (QC): 6 Sit to Lying (QC): 6 Lying-Sitting on Side/Bed(QC): 6 Sit to Stand (QC): 6 Chair/Itu-fr-Qnqvd Xfer(QC): 6 Toilet Transfer (QC): 6 Car Transfer (QC): 6 Does the Patient Walk: Yes Walk 10 feet (QC): 6 Walk 50ft with 2 Turns (QC): 6 Walk 150 ft (QC): 6 Walking 10ft on Uneven Surface: 6 1 Step (curb) (QC): 4 4 Steps (QC): 4 12 Steps (QC): 88 Picking up an Object (QC): 5 Wheel 50 feet with 2 turns (QC: 9 Wheel 150 feet: 9 PT Plan Problem List Problem List: Activity Tolerance, Gait Treatment/Plan Treatment Plan: Continue Plan of Care Treatment Plan: Bed Mobility, Education, Functional Activity Vanesa, Functional Strength, Group Therapy, Gait, Safety, Therapeutic Exercise, Transfers Treatment Duration: May 21, 2020 Frequency: At least 5 of 7 days/Wk (IRF) Estimated Hrs Per Day: 1.5 hours per day Patient and/or Family Agrees t: Yes Time/GCodes Time In: 1030 Time Out: 1115 Total Billed Treatment Time: 45 Total Billed Treatment 1, GT (15m), FA (15m) & EX (15m) IVIS DUPREE SAND TEMPERER May 02, 2020 11:15
--- NOTE | 2020-05-02 16:35 | Physical Therapy Daily Note ---
PT Daily Note-Current Subjective Pt sitting in recliner visiting with son upon arrival. Pt agrees to PT. Pain Location: No Pain Reported Mental Status Patient Orientation: Person, Place, Time, Situation Transfers SCALE: Activities may be completed with or without assistive devices. 1-Ordjbsskcm-qqkyxre completes the activity by him/herself with no assistance f rom a helper. 5-Set-up or Clean-up Assistance-helper sets up or cleans up; patient completes activity. [place] assists only prior to or following the activity. 4-Supervision or Touching Assistance-helper provides verbal cues and/or touching/steadying and/or contact guard assistance as patient completes activity. Assistance may be provided throughout the activity or intermittently. 3-Partial/Moderate Assistance-helper does LESS THAN HALF the effort. [place] lifts, holds or supports trunk or limbs, but provides less than half the effort. 2-Substantial/Maximal Assistance-helper does MORE THAN HALF the effort. [place] lifts or holds trunk or limbs and provides more than half the effort. 3-Fmzrrwvug-dmnjpf does ALL the effort. Patient does none of the effort to complete the activity. Or, the assistance of 2 or more helpers is required for the patient to complete the activity. If activity was not attempted, code reason: 7-Patient Refused. 9-Not Applicable-not attempted and the patient did not perform the activity before the current illness, exacerbation or injury. 10-Not Attempted due to Environmental Limitations-(lack of equipment, weather restraints, etc.). 88-Not Attempted due to Medical Conditions or Safety Concerns. Sit to Stand (QC): 5 Toilet Transfer (QC): 5 Weight Bearing Full Weight Bearing Full Weight Bearing Gait Training Does the Patient Walk?: Yes Distance: 100', 450' Walk 10 feet (QC): 5 Walk 50 ft with 2 Turns(QC): 5 Walk 150 ft (QC): 5 Gait Persons Needed: 1 Gait Assistive Device: FWW Wheelchair Training Does the Pt Use a Wheelchair?: No Exercises Standing: Heel/toe raises, 3 way Ex=Flex, Abd, Ext, Marching, Mini squats, Sit to Stand Standing Reps: 15 Treatments TF to standing and amb. to BR. After using BR, amb. in hallway. Pt completes Standing EX at //bars. Am b extended distance in hallway then returns to room to rest in chair. All needs met, call light in hand. Assessment Current Status: Good Progress Pt betito. tx well. PT Short Term Goals Short Term Goals Time Frame: May 07, 2020 Roll Left & Right: 6 Sit to lyin Lying to sitting on side of be: 6 Sit to stand: 4 Chair/pfx-br-lvjpx transfer: 4 Walk 10 feet: 4 Walk 50 feet with two turns: 4 Walk 150 feet: [address] Mender Goals Halfway Goals PT Halfway Goals Time Frame: May 21, 2020 Roll Left & Right (QC): 6 Sit to Lying (QC): 6 Lying-Sitting on Side/Bed(QC): 6 Sit to Stand (QC): 6 Chair/Cta-hu-Ygllq Xfer(QC): 6 Toilet Transfer (QC): 6 Car Transfer (QC): 6 Does the Patient Walk: Yes Walk 10 feet (QC): 6 Walk 50ft with 2 Turns (QC): 6 Walk 150 ft (QC): 6 Walking 10ft on Uneven Surface: 6 1 Step (curb) (QC): 4 4 Steps (QC): 4 12 Steps (QC): 88 Picking up an Object (QC): 5 Wheel 50 feet with 2 turns (QC: 9 Wheel 150 feet: 9 PT Plan Problem List Problem List: Activity Tolerance Treatment/Plan Treatment Plan: Continue Plan of Care Treatment Plan: Bed Mobility, Education, Functional Activity Vanesa, Functional Strength, Group Therapy, Gait, Safety, Therapeutic Exercise, Transfers Treatment Duration: May 21, 2020 Frequency: At least 5 of 7 days/Wk (IRF) Estimated Hrs Per Day: 1.5 hours per day Patient and/or Family Agrees t: Yes Safety Risks/Education Patient Education: Gait Training, Transfer Techniques, Correct Positioning, Safety Issues Teaching Recipient: Patient Teaching Methods: Discussion Response to Teaching: Verbalize Understanding Time/GCodes Time In: 1330 Time Out: 1415 Total Billed Treatment Time: 45 Total Billed Treatment 1, GT (20m) & EX x2 (25m) IVIS DUPREE SALES AND MARKETING COORDINATOR May 02, 2020 16:35
[2020-05-02 17:40] VITALS: BP 155/102
--- NOTE | 2020-05-02 17:44 | Progress Note - Cardiology ---
Cardiology SOAP Progress Note Subjective: No cp or palp or syncope or shortness of breath at rest Some gen malaise No n/v/d R-sided weakness Objective: I&O/Vital Signs 05/02/20 05/02/20 05/02/20 05/02/20 06:05 07:43 09:17 13:00 Temp 36.3 Pulse 88 100 110 Resp 20 B/P (MAP) 156/97 (116) Pulse Ox 97 94 O2 Delivery Room Air Room Air 05/02/20 17:40 Temp 36.2 Pulse 80 Resp 18 B/P (MAP) 155/102 (119) Pulse Ox 99 O2 Delivery Room Air 05/02/20 00:00 Intake Total 1520 ml Balance 1520 ml Weight (Pounds): 195 Weight (Calculated Kilograms): 88.194561 Constitutional: AAO x 3, well-developed, well-nourished Cardiovascular: regular rate-rhythm Gastrointestional: No tender; soft, round, audible bowel sounds Extremities: no lower extremity edema bilateral Neurologic/Psychiatric: other (RUE and RLE 4/5) Skin: No rash on exposed areas, No ulcerations on exposed areas Results/Procedures: Labs Laboratory Tests 05/01/20 04:35 A/P: Assessment: 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
[2020-05-02] MEDS: FENOFIBRATE 134 MG (LOFIBRA) CAPSULE PO SCH (20:12)
[2020-05-03] MEDS: LEVOTHYROXINE 112 MCG (LEVOTHROID) TAB PO SCH (05:32)
[2020-05-03] MEDS: CATHETER FLUSH 10 ML SYR IV SCH ×3 (05:32→21:00)
[2020-05-03 06:00] VITALS: BP 166/107
[2020-05-03] MEDS: DOCUSATE SODIUM 100 MG (COLACE) CAP PO SCH ×2 (08:34→21:00)
[2020-05-03] MEDS: polyethylene glycoL POWDER 17 GM (MIRALAX) PACK PO SCH ×2 (08:34→21:00)
[2020-05-03] MEDS: SENNA W/DOCUSATE (SENOKOT S) TABLET PO SCH ×2 (08:34→21:00)
[2020-05-03] MEDS: meTOprolol SUCCINATE 100 MG (TOPROL XL) TAB PO SCH (08:36)
[2020-05-03] MEDS: ASPIRIN 325 MG (5 GR) TABLET PO SCH (08:36)
[2020-05-03] MEDS: LORATADINE (CLARITIN) 10 MG TAB PO SCH (08:36)
--- NOTE | 2020-05-03 10:06 | Physical Therapy Daily Note ---
PT Daily Note-Current Subjective Pt. agrees to Rx. States she feels ok but has had a report of high BP today...recorded at 170 /110 Pain Location: No Pain Reported Mental Status Patient Orientation: Normal For Age Transfers SCALE: Activities may be completed with or without assistive devices. 5-Cxjycmgtkx-vkwhaef completes the activity by him/herself with no assistance from a helper. 5-Set-up or Clean-up Assistance-helper sets up or cleans up; patient completes activity. [place] assists only prior to or following the activity. 4-Supervision or Touching Assistance-helper provides verbal cues and/or touching /steadying and/or contact guard assistance as patient completes activity. Assistance may be provided throughout the activity or intermittently. 3-Partial/Moderate Assistance-helper does LESS THAN HALF the effort. [place] lifts, holds or supports trunk or limbs, but provides less than half the effort. 2-Substantial/Maximal Assistance-helper does MORE THAN HALF the effort. [place] lifts or holds trunk or limbs and provides more than half the effort. 3-Gsjbsnwnr-snmqui does ALL the effort. Patient does none of the effort to complete the activity. Or, the assistance of 2 or more helpers is required for the patient to complete the activity. If activity was not attempted, code reason: 7-Patient Refused. 9-Not Applicable-not attempted and the patient did not perform the activity before the current illness, exacerbation or injury. 10-Not Attempted due to Environmental Limitations-(lack of equipment, weather restraints, etc.). 88-Not Attempted due to Medical Conditions or Safety Concerns. Roll Left & Right (QC): 6 Sit to Lying (QC): 6 Lying to Sitting/Side of Bed(Q: 6 Sit to Stand (QC): 6 Chair/Sei-jm-Hdaxk Xfer(QC): 6 Toilet Transfer (QC): 6 Weight Bearing Full Weight Bearing Full Weight Bearing Gait Training Does the Patient Walk?: Yes Walk 10 feet (QC): 5 Walk 50 ft with 2 Turns(QC): 5 Walk 150 ft (QC): 5 Gait Persons Needed: 1 Gait Assistive Device: FWW SBA to CGA 250, 150 no taj LOB Exercises Supine Ex: Bridging, Ankle pumps, Quad Set, Rolling, Glut sets, Heel Slides, Short Arc Quads, Scooting, Straight leg raise, Hip abd/add Supine Reps: 15 Seated Therapy Exercises: Ankle pumps, Sit to stand, Long arc quads, Hip flexion, Hip abd/add Seated Reps: 15 NuStep Minutes: 8 NuStep Workload: 4 Assessment Current Status: Good Progress PT Short Term Goals Short Term Goals Time Frame: May 07, 2020 Roll Left & Right: 6 Sit to lyin Lying to sitting on side of be: 6 Sit to stand: 4 Chair/wmt-ia-luepi transfer: 4 Walk 10 feet: 4 Walk 50 feet with two turns: 4 Walk 150 feet: 4 PT Communications Department Head Goals Alf Goals PT Alf Goals Time Frame: May 21, 2020 Roll Left & Right (QC): 6 Sit to Lying (QC): 6 Lying-Sitting on Side/Bed(QC): 6 Sit to Stand (QC): 6 Chair/Rxz-cz-Dnwhd Xfer(QC): 6 Toilet Transfer (QC): 6 Car Transfer (QC): 6 Does the Patient Walk: Yes Walk 10 feet (QC): 6 Walk 50ft with 2 Turns (QC): 6 Walk 150 ft (QC): 6 Walking 10ft on Uneven Surface: 6 1 Step (curb) (QC): 4 4 Steps (QC): 4 12 Steps (QC): 88 Picking up an Object (QC): 5 Wheel 50 feet with 2 turns (QC: 9 Wheel 150 feet: 9 PT Plan Treatment/Plan Treatment Plan: Continue Plan of Care Treatment Plan: Bed Mobility, Education, Functional Activity Vanesa, Functional Strength, Group Therapy, Gait, Safety, Therapeutic Exercise, Transfers Treatment Duration: May 21, 2020 Frequency: At least 5 of 7 days/Wk (IRF) Estimated Hrs Per Day: 1.5 hours per day Patient and/or Family Agrees t: Yes Safety Risks/Education Patient Education: Gait Training, Transfer Techniques, Correct Positioning, Disease Process, Safety Issues Teaching Recipient: Patient Teaching Methods: Demonstration, Discussion Response to Teaching: Verbalize Understanding, Return Demonstration, Reinforcement Needed Time/GCodes Time In: 900 Time Out: 1000 Total Billed Treatment Time: 60 Total Billed Treatment 1,GT25m,EX35m JORGE ALBERTO MCKENNA ENGRAVER HAND HARD METALS May 03, 2020 10:06
--- NOTE | 2020-05-03 10:17 | PM&R Progress Note ---
Subjective HPI/CC On Admission Date Seen by Provider: May 03, 2020 Time Seen by Provider: 10:15 Subjective/Events-last exam 05/03/20: Had a fall early this morning at 0500 when she was in bathroom with PCT at bedside today and I introduced myself BP still elevated and managed by Dr Reyes 05/02/20: Function has improved dramatically BP elevated still managed by Dr Reyes No pain reported Loop recorder discussed CPAP brought in from home 05/01/20: Pt doing pretty well BP 158/99 On telemetry Voiding okay after catheter removed Right arm is improved, was able to eat breakfast with her arm and hand Cardiology appreciated Review of Systems General: Fatigue, Malaise Neurological: Weakness, Incoordination Objective Exam Vital Signs Vital Signs Date Time Temp Pulse Resp B/P (MAP) Pulse Ox O2 Delivery O2 Flow Rate FiO2 05/03/20 20:58 7 164/91 (115) 05/03/20 20:16 Room Air 05/03/20 17:07 36.2 20 96 Capillary Refill : General Appearance: No Apparent Distress, WD/WN, Chronically ill, Obese HEENT: PERRL/EOMI, Normal ENT Inspection, Pharynx Normal Neck: Full Range of Motion, Normal Inspection, Non Tender, Supple, Carotid Bruit Respiratory: Chest Non Tender, Lungs Clear, Normal Breath Sounds, No Accessory Muscle Use, No Respiratory Distress Cardiovascular: Regular Rate, Rhythm, No Edema, No Gallop, No JVD, No Murmur, Normal Peripheral Pulses Gastrointestinal: Normal Bowel Sounds, No Organomegaly, No Pulsatile Mass, Non Tender, Soft Back: Normal Inspection, No CVA Tenderness, No Vertebral Tenderness Extremity: Normal Capillary Refill, Normal Inspection, Normal Range of Motion, Non Tender, No Calf Tenderness, No Pedal Edema Neurologic/Psychiatric: Alert, Oriented x3, Normal Mood/Affect, Abnormal Gait, Motor Weakness (right upper extremity 3/5, right lower extremity 4/5) Skin: Normal Color, Warm/Dry Lymphatic: No Adenopathy Results/Procedures Lab Patient resulted labs reviewed. FIM Transfers Therapy Code Descriptions/Definitions Functional [place] Measure: 0=Not Assessed/NA 4=Minimal Assistance 1=Total Assistance 5=Supervision or Setup 2=Maximal Assistance 6=Modified [place] 3=Moderate Assistance 7=Complete IndependenceSCALE: Activities may be completed with or without assistive devices. 9-Blhguqhuux-unpqmpb completes the activity by him/herself with no assistance from a helper. 5-Set-up or Clean-up Assistance-helper sets up or cleans up; patient completes activity. [place] assists only prior to or following the activity. 4-Supervision or Touching Assistance-helper provides verbal cues and/or touching/steadying and/or contact guard assistance as patient completes activity. Assistance may be provided throughout the activity or intermittently. 3-Partial/Moderate Assistance-helper does LESS THAN HALF the effort. [place] lifts, holds or supports trunk or limbs, but provides less than half the effort. 2-Substantial/Maximal Assistance-helper does MORE THAN HALF the effort. [place] lifts or holds trunk or limbs and provides more than half the effort. 2-Jhcenfcnz-gdysvn does ALL the effort. Patient does none of the effort to complete the activity. Or, the assistance of 2 or more helpers is required for the patient to complete the activity. If activity was not attempted, code reason: 7-Patient Refused. 9-Not Applicable-not attempted and the patient did not perform the activity before the current illness, exacerbation or injury. 10-Not Attempted due to Environmental Limitations-(lack of equipment, weather restraints, etc.). 88-Not Attempted due to Medical Conditions or Safety Concerns. Roll Left to Right (QC): 6 Sit to Lying (QC): 6 Sit to Stand (QC): 6 Chair/Fcy-za-Fthna Xfer(QC): 6 Car Transfer (QC): 4 Gait Training Does the Patient Walk?: Yes Distance: 100', 450' Walk 10 feet (QC): 5 Walk 50 ft with 2 Turns(QC): 5 Walk 150 ft (QC): 5 Walking 10ft/uneven surface-QC: 4 Gait Persons Needed: 1 Gait Assistive Device: FWW Wheelchair Training Does the Pt Use a Wheelchair?: No Wheel 50 ft with 2 turns (QC): 9 Wheel 150 ft (QC): 9 Stair Training #of Steps: 1 1 Step (curb) (QC): 4 4 Steps (QC): 88 12 Steps (QC): 88 Balance Picking up an Object (QC): 4 ADL-Treatment Eating (QC): 6 Oral Hygiene (QC): 4 (SUP at sink. ) Bathing Location: L Arm, R Arm, L Upper Leg, R Upper Leg, L Lower Leg (including foot), R Lower Leg (including foot), Chest, Abdomen, Buttocks, Perineal Area Shower/Bathe Self (QC): 4 (SBA in stance. Pt completes all showering in stance as does not have room for sc in shower, however, pt also states unable to install grab bars in shower (utilizes gbs 2x during session). ) Upper Body Dressing (QC): 6 (gathers and completes ) Lower Body Dressing (QC): 4 (SBA (completes in sitting/ standing with no LOB)) On/Off Footwear (QC): 6 (IND on sc.) Toileting Hygiene (QC): 6 (IND) Toilet Transfer (QC): 4 (SUP, use of walker on standard toilet.) Assessment/Plan Assessment and Plan Assess & Plan/Chief Complaint Assessment: CVA with right sided weakness HTN malignant type Hypothyroidism HLP Obesity SUBHA on CPAP Fall 05/03/20 at 0500 without injury Plan: IRF protocol Monitor BP Fall risk 05/01/20: Progressing rapidly Doing well Monitor BP Tely 05/02/20: CPAP Loop recorder? Monitor BP 05/03/20: Monitor for falls Monitor BP Monitor for pain (1) Acute CVA (cerebrovascular accident) Status: Acute (2) Hypertension Status: Acute SUSI BAR DO May 03, 2020 10:17
--- NOTE | 2020-05-03 11:03 | Occupational Ther Daily Note ---
OT Current Status-Daily Note Subjective Pt AxO. Pt agrees to tx. Denies pain, though states a fall this am when in bathroom. States she stood, then RLE gave out/ fatigued and pt fell R into shower/ on R elbow. Pt denies light headedness, states she is "okay, just need to think about where I am." Mental Status/Objective Patient Orientation: Person, Place, Situation, Normal For Age ADL-Treatment Therapy Code Descriptions/Definitions Functional [place] Measure: 0=Not Assessed/NA 4=Minimal Assistance 1=Total Assistance 5=Supervision or Setup 2=Maximal Assistance 6=Modified [place] 3=Moderate Assistance 7=Complete IndependenceSCALE: Activities may be completed with or without assistive devices. 7-Bbgulqwrxm-iuamylo completes the activity by him/herself with no assistance from a helper. 5-Set-up or Clean-up Assistance-helper sets up or cleans up; patient completes activity. [place] assists only prior to or following the activity. 4-Supervision or Touching Assistance-helper provides verbal cues and/or touching/steadying and/or contact guard assistance as patient completes acti vity. Assistance may be provided throughout the activity or intermittently. 3-Partial/Moderate Assistance-helper does LESS THAN HALF the effort. [place] lifts, holds or supports trunk or limbs, but provides less than half the effort. 2-Substantial/Maximal Assistance-helper does MORE THAN HALF the effort. [place] lifts or holds trunk or limbs and provides more than half the effort. 8-Eomitntrb-mjozme does ALL the effort. Patient does none of the effort to complete the activity. Or, the assistance of 2 or more helpers is required for the patient to complete the activity. If activity was not attempted, code reason: 7-Patient Refused. 9-Not Applicable-not attempted and the patient did not perform the activity before the current illness, exacerbation or injury. 10-Not Attempted due to Environmental Limitations-(lack of equipment, weather restraints, etc.). 88-Not Attempted due to Medical Conditions or Safety Concerns. Eating (QC): 6 Upper Body Dressing (QC): 6 (gathers bra and shirt. Dons with increased time (bra) and IND.) Lower Body Dressing (QC): 4 (SUP) On/Off Footwear: 6 (IND with shoes.) Other Treatment Pt completes dressing in chair. Pt ambulates to kitchen area, completing meal prep with electric skilled and bilateral UE stabilization/ manipulation with SBA throughout. Pt's RUE requires min cues for shoulder stabilization, states fatigues more easily, one rest break during 15 min meal prep task. Pt able to stir/ whisk/ stabilize with RUE with increased time. Good safety awareness. Pt completes feeding task (opening containers, prepping food/ utilizing utensils to spread and eat) with IND. Pt completes clean up with SBA. Pt ambulates through hallway with SBA-CGA. Pt sits EOM, completes sitting balance tasks with wiggle cushion placed under pt and exercises for core strength/ stability. Pt completes standing balance/ reaching tasks (floor to shoulder-height) returns to room. Pt requests bathroom, toilet transfer SBA and use of walker. Pt denies needs, encouraged to pull cord end of BM. Pt agrees. Nursing notified of pt's position. Education OT Patient Education: Correct positioning, Energy conservation, Exercise program, Home exercise program, Modified ADL techniques, Progress toward Goal/Update tx plan, Purpose of tx/functional activities, Safety issues Teaching Recipient: Patient Teaching Methods: Demonstration, Discussion Response to Teaching: Verbalize Understanding, Return Demonstration OT Short Term Goals Short Term Goals Toileting hygiene: 5 Shower/bathe self: 5 Upper body dressin Lower body dressin Putting on/taking off footwear: 4 OT Correction Goals Avionics Safety Inspector Goals Time Frame: May 14, 2020 Eating (QC): 6 Oral Hygiene (QC): 6 Toileting Hygiene (QC): 6 Shower/Bathe Self (QC): 6 Upper Body Dressing (QC): 6 Lower Body Dressing (QC): 6 On/Off Footwear (QC): 6 Additional Goals: 1-Demonstrate ADL Tasks, 2-Verbalize Understanding, 3- ImproveStrength/Vanesa 1=Demonstrate adherence to instructed precautions during ADL tasks. 2=Patient will verbalize/demonstrate understanding of assistive devices/modifications for ADL. 3=Patient will improve strength/tolerance for activity to enable patient to perform ADL's. OT Education/Plan Problem List/Assessment Assessment: Decreased Activ Tolerance, Decreased UE Strength, Dependent Transfers, Impaired Coordination, Impaired Funct Balance, Impaired I ADL's, Impaired Self-Care Skills Discharge Recommendations Plan/Recommendations: Continue POC Therapy Discharge Recommendati: Home & Family Treatment Plan/Plan of Care Treatment,Training & Education: Yes Patient would benefit from OT for education, treatment and training to promote independence in ADL's, mobility, safety and/or upper extremity function for ADL's. Plan of Care: ADL Retraining, Caregiver Training, Concurrent Therapy, Functional Mobility, Group Exercise/Act as Ind, Orthotic Fitting/Training, UE Funct Exercise/Act, UE Neuromus Re-Ed/Coord Treatment Duration: May 14, 2020 Frequency: At least 5 of 7 days/Wk (IRF) Estimated Hrs Per Day: 1.5 hours per day Agreement: Yes Rehab Potential: Fair Time/GCodes Start Time: 07:00 Stop Time: 08:30 Total Time Billed (hr/min): 90 Billed Treatment Time 1, ADL 4 (60), EX 2 (30)= 90 KANG ODONNELL OTR May 03, 2020 11:03
--- NOTE | 2020-05-03 14:31 | Physical Therapy Daily Note ---
PT Daily Note-Current Subjective Patient in chair at bedside pre tx, agrees to PT, has no complaints of pain. Appearance Patient in chair at bedside post tx with nurse call, phone, tray, all needs met. Mental Status Patient Orientation: Person, Place, Situation Transfers SCALE: Activities may be completed with or without assistive devices. 5-Ijssazxyxx-drbquhm completes the activity by him/herself with no assistance from a helper. 5-Set-up or Clean-up Assistance-helper sets up or cleans up; patient completes activity. [place] assists only prior to or following the activity. 4-Supervision or Touching Assistance-helper provides verbal cues and/or touching/steadying and/or contact guard assistance as patient completes activity. Assistance may be provided throughout the activity or intermittently. 3-Partial/Moderate Assistance-helper does LESS THAN HALF the effort. [place] lifts, holds or supports trunk or limbs, but provides less than half the effort. 2-Substantial/Maximal Assistance-helper does MORE THAN HALF the effort. [place] lifts or holds trunk or limbs and provides more than half the effort. 9-Cruzpxfbf-xaunna does ALL the effort. Patient does none of the effort to complete the activity. Or, the assistance of 2 or more helpers is required for the patient to complete the activity. If activity was not attempted, code reason: 7-Patient Refused. 9-Not Applicable-not attempted and the patient did not perform the activity before the current illness, exacerbation or injury. 10-Not Attempted due to Environmental Limitations-(lack of equipment, weather restraints, etc.). 88-Not Attempted due to Medical Conditions or Safety Concerns. Sit to Stand (QC): 4 Chair/Lmr-qr-Abkuq Xfer(QC): 4 Car Transfer (QC): 4 close SBA, occasional cues for positioning or safety Weight Bearing Full Weight Bearing Full Weight Bearing Gait Training Distance: 120'x2 Walk 10 feet (QC): 4 Walk 50 ft with 2 Turns(QC): 4 Gait Assistive Device: FWW slow, occasional moments of unsteadiness but no LOB Exercises Standing: Hip Abduction, Hamstring curls, Heel/toe raises, Marching, Mini squats Standing Reps: 15 LAQ alternating for 3 min Treatments transfers, ambulation, LE strengthening Assessment Current Status: Fair Progress slowly improving balance and endurance during functional mobility PT Short Term Goals Short Term Goals Time Frame: May 07, 2020 Roll Left & Right: 6 Sit to lyin Lying to sitting on side of be: 6 Sit to stand: 4 Chair/mmf-ns-uehgr transfer: 4 Walk 10 feet: 4 Walk 50 feet with two turns: 4 Walk 150 feet: 4 PT Nursing Home Goals Equip Maint Eng Goals PT Equip Maint Eng Goals Time Frame: May 21, 2020 Roll Left & Right (QC): 6 Sit to Lying (QC): 6 Lying-Sitting on Side/Bed(QC): 6 Sit to Stand (QC): 6 Chair/Spj-fo-Wgbzs Xfer(QC): 6 Toilet Transfer (QC): 6 Car Transfer (QC): 6 Does the Patient Walk: Yes Walk 10 feet (QC): 6 Walk 50ft with 2 Turns (QC): 6 Walk 150 ft (QC): 6 Walking 10ft on Uneven Surface: 6 1 Step (curb) (QC): 4 4 Steps (QC): 4 12 Steps (QC): 88 Picking up an Object (QC): 5 Wheel 50 feet with 2 turns (QC: 9 Wheel 150 feet: 9 PT Plan Problem List Problem List: Activity Tolerance, Functional Strength, Safety, Balance, Gait, Transfer, Bed Mobility, ROM Treatment/Plan Treatment Plan: Continue Plan of Care Treatment Plan: Bed Mobility, Education, Functional Activity Vanesa, Functional Strength, Group Therapy, Gait, Safety, Therapeutic Exercise, Transfers Treatment Duration: May 21, 2020 Frequency: At least 5 of 7 days/Wk (IRF) Estimated Hrs Per Day: 1.5 hours per day Patient and/or Family Agrees t: Yes Safety Risks/Education Patient Education: Gait Training, Transfer Techniques, Correct Positioning, Safety Issues Teaching Recipient: Patient Teaching Methods: Demonstration, Discussion Response to Teaching: Reinforcement Needed Time/GCodes Time In: 1400 Time Out: 1430 Total Billed Treatment Time: 30 Total Billed Treatment 1 visit GT 10' EX 20' ELISABETH RODRIGUEZ PT May 03, 2020 14:31
[2020-05-03] MEDS ORDERED: amLODIPine 5 MG (NORVASC) TAB ONE (16:24)
--- NOTE | 2020-05-03 16:48 | Progress Note - Cardiology ---
Cardiology SOAP Progress Note Subjective: No cp or palp or syncope Gen weakness and malaise No n/v/d R-sided weakness as before Objective: I&O/Vital Signs 05/03/20 05/03/20 05/03/20 05/03/20 06:00 07:00 09:08 13:00 Temp 36.2 Pulse 81 87 73 Resp 17 B/P (MAP) 166/107 (126) Pulse Ox 96 94 O2 Delivery Room Air Room Air 05/03/20 00:00 Intake Total 960 ml Balance 960 ml Weight (Pounds): 195 Weight (Calculated Kilograms): 88.511197 Constitutional: AAO x 3, well-developed, well-nourished Cardiovascular: regular rate-rhythm Gastrointestional: No tender; soft, round, audible bowel sounds Extremities: no lower extremity edema bilateral Neurologic/Psychiatric: other (RUE and RLE 4/5) Skin: No rash on exposed areas, No ulcerations on exposed areas Results/Procedures: Labs Laboratory Tests 05/03/20 10:45: Glucometer 111H A/P: Assessment: 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 Add amlodipine Continue tele during hospitalization - if no evidence of arrhythmia, then advise implant of ILR to eval for arrhythmia Monitor lab TERRI BECKHAM MD FACP FAC CCDS May 03, 2020 16:48
[2020-05-03 17:07] VITALS: BP 184/91
[2020-05-03] MEDS: meTOproloL SUCCINATE 50 MG (TOPROL XL) TAB PO SCH (17:14)
[2020-05-03 20:58] VITALS: BP 164/91
[2020-05-03] MEDS: FENOFIBRATE 134 MG (LOFIBRA) CAPSULE PO SCH (21:00)
[2020-05-04 01:48] VITALS: BP 109/69
[2020-05-04] MEDS: LEVOTHYROXINE 112 MCG (LEVOTHROID) TAB PO SCH (05:55)
[2020-05-04] MEDS: CATHETER FLUSH 10 ML SYR IV SCH ×3 (05:56→20:32)
[2020-05-04 06:05] VITALS: BP 130/71
[2020-05-04] MEDS: ASPIRIN 325 MG (5 GR) TABLET PO SCH (08:23)
[2020-05-04] MEDS: amLODIPine 5 MG (NORVASC) TAB PO SCH (08:23)
[2020-05-04] MEDS: meTOprolol SUCCINATE 100 MG (TOPROL XL) TAB PO SCH (08:23)
[2020-05-04] MEDS: LORATADINE (CLARITIN) 10 MG TAB PO SCH (08:23)
[2020-05-04] MEDS: SENNA W/DOCUSATE (SENOKOT S) TABLET PO SCH ×2 (08:24→20:31)
[2020-05-04] MEDS: polyethylene glycoL POWDER 17 GM (MIRALAX) PACK PO SCH ×2 (08:24→20:32)
[2020-05-04] MEDS: DOCUSATE SODIUM 100 MG (COLACE) CAP PO SCH ×2 (08:24→20:32)
[2020-05-04] MEDS ORDERED: VITAMIN D3 25 MCG (1,000 UNITS) TABLET PO SCH (09:00)
--- NOTE | 2020-05-04 10:19 | Physical Therapy Daily Note ---
PT Daily Note-Current Subjective Agrees to Rx, feels she is making progress. Pain Location: No Pain Reported Mental Status Patient Orientation: Normal For Age Transfers SCALE: Activities may be completed with or without assistive devices. 2-Akhbxwfaxy-ewmhezw completes the activity by him/herself with no assistance from a helper. 5-Set-up or Clean-up Assistance-helper sets up or cleans up; patient completes activity. [place] assists only prior to or following the activity. 4-Supervision or Touching Assistance-helper provides verbal cues and/or touching/steadying and/or contact guard assistance as patient completes activity. Assistance may be provided throughout the activity or intermittently. 3-Partial/Moderate Assistance-helper does LESS THAN HALF the effort. [place] lifts, holds or supports trunk or limbs, but provides less than half the effort. 2-Substantial/Maximal Assistance-helper does MORE THAN HALF the effort. [place] lifts or holds trunk or limbs and provides more than half the effort. 0-Itkhhmdgj-rpduxr does ALL the effort. Patient does none of the effort to complete the activity. Or, the assistance of 2 or more helpers is required for the patient to complete the activity. If activity was not attempted, code reason: 7-Patient Refused. 9-Not Applicable-not attempted and the patient did not perform the activity before the current illness, exacerbation or injury. 10-Not Attempted due to Environmental Limitations-(lack of equipment, weather restraints, etc.). 88-Not Attempted due to Medical Conditions or Safety Concerns. all TRFs mod I Weight Bearing Full Weight Bearing Full Weight Bearing Gait Training Does the Patient Walk?: Yes Gait Assistive Device: FWW gait 200 ft CGA with right "foot scoot" noted, emphasis on heel strike on right as well as keeping broader ELY as pt is noted to heel toe and cross over several times with turns. This all improved with instruction and work Exercises NuStep Minutes: 8 NuStep Workload: 4 Treatments leg press exercises on nustep x12 Assessment Current Status: Good Progress PT Short Term Goals Short Term Goals Time Frame: May 07, 2020 Roll Left & Right: 6 Sit to lyin Lying to sitting on side of be: 6 Sit to stand: 4 Chair/lak-py-rxjny transfer: 4 Walk 10 feet: 4 Walk 50 feet with two turns: 4 Walk 150 feet: 4 PT Photo Mask Cleaner Goals Long-Term Goals PT Photo Mask Cleaner Goals Time Frame: May 21, 2020 Roll Left & Right (QC): 6 Sit to Lying (QC): 6 Lying-Sitting on Side/Bed(QC): 6 Sit to Stand (QC): 6 Chair/Ifu-dm-Njgcg Xfer(QC): 6 Toilet Transfer (QC): 6 Car Transfer (QC): 6 Does the Patient Walk: Yes Walk 10 feet (QC): 6 Walk 50ft with 2 Turns (QC): 6 Walk 150 ft (QC): 6 Walking 10ft on Uneven Surface: 6 1 Step (curb) (QC): 4 4 Steps (QC): 4 12 Steps (QC): 88 Picking up an Object (QC): 5 Wheel 50 feet with 2 turns (QC: 9 Wheel 150 feet: 9 PT Plan Treatment/Plan Treatment Plan: Continue Plan of Care Treatment Plan: Bed Mobility, Education, Functional Activity Vanesa, Functional Strength, Group Therapy, Gait, Safety, Therapeutic Exercise, Transfers Treatment Duration: May 21, 2020 Frequency: At least 5 of 7 days/Wk (IRF) Estimated Hrs Per Day: 1.5 hours per day Patient and/or Family Agrees t: Yes Safety Risks/Education Patient Education: Gait Training, Transfer Techniques, Correct Positioning, Disease Process, Safety Issues Teaching Recipient: Patient Teaching Methods: Demonstration, Discussion Response to Teaching: Verbalize Understanding, Return Demonstration, R einforcement Needed Time/GCodes Time In: 95 Time Out: 1010 Total Billed Treatment Time: 25 Total Billed Treatment 1,EX10m,GT15m JORGE ALBERTO MCKENNA AQUACULTURE DIRECTOR May 04, 2020 10:19
--- NOTE | 2020-05-04 11:48 | PM&R Progress Note ---
Subjective HPI/CC On Admission Date Seen by Provider: May 04, 2020 Time Seen by Provider: 12:30 Subjective/Events-last exam 05/04/20: No issues No falls No pain BP stable still modifying meds 05/03/20: Had a fall early this morning at 0500 when she was in bathroom with PCT at bedside today and I introduced myself BP still elevated and managed by Dr Reyes 05/02/20: Function has improved dramatically BP elevated still managed by Dr Reyes No pain reported Loop recorder discussed CPAP brought in from home 05/01/20: Pt doing pretty well BP 158/99 On telemetry Voiding okay after catheter removed Right arm is improved, was able to eat breakfast with her arm and hand Cardiology appreciated Review of Systems General: Fatigue, Malaise Neurological: Weakness, Incoordination Objective Exam Vital Signs Vital Signs Date Time Temp Pulse Resp B/P (MAP) Pulse Ox O2 Delivery O2 Flow Rate FiO2 05/05/20 05:23 36.4 83 18 115/58 (77) 18 NIV Bilevel Capillary Refill : General Appearance: No Apparent Distress, WD/WN, Chronically ill, Obese HEENT: PERRL/EOMI, Normal ENT Inspection, Pharynx Normal Neck: Full Range of Motion, Normal Inspection, Non Tender, Supple, Carotid Bruit Respiratory: Chest Non Tender, Lungs Clear, Normal Breath Sounds, No Accessory Muscle Use, No Respiratory Distress Cardiovascular: Regular Rate, Rhythm, No Edema, No Gallop, No JVD, No Murmur, Normal Peripheral Pulses Gastrointestinal: Normal Bowel Sounds, No Organomegaly, No Pulsatile Mass, Non Tender, Soft Back: Normal Inspection, No CVA Tenderness, No Vertebral Tenderness Extremity: Normal Capillary Refill, Normal Inspection, Normal Range of Motion, Non Tender, No Calf Tenderness, No Pedal Edema Neurologic/Psychiatric: Alert, Oriented x3, Normal Mood/Affect, Abnormal Gait, Motor Weakness (right upper extremity 3/5, right lower extremity 4/5) Skin: Normal Color, Warm/Dry Lymphatic: No Adenopathy Results/Procedures Lab Patient resulted labs reviewed. FIM Transfers Therapy Code Descriptions/Definitions Functional [place] Measure: 0=Not Assessed/NA 4=Minimal Assistance 1=Total Assistance 5=Supervision or Setup 2=Maximal Assistance 6=Modified [place] 3=Moderate Assistance 7=Complete IndependenceSCALE: Activities may be completed with or without assistive devices. 3-Svlcmropsg-lsuioxz completes the activity by him/herself with no assistance from a helper. 5-Set-up or Clean-up Assistance-helper sets up or cleans up; patient completes activity. [employer] assists only prior to or following the activity. 4-Supervision or Touching Assistance-helper provides verbal cues and/or touching/steadying and/or contact guard assistance as patient completes activity. Assistance may be provided throughout the activity or intermittently. 3-Partial/Moderate Assistance-helper does LESS THAN HALF the effort. [employer] lifts, holds or supports trunk or limbs, but provides less than half the effort. 2-Substantial/Maximal Assistance-helper does MORE THAN HALF the effort. [employer] lifts or holds trunk or limbs and provides more than half the effort. 8-Kfuxeweup-gcdsnq does ALL the effort. Patient does none of the effort to complete the activity. Or, the assistance of 2 or more helpers is required for the patient to complete the activity. If activity was not attempted, code reason: 7-Patient Refused. 9-Not Applicable-not attempted and the patient did not perform the activity before the current illness, exacerbation or injury. 10-Not Attempted due to Environmental Limitations-(lack of equipment, weather restraints, etc.). 88-Not Attempted due to Medical Conditions or Safety Concerns. Roll Left to Right (QC): 6 Sit to Lying (QC): 6 Sit to Stand (QC): 4 Chair/Bbj-mv-Ydehd Xfer(QC): 4 Car Transfer (QC): 4 Gait Training Does the Patient Walk?: Yes Distance: 120'x2 Walk 10 feet (QC): 4 Walk 50 ft with 2 Turns(QC): 4 Walk 150 ft (QC): 5 Walking 10ft/uneven surface-QC: 4 Gait Persons Needed: 1 Gait Assistive Device: FWW Wheelchair Training Does the Pt Use a Wheelchair?: No Wheel 50 ft with 2 turns (QC): 9 Wheel 150 ft (QC): 9 Stair Training #of Steps: 1 1 Step (curb) (QC): 4 4 Steps (QC): 88 12 Steps (QC): 88 Balance Picking up an Object (QC): 4 ADL-Treatment Eating (QC): 6 Oral Hygiene (QC): 4 (SUP at sink. ) Bathing Location: L Arm, R Arm, L Upper Leg, R Upper Leg, L Lower Leg (including foot), R Lower Leg (including foot), Chest, Abdomen, Buttocks, Perineal Area Shower/Bathe Self (QC): 4 (SBA in stance. Pt completes all showering in stance as does not have room for sc in shower, however, pt also states unable to install grab bars in shower (utilizes gbs 2x during session). ) Upper Body Dressing (QC): 6 (gathers bra and shirt. Dons with increased time (bra) and IND.) Lower Body Dressing (QC): 4 (SUP) On/Off Footwear (QC): 6 (IND with shoes.) Toileting Hygiene (QC): 6 (IND) Toilet Transfer (QC): 4 (SUP, use of walker on standard toilet.) Assessment/Plan Assessment and Plan Assess & Plan/Chief Complaint Assessment: CVA with right sided weakness HTN malignant type Hypothyroidism HLP Obesity SUBHA on CPAP Fall 05/03/20 at 0500 without injury Plan: IRF protocol Monitor BP Fall risk 05/01/20: Progressing rapidly Doing well Monitor BP Tely 05/02/20: CPAP Loop recorder? Monitor BP 05/03/20: Monitor for falls Monitor BP Monitor for pain 05/04/20: Continue therapy Monitor closely DC Wednesday (1) Acute CVA (cerebrovascular accident) Status: Acute (2) Hypertension Status: Acute SUSI BAR DO May 04, 2020 11:48
--- NOTE | 2020-05-04 15:53 | Progress Note - Cardiology ---
Cardiology SOAP Progress Note Subjective: No cp or palp or syncope or shortness of breath Weakness as before No n/v/d Objective: I&O/Vital Signs 05/04/20 05/04/20 05/04/20 05/04/20 06:05 07:00 09:13 12:47 Temp 36.1 Pulse 76 80 85 Resp 18 B/P (MAP) 130/71 (90) Pulse Ox 96 O2 Delivery NIV CPAP Room Air 05/04/20 00:00 Intake Total 1290 ml Balance 1290 ml Weight (Pounds): 195 Weight (Calculated Kilograms): 88.836882 Constitutional: AAO x 3, well-developed, well-nourished Cardiovascular: regular rate-rhythm Gastrointestional: No tender; soft, round, audible bowel sounds Extremities: no lower extremity edema bilateral Neurologic/Psychiatric: other (RUE and RLE 4/5) Skin: No rash on exposed areas, No ulcerations on exposed areas A/P: Assessment: 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
[2020-05-04 16:19] VITALS: BP 136/90
[2020-05-04] MEDS: meTOproloL SUCCINATE 50 MG (TOPROL XL) TAB PO SCH (17:08)
[2020-05-04 20:30] VITALS: BP 185/102
[2020-05-04] MEDS: FENOFIBRATE 134 MG (LOFIBRA) CAPSULE PO SCH (20:31)
[2020-05-04 22:14] VITALS: BP 143/70
[2020-05-05 05:23] VITALS: BP 115/58
[2020-05-05] MEDS: LEVOTHYROXINE 112 MCG (LEVOTHROID) TAB PO SCH (06:06)
[2020-05-05] MEDS: CATHETER FLUSH 10 ML SYR IV SCH ×3 (06:06→20:43)
[2020-05-05] MEDS: polyethylene glycoL POWDER 17 GM (MIRALAX) PACK PO SCH ×2 (08:22→20:42)
[2020-05-05] MEDS: meTOprolol SUCCINATE 100 MG (TOPROL XL) TAB PO SCH (08:22)
[2020-05-05] MEDS: ASPIRIN 325 MG (5 GR) TABLET PO SCH (08:22)
[2020-05-05] MEDS: SENNA W/DOCUSATE (SENOKOT S) TABLET PO SCH ×2 (08:22→20:42)
[2020-05-05] MEDS: DOCUSATE SODIUM 100 MG (COLACE) CAP PO SCH ×2 (08:22→20:42)
[2020-05-05] MEDS: amLODIPine 5 MG (NORVASC) TAB PO SCH (08:22)
[2020-05-05] MEDS: LORATADINE (CLARITIN) 10 MG TAB PO SCH (08:22)
[2020-05-05 08:23] VITALS: BP 138/76
--- NOTE | 2020-05-05 11:41 | PM&R Progress Note ---
Subjective HPI/CC On Admission Date Seen by Provider: May 05, 2020 Time Seen by Provider: 11:45 Subjective/Events-last exam 05/05/20: Feels like her right knee is bruised at bedside today Denies pain otherwise Checked meds and labs 05/04/20: No issues No falls No pain BP stable still modifying meds 05/03/20: Had a fall early this morning at 0500 when she was in bathroom with PCT at bedside today and I introduced myself BP still elevated and managed by Dr Reyes 05/02/20: Function has improved dramatically BP elevated still managed by Dr Reyes No pain reported Loop recorder discussed CPAP brought in from home 05/01/20: Pt doing pretty well BP 158/99 On telemetry Voiding okay after catheter removed Right arm is improved, was able to eat breakfast with her arm and hand Cardiology appreciated Review of Systems General: Fatigue, Malaise Neurological: Weakness, Incoordination Objective Exam Vital Signs Vital Signs Date Time Temp Pulse Resp B/P (MAP) Pulse Ox O2 Delivery O2 Flow Rate FiO2 05/05/20 12:27 77 05/05/20 09:11 Room Air 05/05/20 08:23 138/76 (96) 05/05/20 05:23 36.4 18 18 Capillary Refill : General Appearance: No Apparent Distress, WD/WN, Chronically ill, Obese HEENT: PERRL/EOMI, Normal ENT Inspection, Pharynx Normal Neck: Full Range of Motion, Normal Inspection, Non Tender, Supple, Carotid Bruit Respiratory: Chest Non Tender, Lungs Clear, Normal Breath Sounds, No Accessory Muscle Use, No Respiratory Distress Cardiovascular: Regular Rate, Rhythm, No Edema, No Gallop, No JVD, No Murmur, Normal Peripheral Pulses Gastrointestinal: Normal Bowel Sounds, No Organomegaly, No Pulsatile Mass, Non Tender, Soft Back: Normal Inspection, No CVA Tenderness, No Vertebral Tenderness Extremity: Normal Capillary Refill, Normal Inspection, Normal Range of Motion, Non Tender, No Calf Tenderness, No Pedal Edema Neurologic/Psychiatric: Alert, Oriented x3, Normal Mood/Affect, Abnormal Gait, Motor Weakness (right upper extremity 3/5, right lower extremity 4/5) Skin: Normal Color, Warm/Dry Lymphatic: No Adenopathy Results/Procedures Lab Patient resulted labs reviewed. FIM Transfers Therapy Code Descriptions/Definitions Functional [place] Measure: 0=Not Assessed/NA 4=Minimal Assistance 1=Total Assistance 5=Supervision or Setup 2=Maximal Assistance 6=Modified [place] 3=Moderate Assistance 7=Complete IndependenceSCALE: Activities may be completed with or without assistive devices. 7-Fwvfozizit-ijzmwpv completes the activity by him/herself with no assistance from a helper. 5-Set-up or Clean-up Assistance-helper sets up or cleans up; patient completes activity. [place] assists only prior to or following the activity. 4-Supervision or Touching Assistance-helper provides verbal cues and/or touching/steadying and/or contact guard assistance as patient completes activity. Assistance may be provided throughout the activity or intermittently. 3-Partial/Moderate Assistance-helper does LESS THAN HALF the effort. [place] lifts, holds or supports trunk or limbs, but provides less than half the effort. 2-Substantial/Maximal Assistance-helper does MORE THAN HALF the effort. [place] lifts or holds trunk or limbs and provides more than half the effort. 6-Zwzvkiwfr-bcrsjb does ALL the effort. Patient does none of the effort to complete the activity. Or, the assistance of 2 or more helpers is required for the patient to complete the activity. If activity was not attempted, code reason: 7-Patient Refused. 9-Not Applicable-not attempted and the patient did not perform the activity before the current illness, exacerbation or injury. 10-Not Attempted due to Environmental Limitations-(lack of equipment, weather restraints, etc.). 88-Not Attempted due to Medical Conditions or Safety Concerns. Roll Left to Right (QC): 6 Sit to Lying (QC): 6 Sit to Stand (QC): 4 Chair/Lry-hb-Tukbw Xfer(QC): 4 Car Transfer (QC): 4 Gait Training Does the Patient Walk?: Yes Distance: 120'x2 Walk 10 feet (QC): 4 Walk 50 ft with 2 Turns(QC): 4 Walk 150 ft (QC): 5 Walking 10ft/uneven surface-QC: 4 Gait Persons Needed: 1 Gait Assistive Device: FWW Wheelchair Training Does the Pt Use a Wheelchair?: No Wheel 50 ft with 2 turns (QC): 9 Wheel 150 ft (QC): 9 Stair Training #of Steps: 1 1 Step (curb) (QC): 4 4 Steps (QC): 88 12 Steps (QC): 88 Balance Picking up an Object (QC): 4 ADL-Treatment Eating (QC): 6 Oral Hygiene (QC): 4 (SUP at sink. ) Bathing Location: L Arm, R Arm, L Upper Leg, R Upper Leg, L Lower Leg (including foot), R Lower Leg (including foot), Chest, Abdomen, Buttocks, Perineal Area Shower/Bathe Self (QC): 4 (SBA in stance. Pt completes all showering in stance as does not have room for sc in shower, however, pt also states unable to install grab bars in shower (utilizes gbs 2x during session). ) Upper Body Dressing (QC): 6 (gathers bra and shirt. Dons with increased time (bra) and IND.) Lower Body Dressing (QC): 4 (SUP) On/Off Footwear (QC): 6 (IND with shoes.) Toileting Hygiene (QC): 6 (IND) Toilet Transfer (QC): 4 (SUP, use of walker on standard toilet.) Assessment/Plan Assessment and Plan Assess & Plan/Chief Complaint Assessment: CVA with right sided weakness HTN malignant type Hypothyroidism HLP Obesity SUBHA on CPAP Fall 05/03/20 at 0500 without injury Plan: IRF protocol Monitor BP Fall risk 05/01/20: Progressing rapidly Doing well Monitor BP Tely 05/02/20: CPAP Loop recorder? Monitor BP 05/03/20: Monitor for falls Monitor BP Monitor for pain 05/04/20: Continue therapy Monitor closely DC Wednesday05/05/20: Monitor right knee pain Checked labs in am BP monitored (1) Acute CVA (cerebrovascular accident) Status: Acute (2) Hypertension Status: Acute SUSI BAR DO May 05, 2020 11:41
--- NOTE | 2020-05-05 13:59 | Progress Note - Cardiology ---
Cardiology SOAP Progress Note Subjective: No cp or palp or syncope No shortness of breath at rest Gen malaise present No n/v/d Objective: I&O/Vital Signs 05/05/20 05/05/20 05/05/20 05/05/20 05:23 07:00 08:23 09:11 Temp 36.4 Pulse 83 84 84 Resp 18 B/P (MAP) 115/58 (77) 138/76 (96) Pulse Ox 18 O2 Delivery NIV Bilevel Room Air 05/05/20 12:27 Pulse 77 05/05/20 00:00 Intake Total 1342 ml Balance 1342 ml Weight (Pounds): 195 Weight (Calculated Kilograms): 88.161957 Constitutional: AAO x 3, well-developed, well-nourished Cardiovascular: regular rate-rhythm Gastrointestional: No tender; soft, round, audible bowel sounds Extremities: no lower extremity edema bilateral Neurologic/Psychiatric: other (RUE and RLE 4/5) Skin: No rash on exposed areas, No ulcerations on exposed areas A/P: Assessment: 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
[2020-05-05 17:01] VITALS: BP 147/75
[2020-05-05] MEDS: meTOproloL SUCCINATE 50 MG (TOPROL XL) TAB PO SCH (17:11)
[2020-05-05 20:41] VITALS: BP 140/82
[2020-05-05] MEDS: FENOFIBRATE 134 MG (LOFIBRA) CAPSULE PO SCH (20:42)
[2020-05-06] MEDS: LEVOTHYROXINE 112 MCG (LEVOTHROID) TAB PO SCH (05:39)
[2020-05-06] MEDS: CATHETER FLUSH 10 ML SYR IV SCH ×3 (05:39→20:54)
[2020-05-06 05:52] VITALS: BP 117/63
[2020-05-06 06:36] LABS: BASOPHILS % (AUTO) 0 % (0-10); EOSINOPHILS # (AUTO) 0.2 10^3/uL (0.0-0.3); EOSINOPHILS % (AUTO) 3 % (0-10); HEMATOCRIT 45 % (35-52); HEMOGLOBIN 14.4 g/dL (11.5-16.0); LYMPHOCYTES % (AUTO) 25 % (12-44); MEAN CORPUSCULAR HEMOGLOBIN 28 pg (25-34); MEAN CORPUSCULAR HGB CONC 32 g/dL (32-36); MEAN CORPUSCULAR VOLUME 89 fL (80-99); MEAN PLATELET VOLUME 12.1 fL (9.0-12.2); MONOCYTES # (AUTO) 0.8 10^3/uL (0.0-1.0); MONOCYTES % (AUTO) 9 % (0-12); NEUTROPHILS # (AUTO) 5.1 10^3/uL (1.8-7.8); NEUTROPHILS % (AUTO) 63 % (42-75); PLATELET COUNT 242 10^3/uL (130-400); WHITE BLOOD COUNT 8.2 10^3/uL (4.3-11.0)
[2020-05-06 06:52] LABS: ALBUMIN 3.8 GM/DL (3.2-4.5); POTASSIUM 4.3 MMOL/L (3.6-5.0)
[2020-05-06 06:53] LABS: CALCIUM 9.3 MG/DL (8.5-10.1)
[2020-05-06 06:54] LABS: TOTAL PROTEIN 6.9 GM/DL (6.4-8.2)
[2020-05-06 06:56] LABS: BILIRUBIN,TOTAL 0.3 MG/DL (0.1-1.0)
[2020-05-06 06:58] LABS: CREATININE SERUM 1.1 MG/DL (0.60-1.30)
--- NOTE | 2020-05-06 07:01 | PM&R Progress Note ---
Subjective HPI/CC On Admission Date Seen by Provider: May 06, 2020 Time Seen by Provider: 11:00 Subjective/Events-last exam 05/06/20: Patient doing well Loop recorder will be placed tomorrow morning DC planned BP still labile but improved 05/05/20: Feels like her right knee is bruised at bedside today Denies pain otherwise Checked meds and labs 05/04/20: No issues No falls No pain BP stable still modifying meds 05/03/20: Had a fall early this morning at 0500 when she was in bathroom with PCT at bedside today and I introduced myself BP still elevated and managed by Dr Reyes 05/02/20: Function has improved dramatically BP elevated still managed by Dr Reyes No pain reported Loop recorder discussed CPAP brought in from home 05/01/20: Pt doing pretty well BP 158/99 On telemetry Voiding okay after catheter removed Right arm is improved, was able to eat breakfast with her arm and hand Cardiology appreciated Review of Systems General: Fatigue Neurological: Weakness Objective Exam Vital Signs Vital Signs Date Time Temp Pulse Resp B/P (MAP) Pulse Ox O2 Delivery O2 Flow Rate FiO2 05/07/20 01:33 73 05/06/20 20:00 Room Air 05/06/20 17:32 36.6 16 134/73 (93) 98 Capillary Refill : General Appearance: No Apparent Distress, WD/WN, Chronically ill, Obese HEENT: PERRL/EOMI, Normal ENT Inspection, Pharynx Normal Neck: Full Range of Motion, Normal Inspection, Non Tender, Supple, Carotid Bruit Respiratory: Chest Non Tender, Lungs Clear, Normal Breath Sounds, No Accessory Muscle Use, No Respiratory Distress Cardiovascular: Regular Rate, Rhythm, No Edema, No Gallop, No JVD, No Murmur, Normal Peripheral Pulses Gastrointestinal: Normal Bowel Sounds, No Organomegaly, No Pulsatile Mass, Non Tender, Soft Back: Normal Inspection, No CVA Tenderness, No Vertebral Tenderness Extremity: Normal Capillary Refill, Normal Inspection, Normal Range of Motion, Non Tender, No Calf Tenderness, No Pedal Edema Neurologic/Psychiatric: Alert, Oriented x3, Normal Mood/Affect, Abnormal Gait, Motor Weakness (right upper extremity 3/5, right lower extremity 4/5) Skin: Normal Color, Warm/Dry Lymphatic: No Adenopathy Results/Procedures Lab Patient resulted labs reviewed. FIM Transfers Therapy Code Descriptions/Definitions Functional [place] Measure: 0=Not Assessed/NA 4=Minimal Assistance 1=Total Assistance 5=Supervision or Setup 2=Maximal Assistance 6=Modified [place] 3=Moderate Assistance 7=Complete IndependenceSCALE: Activities may be completed with or without assistive devices. 0-Ixerjbghfo-pjsgpen completes the activity by him/herself with no assistance from a helper. 5-Set-up or Clean-up Assistance-helper sets up or cleans up; patient completes activity. [place] assists only prior to or following the activity. 4-Supervision or Touching Assistance-helper provides verbal cues and/or sven omar/steadying and/or contact guard assistance as patient completes activity. Assistance may be provided throughout the activity or intermittently. 3-Partial/Moderate Assistance-helper does LESS THAN HALF the effort. [place] lifts, holds or supports trunk or limbs, but provides less than half the effort. 2-Substantial/Maximal Assistance-helper does MORE THAN HALF the effort. [place] lifts or holds trunk or limbs and provides more than half the effort. 0-Orygecehw-swevzx does ALL the effort. Patient does none of the effort to complete the activity. Or, the assistance of 2 or more helpers is required for the patient to complete the activity. If activity was not attempted, code reason: 7-Patient Refused. 9-Not Applicable-not attempted and the patient did not perform the activity before the current illness, exacerbation or injury. 10-Not Attempted due to Environmental Limitations-(lack of equipment, weather restraints, etc.). 88-Not Attempted due to Medical Conditions or Safety Concerns. Roll Left to Right (QC): 6 Sit to Lying (QC): 6 Sit to Stand (QC): 4 Chair/Orw-rf-Crptw Xfer(QC): 4 Car Transfer (QC): 4 Gait Training Does the Patient Walk?: Yes Distance: 120'x2 Walk 10 feet (QC): 4 Walk 50 ft with 2 Turns(QC): 4 Walk 150 ft (QC): 5 Walking 10ft/uneven surface-QC: 4 Gait Persons Needed: 1 Gait Assistive Device: FWW Wheelchair Training Does the Pt Use a Wheelchair?: No Wheel 50 ft with 2 turns (QC): 9 Wheel 150 ft (QC): 9 Stair Training #of Steps: 1 1 Step (curb) (QC): 4 4 Steps (QC): 88 12 Steps (QC): 88 Balance Picking up an Object (QC): 4 ADL-Treatment Eating (QC): 6 Oral Hygiene (QC): 4 (SUP at sink. ) Bathing Location: L Arm, R Arm, L Upper Leg, R Upper Leg, L Lower Leg (in cluding foot), R Lower Leg (including foot), Chest, Abdomen, Buttocks, Perineal Area Shower/Bathe Self (QC): 4 (SBA in stance. Pt completes all showering in stance as does not have room for sc in shower, however, pt also states unable to install grab bars in shower (utilizes gbs 2x during session). ) Upper Body Dressing (QC): 6 (gathers bra and shirt. Dons with increased time (bra) and IND.) Lower Body Dressing (QC): 4 (SUP) On/Off Footwear (QC): 6 (IND with shoes.) Toileting Hygiene (QC): 6 (IND) Toilet Transfer (QC): 4 (SUP, use of walker on standard toilet.) Assessment/Plan Assessment and Plan Assess & Plan/Chief Complaint Assessment: CVA with right sided weakness cryptogenic type loop recorder placed 05/07/20 HTN malignant type Hypothyroidism HLP Obesity SUBHA on CPAP Fall 05/03/20 at 0500 without injury Plan: IRF protocol Monitor BP Fall risk 05/01/20: Progressing rapidly Doing well Monitor BP Tely 05/02/20: CPAP Loop recorder? Monitor BP 05/03/20: Monitor for falls Monitor BP Monitor for pain 05/04/20: Continue therapy Monitor closely DC Wednesday05/05/20: Monitor right knee pain Checked labs in am BP monitored 05/06/20: DC planned tomorrow after loop recorder (1) Acute CVA (cerebrovascular accident) Status: Acute (2) Hypertension Status: Acute SUSI BAR DO May 06, 2020 07:00
[2020-05-06] MEDS: amLODIPine 5 MG (NORVASC) TAB PO SCH (07:58)
[2020-05-06] MEDS: polyethylene glycoL POWDER 17 GM (MIRALAX) PACK PO SCH ×2 (07:58→20:55)
[2020-05-06] MEDS: LORATADINE (CLARITIN) 10 MG TAB PO SCH (07:58)
[2020-05-06] MEDS: SENNA W/DOCUSATE (SENOKOT S) TABLET PO SCH ×2 (07:58→20:55)
[2020-05-06] MEDS: DOCUSATE SODIUM 100 MG (COLACE) CAP PO SCH ×2 (07:58→20:55)
[2020-05-06] MEDS: meTOprolol SUCCINATE 100 MG (TOPROL XL) TAB PO SCH (07:58)
[2020-05-06] MEDS: ASPIRIN 325 MG (5 GR) TABLET PO SCH (07:58)
--- NOTE | 2020-05-06 09:19 | Occupational Ther Daily Note ---
OT Current Status-Daily Note Subjective [id number]: Pt AxO. Denies pain. States good weekend. Ready to d/c when possible. Pt is asked to think about different limitations/ barriers to overcome in the home. Pt states son has installed gbs in shower/ outside of shower. Pt states she is unable to reach the upper shelves, however, will have grandson complete rather than use step stool. Pt has good safety awareness/ fair endurance and balance. OT/ PT discuss pt's status, decide up ad chelsea appropriate during day. Written on board/ pt educated on status. [id number]: Pt AxO, agrees to tx. Mental Status/Objective Patient Orientation: Person, Place, Situation, Normal For Age Attachments: Telemetry ADL-Treatment Therapy Code Descriptions/Definitions Functional [place] Measure: 0=Not Assessed/NA 4=Minimal Assistance 1=Total Assistance 5=Supervision or Setup 2=Maximal Assistance 6=Modified [place] 3=Moderate Assistance 7=Complete IndependenceSCALE: Activities may be completed with or without assistive devices. 4-Eoyfbojkfd-svbdlod completes the activity by him/herself with no assistance from a helper. 5-Set-up or Clean-up Assistance-helper sets up or cleans up; patient completes activity. [place] assists only prior to or following the activity. 4-Supervision or Touching Assistance-helper provides verbal cues and/or touching/steadying and/or contact guard assistance as patient completes activity. Assistance may be provided throughout the activity or intermittently. 3-Partial/Moderate Assistance-helper does LESS THAN HALF the effort. [place] lifts, holds or supports trunk or limbs, but provides less than half the effort. 2-Substantial/Maximal Assistance-helper does MORE THAN HALF the effort. [place] lifts or holds trunk or limbs and provides more than half the effort. 9-Bauqqizps-hkymes does ALL the effort. Patient does none of the effort to complete the activity. Or, the assistance of 2 or more helpers is required for the patient to complete the activity. If activity was not attempted, code reason: 7-Patient Refused. 9-Not Applicable-not attempted and the patient did not perform the activity before the current illness, exacerbation or injury. 10-Not Attempted due to Environmental Limitations-(lack of equipment, weather restraints, etc.). 88-Not Attempted due to Medical Conditions or Safety Concerns. Eating (QC): 6 Oral Hygiene (QC): 6 Shower/Bathe Self (QC): 4 (denies, though through conversation pt able to state she completed last night with SUP.) Upper Body Dressing (QC): 5 (s/u per pt) Lower Body Dressing (QC): 5 (s/u and pt completes in sit/ fair+ balance in stance to extractor puller hips. ) On/Off Footwear: 6 (IND) Toileting Hygiene (QC): 6 (IND on toilet.) Toilet Transfer (QC): 4 (SBA during transfer, completes with use of walker only.) Other Treatment Pt completes toileting/ dressing as outlined. Denies showering, though per report is SUP. Pt completes ambulation 2x through bauer with one rest break. Pt stands at arm bike, completing dynamic standing/ UE unsupported on walker with mod resistance. 3 rest breaks with 15 minute interval. Good balance. Pt completes reaching arm arc task with BUE overhead to meet at midline- good ability, no LOB, good safety. Returns to room, all needs met, slightly SOB due to ambulation/ standing tasks. Educated on PT entry at 9, all needs met. Pt ambulates to laundry. Pt completes taking clothes from dryer and folds, standing ~10 min with no UE support on walker. No LOB. Pt ambulates to gym, completing UB/ balance tasks with no LOB, slight fatigue. Returns to room, completes toileting with all needs met. Education OT Patient Education: Correct positioning, Exercise program, Progress toward Goal/Update tx plan, Purpose of tx/functional activities Teaching Recipient: Patient Teaching Methods: Demonstration, Discussion Response to Teaching: Verbalize Understanding, Return Demonstration OT Short Term Goals Short Term Goals Toileting hygiene: 5 Shower/bathe self: 5 Upper body dressin Lower body dressin Putting on/taking off footwear: 4 OT Hydraulic Chair Assembler Goals Hydraulic Chair Assembler Goals Time Frame: May 14, 2020 Eating (QC): 6 Oral Hygiene (QC): 6 Toileting Hygiene (QC): 6 Shower/Bathe Self (QC): 6 Upper Body Dressing (QC): 6 Lower Body Dressing (QC): 6 On/Off Footwear (QC): 6 Additional Goals: 1-Demonstrate ADL Tasks, 2-Verbalize Understanding, 3- ImproveStrength/Vanesa 1=Demonstrate adherence to instructed precautions during ADL tasks. 2=Patient will verbalize/demonstrate understanding of assistive devices/mo difications for ADL. 3=Patient will improve strength/tolerance for activity to enable patient to perform ADL's. OT Education/Plan Problem List/Assessment Assessment: Decreased Activ Tolerance, Decreased UE Strength, Impaired I ADL's, Impaired Self-Care Skills Discharge Recommendations Plan/Recommendations: Continue POC Therapy Discharge Recommendati: Home & Family Treatment Plan/Plan of Care Treatment,Training & Education: Yes Patient would benefit from OT for education, treatment and training to promote independence in ADL's, mobility, safety and/or upper extremity function for ADL's. Plan of Care: ADL Retraining, Caregiver Training, Concurrent Therapy, Functional Mobility, Group Exercise/Act as Ind, Orthotic Fitting/Training, UE Funct Exercise/Act, UE Neuromus Re-Ed/Coord Treatment Duration: May 14, 2020 Frequency: At least 5 of 7 days/Wk (IRF) Estimated Hrs Per Day: 1.5 hours per day Agreement: Yes Rehab Potential: Fair Time/GCodes Start Time: 08:00 (1140) Stop Time: 09:00 (1210) Total Time Billed (hr/min): 90 Billed Treatment Time 1, ADL, EX 3= 60 1, FA, EX = 30 KANG ODONNELL OTR May 06, 2020 09:19
--- NOTE | 2020-05-06 11:05 | Physical Therapy Daily Note ---
PT Daily Note-Current Subjective Pt. just finishing with OT, states she is tired but agrees to PT. States she may be going home in the next day or 2. Transfers SCALE: Activities may be completed with or without assistive devices. 5-Grnzqfiifg-jopcsgz completes the activity by him/herself with no assistance from a helper. 5-Set-up or Clean-up Assistance-helper sets up or cleans up; patient completes activity. [place] assists only prior to or following the activity. 4-Supervision or Touching Assistance-helper provides verbal cues and/or touching/steadying and/or contact guard assistance as patient completes activity. Assistance may be provided throughout the activity or intermittently. 3-Partial/Moderate Assistance-helper does LESS THAN HALF the effort. [place] lifts, holds or supports trunk or limbs, but provides less than half the effort. 2-Substantial/Maximal Assistance-helper does MORE THAN HALF the effort. [place] lifts or holds trunk or limbs and provides more than half the effort. 8-Irorwxljp-izhtod does ALL the effort. Patient does none of the effort to complete the activity. Or, the assistance of 2 or more helpers is required for the patient to complete the activity. If activity was not attempted, code reason: 7-Patient Refused. 9-Not Applicable-not attempted and the patient did not perform the activity before the current illness, exacerbation or injury. 10-Not Attempted due to Environmental Limitations-(lack of equipment, weather restraints, etc.). 88-Not Attempted due to Medical Conditions or Safety Concerns. Sit to Stand (QC): 6 Weight Bearing Full Weight Bearing Full Weight Bearing Gait Training Does the Patient Walk?: Yes Distance: x60 ft, x 250 ft Walk 150 ft (QC): 4 Gait Persons Needed: 1 Gait Assistive Device: FWW SBA only, close to mod (I) Exercises Seated Therapy Exercises: Ankle pumps, Sit to stand (10), Long arc quads, Hip flexion Seated Reps: 20 Standing: Hip Abduction, Heel/toe raises, Marching, Side steps Standing Reps: 15 NuStep Minutes: 15 NuStep Workload: 4 Treatments gait and LE exercises Assessment Current Status: Good Progress Pt. does very well with strengthening exercises and had no losses of balance during gait. Pt. is progressing very well with therapy but does fatigue throughout session and needs several brief rest periods. Pt. returned to bedside chair post session, call light in reach and all needs met. PT Short Term Goals Short Term Goals Time Frame: May 07, 2020 Roll Left & Right: 6 Sit to lyin Lying to sitting on side of be: 6 Sit to stand: 4 Chair/aoa-bw-acjjn transfer: 4 Walk 10 feet: 4 Walk 50 feet with two turns: 4 Walk 150 feet: 4 PT Patient Service Coordinator Goals Fpc Goals PT Fpc Goals Time Frame: May 21, 2020 Roll Left & Right (QC): 6 Sit to Lying (QC): 6 Lying-Sitting on Side/Bed(QC): 6 Sit to Stand (QC): 6 Chair/Ing-sk-Ksxal Xfer(QC): 6 Toilet Transfer (QC): 6 Car Transfer (QC): 6 Does the Patient Walk: Yes Walk 10 feet (QC): 6 Walk 50ft with 2 Turns (QC): 6 Walk 150 ft (QC): 6 Walking 10ft on Uneven Surface: 6 1 Step (curb) (QC): 4 4 Steps (QC): 4 12 Steps (QC): 88 Picking up an Object (QC): 5 Wheel 50 feet with 2 turns (QC: 9 Wheel 150 feet: 9 PT Plan Treatment/Plan Treatment Plan: Continue Plan of Care Treatment Plan: Bed Mobility, Education, Functional Activity Vanesa, Functional Strength, Group Therapy, Gait, Safety, Therapeutic Exercise, Transfers Treatment Duration: May 21, 2020 Frequency: At least 5 of 7 days/Wk (IRF) Estimated Hrs Per Day: 1.5 hours per day Patient and/or Family Agrees t: Yes Time/GCodes Time In: 0900 Time Out: 1000 Total Billed Treatment Time: 60 Total Billed Treatment 1, Ex 50', GT 10' PRATIMA CAMPOS PT May 06, 2020 11:05
--- NOTE | 2020-05-06 11:09 | Progress Note - Cardiology ---
Cardiology SOAP Progress Note Subjective: Sitting up in chair at the bedside States she feels good this morning No c/o CP, SOB or palpitations Feels she is getting stronger Objective: I&O/Vital Signs Weight (Pounds): 195 Weight (Calculated Kilograms): 88.007662 Constitutional: AAO x 3, well-developed, well-nourished Cardiovascular: regular rate-rhythm Gastrointestional: No tender; soft, round, audible bowel sounds Extremities: no lower extremity edema bilateral Neurologic/Psychiatric: other (RUE and RLE 4/5) Skin: No rash on exposed areas, No ulcerations on exposed areas Results/Procedures: Labs Microbiology 05/06/20 MRSA Screen - Final, Complete MRSA not isolated A/P: Assessment: 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
--- NOTE | 2020-05-06 11:46 | Physical Therapy Daily Note ---
PT Daily Note-Current Subjective Patient agrees to PT. She reports she hope to go home tomorrow. Mental Status Patient Orientation: Normal For Age Transfers SCALE: Activities may be completed with or without assistive devices. 1-Vhktivurzo-yxgqxms completes the activity by him/herself with no assistance from a helper. 5-Set-up or Clean-up Assistance-helper sets up or cleans up; patient completes activity. [place] assists only prior to or following the activity. 4-Supervision or Touching Assistance-helper provides verbal cues and/or touching/steadying and/or contact guard assistance as patient completes activity. Assistance may be provided throughout the activity or intermittently. 3-Partial/Moderate Assistance-helper does LESS THAN HALF the effort. [place] lifts, holds or supports trunk or limbs, but provides less than half the effort. 2-Substantial/Maximal Assistance-helper does MORE THAN HALF the effort. [place] lifts or holds trunk or limbs and provides more than half the effort. 2-Fgtnqpcbe-gctnre does ALL the effort. Patient does none of the effort to complete the activity. Or, the assistance of 2 or more helpers is required for the patient to complete the activity. If activity was not attempted, code reason: 7-Patient Refused. 9-Not Applicable-not attempted and the patient did not perform the activity before the current illness, exacerbation or injury. 10-Not Attempted due to Environmental Limitations-(lack of equipment, weather restraints, etc.). 88-Not Attempted due to Medical Conditions or Safety Concerns. Roll Left & Right (QC): 6 Sit to Lying (QC): 6 Lying to Sitting/Side of Bed(Q: 6 Sit to Stand (QC): 6 Chair/Pex-ta-Ljhws Xfer(QC): 6 Toilet Transfer (QC): 6 Car Transfer (QC): 6 patient instructed to be up ad [place] in room during the day to trial independent safety prior to dismissal Weight Bearing Full Weight Bearing Full Weight Bearing Gait Training Does the Patient Walk?: Yes Distance: 150' x 2/500' Walk 10 feet (QC): 5 Walk 50 ft with 2 Turns(QC): 5 Walk 150 ft (QC): 5 Walking 10ft/uneven surface-QC: 5 Gait Assistive Device: FWW functional gait sequence/slight right LE lag Wheelchair Training Does the Pt Use a Wheelchair?: No Stair Training Stair Training: Handrails/: 2 handrails #of Steps: 12 1 Step (curb) (QC): 5 4 Steps (QC): 5 12 Steps (QC): 5 Stairs: Pattern: Step to Balance Picking up an Object (QC): 6 (seated position) Exercises NuStep Minutes: 12 NuStep Workload: 3 (to improve endurance and mobility) Assessment Patient tolerated treatment well and understands to be up ad chel[place] in room during the day. Patient has attained functional goals (refer to LTG for specifics) PT Short Term Goals Short Term Goals Time Frame: May 07, 2020 Roll Left & Right: 6 Sit to lyin Lying to sitting on side of be: 6 Sit to stand: 4 Chair/dag-ny-hxlcr transfer: 4 Walk 10 feet: 4 Walk 50 feet with two turns: 4 Walk 150 feet: 4 PT Intermediate Goals Finance Associate Goals PT Intermediate Goals Time Frame: May 21, 2020 Roll Left & Right (QC): 6 (met 05/06/20) Sit to Lying (QC): 6 (met 05/06/20) Lying-Sitting on Side/Bed(QC): 6 (met 05/06/20) Sit to Stand (QC): 6 (met 05/06/20) Chair/Zoq-cq-Vodhr Xfer(QC): 6 (met 05/06/20) Toilet Transfer (QC): 6 (met 05/06/20) Car Transfer (QC): 6 (met 05/06/20) Does the Patient Walk: Yes Walk 10 feet (QC): 6 Walk 50ft with 2 Turns (QC): 6 Walk 150 ft (QC): 6 Walking 10ft on Uneven Surface: 6 1 Step (curb) (QC): 4 (met 05/06/20) 4 Steps (QC): 4 (met 05/06/20) 12 Steps (QC): 88 (patient performed 05/06/20) Picking up an Object (QC): 5 (met 05/06/20) Wheel 50 feet with 2 turns (QC: 9 Wheel 150 feet: 9 PT Plan Treatment/Plan Treatment Plan: Continue Plan of Care Treatment Plan: Bed Mobility, Education, Functional Activity Vanesa, Functional Strength, Group Therapy, Gait, Safety, Therapeutic Exercise, Transfers Treatment Duration: May 21, 2020 Frequency: At least 5 of 7 days/Wk (IRF) Estimated Hrs Per Day: 1.5 hours per day Patient and/or Family Agrees t: Yes Time/GCodes Time In: 1110 Time Out: 1140 Total Billed Treatment Time: 30 Total Billed Treatment 1 visit EX 12 min FA 18 min JOHN ZAMORA PT May 06, 2020 11:46
[2020-05-06 13:30] VITALS: BP 141/76
--- NOTE | 2020-05-06 17:04 | Progress Note - Cardiology ---
Cardiology SOAP Progress Note Subjective: Gen malaise and weakness, improved No cp or palp or syncope or shortness of breath at rest No n/v/d Objective: I&O/Vital Signs 05/06/20 05/06/20 05/06/20 05/06/20 05:52 06:28 09:00 12:40 Temp 36.2 Pulse 77 71 93 Resp 16 B/P (MAP) 117/63 (81) Pulse Ox 95 O2 Delivery Room Air Room Air 05/06/20 13:30 Pulse 79 B/P (MAP) 141/76 (97) 05/06/20 00:00 Intake Total 1400 ml Balance 1400 ml Weight (Pounds): 195 Weight (Calculated Kilograms): 88.270422 Constitutional: AAO x 3, well-developed, well-nourished Cardiovascular: regular rate-rhythm Gastrointestional: No tender; soft, round, audible bowel sounds Extremities: no lower extremity edema bilateral Neurologic/Psychiatric: other (RUE and RLE 4/5) Skin: No rash on exposed areas, No ulcerations on exposed areas Results/Procedures: Labs Laboratory Tests 05/06/20 05:35: White Blood Count 8.2, Red Blood Count 5.10, Hemoglobin 14.4, Hematocrit 45, Mean Corpuscular Volume 89, Mean Corpuscular Hemoglobin 28, Mean Corpuscular Hemoglobin Concent 32, Red Cell Distribution Width 12.9, Platelet Count 242, Mean Platelet Volume 12.1, Immature Granulocyte % (Auto) 0, Neutrophils (%) (Auto) 63, Lymphocytes (%) (Auto) 25, Monocytes (%) (Auto) 9, Eosinophils (%) (Auto) 3, Basophils (%) (Auto) 0, Neutrophils # (Auto) 5.1, Lymphocytes # (Auto) 2.0, Monocytes # (Auto) 0.8, Eosinophils # (Auto) 0.2, Basophils # (Auto) 0.0, Immature Granulocyte # (Auto) 0.0, Sodium Level 140, Potassium Level 4.3, Chloride Level 109H, Carbon Dioxide Level 21, Anion Gap 10, Blood Urea Nitrogen 20H, Creatinine 1.10, Estimat Glomerular Filtration Rate 49, BUN/Creatinine Ratio 18, Glucose Level 128H, Calcium Level 9.3, Corrected Calcium 9.5, Total Bilirubin 0.3, Aspartate Amino Transf (AST/SGOT) 29, Alanine Aminotransferase (ALT/SGPT) 51, Alkaline Phosphatase 73, Total Protein 6.9, Albumin 3.8 Laboratory Tests 05/06/20 05:35 A/P: Assessment: 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
[2020-05-06] MEDS: meTOproloL SUCCINATE 50 MG (TOPROL XL) TAB PO SCH (17:18)
[2020-05-06 17:32] VITALS: BP 134/73
[2020-05-06] MEDS: FENOFIBRATE 134 MG (LOFIBRA) CAPSULE PO SCH (20:53)
[2020-05-07 06:00] VITALS: BP 143/86
[2020-05-07] MEDS: LEVOTHYROXINE 112 MCG (LEVOTHROID) TAB PO SCH (06:28)
[2020-05-07] MEDS: CATHETER FLUSH 10 ML SYR IV SCH (06:28)
[2020-05-07] MEDS ORDERED: ATOR40TA PO (06:43)
[2020-05-07] MEDS ORDERED: METO50TA7 PO (06:43)
[2020-05-07] MEDS ORDERED: AMLO-250 PO (06:43)
[2020-05-07] MEDS ORDERED: ASPI-808 PO (06:43)
[2020-05-07] MEDS ORDERED: MTP100TCR PO (06:43)
--- NOTE | 2020-05-07 06:44 | D/C HH Face to Face Order ---
D/C Face to Face Orders Reconcile Patient Problems Problems Reviewed?: Yes Instructions for Patient Home Health Patient Instructions/FollowUp: Dr Hood 1 week Physician to follow Patient: Erwin Discharge Diet for Home: Cardiac Diet Patient Problems: CVA HTN Patient Data-Allergies,Ht & Wt Patient Allergies: Coded Allergies: Fish Containing Products (Unverified Allergy, Unknown, Rash, 05/01/20) adhesive tape (Verified Allergy, Unknown, HIVES, 12/11/14) cheese (Unverified Allergy, Unknown, Rash, 05/01/20) peanut (Unverified Allergy, Unknown, Rash, 05/01/20) Height (Feet): 5 Height (Inches): 0.00 Weight (Pounds): 195 Home Health Need/Face to Face Date of Face to Face: May 07, 2020 Clinical Findings: Generalized weakness and fatigue, Instability, Muscle weakness, Unsteady gait I have seen Pt gijb-iw-brto: Yes Discharged To: Home Diagnosis/Conditions: CVA Patient is Homebound due to: Joe fall risk due to instabilty, Muscle weakness Homebound Status Due to the above stated illness, injury or surgical procedure (medical condition or diagnosis) and associated clinical findings, the patient is homebound because of his/her inability to leave home except with aid of a supportive device and/or person AND leaving the home requires a considerable and taxing effort or is medically contraindicated. Pt req the following assistanc: Walker Home Health Nursing Orders Home Health Services Order: Nursing Services (BP monitoring), Slot Shift Supervisor-Evaluate & Treat, Physical Therapy-Evaluate & Treat Certify Stmt I certify that this patient is under my care and that I, a nurse practitioner or a physician; a phys assistant working with me, had a face to face encounter that - meets the physician face to face encounter requirements with this patient as dated. SUSI BAR DO May 07, 2020 06:44
--- NOTE | 2020-05-07 06:48 | Discharge Summary ---
Diagnosis/Chief Complaint Date of Admission Apr 30, 2020 at 11:20 Date of Discharge Discharge Date: May 07, 2020 Discharge Diagnosis CVA HTN Discharge Summary Discharge Physical Examination Allergies: Coded Allergies: Fish Containing Products (Unverified Allergy, Unknown, Rash, 05/01/20) adhesive tape (Verified Allergy, Unknown, HIVES, 12/11/14) cheese (Unverified Allergy, Unknown, Rash, 05/01/20) peanut (Unverified Allergy, Unknown, Rash, 05/01/20) Vitals & I&Os Vital Signs Date Time Temp Pulse Resp B/P (MAP) Pulse Ox O2 Delivery O2 Flow Rate FiO2 05/07/20 15:07 36.2 77 18 143/86 95 Room Air General Appearance: Alert, Oriented X3, Cooperative Respiratory: Clear to Auscultation Cardiovascular: Regular Rate Neuro: Normal Gait Psych/Mental Status: Mental Status NL Hospital Course Was the Problem List Reviewed?: Yes Standard course after admitted from 4th floor after CVA. Participated with all therapies. BP elevation was managed by Dr Reyes. Loop recorder placed prior to DC. Overall she was able to regain function and use walker and become i ndependent with ADL's and was DC in improved condition. Labs (last 24 hrs) Laboratory Tests 05/01/20 04:35: White Blood Count 8.4, Red Blood Count 4.85, Hemoglobin 13.7, Hematocrit 43, Mean Corpuscular Volume 88, Mean Corpuscular Hemoglobin 28, Mean Corpuscular Hemoglobin Concent 32, Red Cell Distribution Width 13.2, Platelet Count 217, Mean Platelet Volume 12.3H, Immature Granulocyte % (Auto) 0, Neutrophils (%) (Auto) 56, Lymphocytes (%) (Auto) 29, Monocytes (%) (Auto) 12, Eosinophils (%) (Auto) 3, Basophils (%) (Auto) 0, Neutrophils # (Auto) 4.7, Lymphocytes # (Auto) 2.4, Monocytes # (Auto) 1.0, Eosinophils # (Auto) 0.2, Basophils # (Auto) 0.0, Immature Granulocyte # (Auto) 0.0, Sodium Level 141, Potassium Level 3.9, Chloride Level 110H, Carbon Dioxide Level 21, Anion Gap 10, Blood Urea Nitrogen 18, Creatinine 1.02, Estimat Glomerular Filtration Rate 54, BUN/Creatinine Ratio 18, Glucose Level 136H, Calcium Level 8.9, Corrected Calcium 9.2, Total Bilirubin 0.3, Aspartate Amino Transf (AST/SGOT) 26, Alanine Aminotransferase (ALT/SGPT) 42, Alkaline Phosphatase 71, Total Protein 6.2L, Albumin 3.6 05/01/20 11:00: Glucometer 103 05/03/20 10:45: Glucometer 111H 05/06/20 05:35: White Blood Count 8.2, Red Blood Count 5.10, Hemoglobin 14.4, Hematocrit 45, Mean Corpuscular Volume 89, Mean Corpuscular Hemoglobin 28, Mean Corpuscular Hemoglobin Concent 32, Red Cell Distribution Width 12.9, Platelet Count 242, Mean Platelet Volume 12.1, Immature Granulocyte % (Auto) 0, Neutrophils (%) (Auto) 63, Lymphocytes (%) (Auto) 25, Monocytes (%) (Auto) 9, Eosinophils (%) (Auto) 3, Basophils (%) (Auto) 0, Neutrophils # (Auto) 5.1, Lymphocytes # (Auto) 2.0, Monocytes # (Auto) 0.8, Eosinophils # (Auto) 0.2, Basophils # (Auto) 0.0, Immature Granulocyte # (Auto) 0.0, Sodium Level 140, Potassium Level 4.3, Chloride Level 109H, Carbon Dioxide Level 21, Anion Gap 10, Blood Urea Nitrogen 20H, Creatinine 1.10, Estimat Glomerular Filtration Rate 49, BUN/Creatinine Ratio 18, Glucose Level 128H, Calcium Level 9.3, Corrected Calcium 9.5, Total Bilirubin 0.3, Aspartate Amino Transf (AST/SGOT) 29, Alanine Aminotransferase (ALT/SGPT) 51, Alkaline Phosphatase 73, Total Protein 6.9, Albumin 3.8 Microbiology 05/06/20 MRSA Screen - Final, Complete MRSA not isolated Pending Labs Microbiology Date/Time Source Procedure Growth Status 05/06/20 18:45 Nasal MRSA Screen - Final MRSA not isolated Complete Laboratory Tests 05/01/20 04:35: White Blood Count 8.4, Red Blood Count 4.85, Hemoglobin 13.7, Hematocrit 43, Mean Corpuscular Volume 88, Mean Corpuscular Hemoglobin 28, Mean Corpuscular Hemoglobin Concent 32, Red Cell Distribution Width 13.2, Platelet Count 217, Mean Platelet Volume 12.3, Immature Granulocyte % (Auto) 0, Neutrophils (%) (Auto) 56, Lymphocytes (%) (Auto) 29, Monocytes (%) (Auto) 12, Eosinophils (%) (Auto) 3, Basophils (%) (Auto) 0, Neutrophils # (Auto) 4.7, Lymphocytes # (Auto) 2.4, Monocytes # (Auto) 1.0, Eosinophils # (Auto) 0.2, Basophils # (Auto) 0.0, Immature Granulocyte # (Auto) 0.0, Sodium Level 141, Potassium Level 3.9, Chloride Level 110, Carbon Dioxide Level 21, Anion Gap 10, Blood Urea Nitrogen 18, Creatinine 1.02, Estimat Glomerular Filtration Rate 54, BUN/Creatinine Ratio 18, Glucose Level 136, Calcium Level 8.9, Corrected Calcium 9.2, Total Bilirubin 0.3, Aspartate Amino Transf (AST/SGOT) 26, Alanine Aminotransferase (ALT/SGPT) 42, Alkaline Phosphatase 71, Total Protein 6.2, Albumin 3.6 05/01/20 11:00: Glucometer 103 05/03/20 10:45: Glucometer 111 05/06/20 05:35: White Blood Count 8.2, Red Blood Count 5.10, Hemoglobin 14.4, Hematocrit 45, Mean Corpuscular Volume 89, Mean Corpuscular Hemoglobin 28, Mean Corpuscular Hemoglobin Concent 32, Red Cell Distribution Width 12.9, Platelet Count 242, Mean Platelet Volume 12.1, Immature Granulocyte % (Auto) 0, Neutrophils (%) (Auto) 63, Lymphocytes (%) (Auto) 25, Monocytes (%) (Auto) 9, Eosinophils (%) (Auto) 3, Basophils (%) (Auto) 0, Neutrophils # (Auto) 5.1, Lymphocytes # (Auto) 2.0, Monocytes # (Auto) 0.8, Eosinophils # (Auto) 0.2, Basophils # (Auto) 0.0, Immature Granulocyte # (Auto) 0.0, Sodium Level 140, Potassium Level 4.3, Chloride Level 109, Carbon Dioxide Level 21, Anion Gap 10, Blood Urea Nitrogen 20, Creatinine 1.10, Estimat Glomerular Filtration Rate 49, BUN/Creatinine Ratio 18, Glucose Level 128, Calcium Level 9.3, Corrected Calcium 9.5, Total Bilirubin 0.3, Aspartate Amino Transf (AST/SGOT) 29, Alanine Aminotransferase (ALT/SGPT) 51, Alkaline Phosphatase 73, Total Protein 6.9, Albumin 3.8 Discharge Home Medications: Active Scripts Active Aspirin 325 Mg Tablet 325 Mg PO DAILY@0900 Amlodipine Besylate 5 Mg Tablet 5 Mg PO DAILY Metoprolol Succinate 100 Mg Tab.er.24h 100 Mg PO DAILY Metoprolol Succinate 50 Mg Tab.er.24h 50 Mg PO DAILY@1800 Lipitor (Atorvastatin Calcium) 40 Mg Tablet 40 Mg PO HS Reported Euthyrox (Levothyroxine Sodium) 112 Mcg Tablet 112 Mcg PO DAILY Tylenol Extra Strength (Acetaminophen) 500 Mg Tablet 500 Mg PO PRN Claritin (Loratadine) 10 Mg Tablet 10 Mg PO DAILY Vitamin D3 (Cholecalciferol (Vitamin D3)) 50 Mcg Capsule 50 Mcg PO SAT Fenofibrate (Fenofibrate Nanocrystallized) 145 Mg Tablet 145 Mg PO HS Clonidine HCl 0.1 Mg Tablet 0.1 Mg PO HS Instructions to patient/family Please see electronic discharge instructions given to patient. Diagnosis/Problems Diagnosis/Problems (1) Acute CVA (cerebrovascular accident) Status: Acute (2) Hypertension Status: Acute SUSI BAR DO May 07, 2020 06:48
[2020-05-07 07:33] VITALS: BP 143/86
[2020-05-07] MEDS: ASPIRIN 325 MG (5 GR) TABLET PO SCH (08:25)
[2020-05-07] MEDS: LORATADINE (CLARITIN) 10 MG TAB PO SCH (08:25)
[2020-05-07] MEDS: amLODIPine 5 MG (NORVASC) TAB PO SCH (08:26)
[2020-05-07] MEDS: meTOprolol SUCCINATE 100 MG (TOPROL XL) TAB PO SCH (08:26)
[2020-05-07] MEDS: polyethylene glycoL POWDER 17 GM (MIRALAX) PACK PO SCH (08:27)
[2020-05-07] MEDS: DOCUSATE SODIUM 100 MG (COLACE) CAP PO SCH (08:27)
[2020-05-07] MEDS: SENNA W/DOCUSATE (SENOKOT S) TABLET PO SCH (08:27)
--- NOTE | 2020-05-07 11:16 | Progress Note - Cardiology ---
Cardiology SOAP Progress Note Subjective: No new symptoms Focal weakness has improved since time of admission Gen weakness present, but better No cp or palp or syncope or shortness of breath No n/v/d Objective: I&O/Vital Signs 05/07/20 05/07/20 05/07/20 05/07/20 01:33 06:00 07:00 07:33 Temp 36.2 36.2 Pulse 73 77 75 77 Resp 18 18 B/P (MAP) 143/86 (105) 143/86 (105) Pulse Ox 95 95 O2 Delivery Room Air Room Air 05/07/20 09:00 O2 Delivery Room Air 05/06/20 23:59 Intake Total 1200 ml Balance 1200 ml Weight (Pounds): 195 Weight (Calculated Kilograms): 88.041486 Constitutional: AAO x 3, well-developed, well-nourished Cardiovascular: regular rate-rhythm Gastrointestional: No tender; soft, round, audible bowel sounds Extremities: no lower extremity edema bilateral Neurologic/Psychiatric: other (RUE and RLE 4/5) Skin: No rash on exposed areas, No ulcerations on exposed areas Results/Procedures: Labs Laboratory Tests 05/06/20 05:35 A/P: Assessment: 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
--- NOTE | 2020-05-07 11:25 | Therapy Team Discharge Summary ---
Therapy Discharge Summary Discharge Recommendations Date of Discharge Physical Therapy Patient came to rehab following a CVA. Upon evaluation patient performed bed mobility with independence, supine to sit min assist, sit to supine independent, sit <-> stand CGA, transfers CGA, car transfer CGA, ambulated 120' with a rolling walker with CGA (including 50' with at least 2 turns of 90 degrees and 10' over an uneven surface), went up and down 1 step using a rolling walker with CGA, and picked up an object from the floor with CGA. Patient has been performing bed mobility and transfer training, balance and endurance training, functional strengthening, stair training, gait training, and education. 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 Now, patient performs bed mobility and transfers with independence, car transfer independent, ambulates 500' with a rolling walker with setup (including 50' with at least 2 turns of 90 degrees and 10' over an uneven surface), can pear picker an object from the floor with independence, and can go up and down 12 steps using 2 handrails with setup. Patient is discharging from this facility today and will be discharged from PT at this time. 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 PT Mcfp Goals Time Frame: May 21, 2020 Roll Left to Right (QC): 6 (met 05/06/20) Sit to Lying (QC): 6 (met 05/06/20) Lying-Sitting on Side/Bed(QC): 6 (met 05/06/20) Sit to Stand (QC): 6 (met 05/06/20) Chair/Uxd-jz-Nwvge Xfer(QC): 6 (met 05/06/20) Car Transfer (QC): 6 (met 05/06/20) Does the Patient Walk: Yes Walk 10 feet (QC): 6 Walk 10ft-Uneven Surface(QC): 6 Walk 50ft with 2 Turns (QC): 6 Walk 150 ft (QC): 6 Wheel 50 feet with 2 turns (QC: 9 1 Step (curb) (QC): 4 (met 05/06/20) 4 Steps (QC): 4 (met 05/06/20) 12 Steps (QC): 88 (patient performed 05/06/20) Picking up an Object (QC): 5 (met 05/06/20) OT Mcfp 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 2=Patient will verbalize/demonstrate understanding of assistive devices/modifications for ADL. 3=Patient will improve strength/tolerance for activity to enable patient to perform ADL's. ELISABETH RODRIGUEZ PT May 07, 2020 11:25
--- NOTE | 2020-05-07 13:45 | Therapy Team Discharge Summary ---
Therapy Discharge Summary Discharge Recommendations Date of Discharge Occupational Therapy Pt admits from ARU 04/30 with R side weakness due to CVA. Pt admits with the ability to complete showering/ toileting with SBA, LB dressing/ footwear with min A, and UB dressing with s/u. Pt and OT staff work towards increased fx IND with NM reji, UB strengthening, fx mobility, ADL retraining and AE/ safety training. Pt does not meet all LTGs by end of sessions. Pt d/c's home with recommendations of grab bars and SUP during showering tasks and intermittent supervision from spouse. Pt d/c's home at this time with spouse. 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 PT Custodian Manager Goals Time Frame: May 21, 2020 Roll Left to Right (QC): 6 (met 05/06/20) Sit to Lying (QC): 6 (met 05/06/20) Lying-Sitting on Side/Bed(QC): 6 (met 05/06/20) Sit to Stand (QC): 6 (met 05/06/20) Chair/Abe-ho-Ssjtz Xfer(QC): 6 (met 05/06/20) Car Transfer (QC): 6 (met 05/06/20) Does the Patient Walk: Yes Walk 10 feet (QC): 6 Walk 10ft-Uneven Surface(QC): 6 Walk 50ft with 2 Turns (QC): 6 Walk 150 ft (QC): 6 Wheel 50 feet with 2 turns (QC: 9 1 Step (curb) (QC): 4 (met 05/06/20) 4 Steps (QC): 4 (met 05/06/20) 12 Steps (QC): 88 (patient performed 05/06/20) Picking up an Object (QC): 5 (met 05/06/20) OT Fpc Goals Custodian Manager Goals Time Frame: May 14, 2020 Eating (QC): 6 Oral Hygiene (QC): 6 Shower/Bathe Self (QC): 6 Upper Body Dressing (QC): 6 Lower Body Dressing (QC): 6 On/Off Footwear (QC): 6 Toileting Hygiene (QC): 6 Toilet/Commode Transfer (QC): 6 (met 05/06/20) Additional Goals: 1-Demonstrate ADL Tasks, 2-Verbalize Understanding, 3- ImproveStrength/Vanesa 1=Demonstrate adherence to instructed precautions during ADL tasks. 2=Patient will verbalize/demonstrate understanding of assistive device s/modifications for ADL. 3=Patient will improve strength/tolerance for activity to enable patient to perform ADL's. KANG ODONNELL OTR May 07, 2020 13:45
[2020-05-07 15:07] VITALS: BP 143/86
== END 2020-05-07 14:00 | disposition home health service (06) | DRG 57 ==
PROVIDERS: ADMIT Internal Medicine; ATTEND Internal Medicine
DX: I69.351 Hemiplegia and hemiparesis following cerebral infarction affecting right dominant side (principal); Z68.41 Body mass index [BMI] 40.0-44.9, adult; I10 Essential (primary) hypertension; E78.00 Pure hypercholesterolemia, unspecified; E78.5 Hyperlipidemia, unspecified; E03.9 Hypothyroidism, unspecified; C50.919 Malignant neoplasm of unspecified site of unspecified female breast; E66.9 Obesity, unspecified; Z79.82 Long term (current) use of aspirin; Z80.0 Family history of malignant neoplasm of digestive organs
CPT/HCPCS: 36415; 80053; 82962; 85025; 87081

== ENCOUNTER → 2020-05-07 | Outpatient (CLI) | payer MEDICARE, OTHER ==
[~2020-05-07] MED LIST changes: +AMLO-250 PO; +ASPI-808 PO; +LIDOCAINE 1% INJ 20 ML 20 ML VIAL INJ ONE; +LIDOCAINE 1% INJ 20 ML 20 ML VIAL ONE; +METO50TA7 PO; +MTP100TCR PO
--- NOTE | 2020-05-07 15:25 | OPERATIVE REPORT ---
DATE OF SERVICE: 05/07/2020 ATTENDING PHYSICIAN: Dr. Mays. CLINICAL DIAGNOSIS: Cryptogenic stroke. INDICATIONS: The patient is a 69-year-old lady who has had a stroke and the etiology remains undetermined. Atrial fibrillation is a possibility. Implantable loop recorder implantation was carried out today after having obtained an informed consent. DESCRIPTION OF PROCEDURE: [facility] The left prepectoral area was prepared and draped in the usual sterile fashion. Lidocaine 1% was used for local anesthesia. The tools provided with the [employer] LINQ device were used to make a subcutaneous pocket anterior to the fourth intercostal space on the left side into which the device was placed and the skin edges were closed using Dermabond and Steri-Strips. The serial number of the device is [id number]. The patient tolerated the procedure well. Job ID: [id number] DocumentID: [id number] Dictated Date: 05/07/2020 10:37:22 Director Of Marketing [employer] Date: 05/07/2020 15:23:54 Dictated By: TERRI BECKHAM MD, MA, FACP, FACC,
== END ==
LOC: CATH 10:02
PROVIDERS: ATTEND Internal Medicine Cardiovascular Disease
DX: Z01.89 Encounter for other specified special examinations (principal)
CPT/HCPCS: 33285; C1764